=== PATIENT | female | born 1955 | race Caucasian/White ===

== ENCOUNTER 2019-05-02 17:39 | Inpatient (IN) | payer MEDICARE, MEDICAID, SELFPAY ==
[2019-05-02] VITALS (7 sets, daily range): BP systolic 124–149; BP diastolic 59–83; PULSE 78–93; RESP 15–19; TEMP 36.5; O2SAT 94–98; BMI 19.9
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
--- NOTE | 2019-05-02 17:52 | ECG_ITS ---
Measurements Intervals [place] Rate: 92 P: 71 IA: 133 QRS: 36 QRSD: 96 T: 62 QT: 366 QTc: 453 SINUS RHYTHM SEPTAL MYOCARDIAL INFARCTION , OF INDETERMINATE AGE [40+ ms Q WAVE IN V1/V2] No previous ECG available for comparison Electronically Signed On 05-02-2019 21:19:51 TECHNICAL FELLOW by Rebeca Mckeon M.D. [id number]
[2019-05-02] MEDS: morphine 4 mg/mL SDV 1 mL IVP (18:02)
[2019-05-02] MEDS: ondansetron 2 mg/ML SDV 2 mL 4 MG IVP (18:02)
[2019-05-02 18:12] LABS: Basophils % 0.5 %; Eosinophils % 0.5 %; Hematocrit 28.1 % (37.0-47.0); Hemoglobin 8.5 g/dL (11.5-15.3); Lymphocytes # 1.5 10^3/uL (0.8-4.8); Lymphocytes % 16.5 %; Mean Corpuscular HGB Conc 30.2 g/dL (30.0-36.0); Mean Corpuscular Hemoglobin 21.7 pg (28.0-34.0); Mean Corpuscular Volume 71.7 fL (81-99); Monocytes # 0.8 10^3/uL (0.2-0.9); Monocytes % 9.2 %; Neutrophils # 6.4 10^3/uL (1.8-7.7); Nucleated Red Blood Cells % 0 %; Platelet Count 231 10^3/cmm (130-400); Red Blood Count 3.92 10^6/uL (4.1-5.3); Red Cell Distribution Width 20.9 % (12.1-15.1); White Blood Count 8.8 10^3/uL (4.0-10.0)
[2019-05-02 18:27] LABS: Troponin(5th) Baseline 30 ng/mL (0-10)
[2019-05-02 18:28] LABS: Alanine Aminotransferase 49 U/L (0-33); Albumin Level 2.3 g/dL (3.5-5.2); Alkaline Phosphatase 142 IU/L (35-105); Anion Gap 11.3 (5-19); Aspartate Amino Transferase 50 U/L (0-32); Blood Urea Nitrogen 13 mg/dL (8-23); Calcium 8.3 mg/dL (8.5-10.5); Carbon Dioxide 25 mmol/L (22-29); Chloride 98 mmol/L (98-107); Globulin 4.8 g/dL (1.3-4.6); Glucose 83 mg/dL (65-115); Lipase 59 U/L (13-60); Potassium 3.3 mmol/L (3.5-5.1); Sodium 131 mmol/L (136-145); Total Bilirubin 0.6 mg/dL (0.15-1.2); Total Protein 7.1 g/dL (6.6-8.7)
--- NOTE | 2019-05-02 19:03 | XRR_ITS ---
PROCEDURE INFORMATION: Exam: XR Chest, 1 View Exam date and time: 05/02/2019 7:41 PM Age: 63 years old Clinical indication: Chest pain; Type not specified TECHNIQUE: Imaging protocol: XR of the chest Views: 1 view. COMPARISON: CR Chest 2 views* [id number] 01/29/2019 3:40 AM FINDINGS: Lungs: Opacification left upper lobe left mid lung and to a lesser degree the left lung base. Subpulmonic effusion. Findings are progressive from 01-29-19. Correlate regarding known history. Pleural space: See Lungs Finding. Heart/Mediastinum: Unremarkable. No cardiomegaly. Bones/joints: Unremarkable. XR/XR chest 1V portable [id number] IMPRESSION: Opacification left upper lobe left mid lung and to a lesser degree the left lung base. Subpulmonic effusion. Findings are progressive from 01-29-19. Correlate regarding known history.
--- NOTE | 2019-05-02 19:15 | PC.NURSE ---
Pt provided with meal.
--- NOTE | 2019-05-02 19:18 | PC.NURSE ---
Introduced self to patient and initiated vital signs. Patient presents A&O x 4. NAD, ABCs intact, MAEW and agreeable to treatment. Respirations are even and unlabored. Pt states that the chief complaint for the ER visit today is due to chest pain which pt rates as 1/10 at present due to recent dose of morphine. IV observed in right AC and flushed for patency. Pt denies any vision disturbances or lightheadedness. Bed left in lowest position in semi-fowlers with side rails up.Reassured patient of needs and will continue to monitor.
--- NOTE | 2019-05-02 19:42 | CTR_ITS ---
PROCEDURE INFORMATION: Exam: CT Angiography Chest With Contrast Exam date and time: 05/02/2019 7:59 PM Age: 63 years old Clinical indication: Cough; Additional info: Cp TECHNIQUE: Imaging protocol: Computed tomographic angiography of the chest with intravenous contrast. 3D rendering: MIP and/or 3D reconstructed images were created by the technologist. Total DLP: 509.59 mGy-cm Radiation optimization: All CT scans at this facility use at least one of these dose optimization techniques: automated exposure control; mA and/or kV adjustment per patient size (includes targeted exams where dose is matched to clinical indication); or iterative reconstruction. Contrast material: OMNI 350; Contrast volume: 95 ml; Contrast route: IV; COMPARISON: CR XR chest 1V portable [id number] 05/02/2019 7:29 PM FINDINGS: Pulmonary arteries: Normal. No pulmonary emboli. Aorta: Unremarkable. No aortic aneurysm. No aortic dissection. Lungs: Calcified granuloma in the left lower lobe. 5 mm nodule in the right upper lobe, image 9. 4 mm nodule in the right lower lobe, image 30. Mild scattered tree-in-bud type opacities within the right upper and left lower lobes. Dense consolidation throughout the majority of the left upper lobe with loss of multiple air bronchograms. Mild atelectasis in the posterior left lower lobe. Pleural space: Small left pleural effusion. Heart: Unremarkable. No cardiomegaly. No pericardial effusion. Spleen: Enlarged spleen measuring 14.4 cm. Intraperitoneal space: Mild ascites. Lymph nodes: Calcified left hilar lymph nodes. Subcentimeter mediastinal lymph nodes. Bones/joints: Unremarkable. No acute fracture. Soft tissues: Unremarkable. CT/CT angio chest PE protcl [id number] IMPRESSION: 1. No evidence for pulmonary embolus. 2. Dense consolidation with loss of air bronchograms involving a large portion of the left upper lobe. This most likely represents lobar pneumonia. An underlying neoplastic process cannot be excluded. CT follow-up to document normal expected resolution after appropriate therapy recommended. 3. Scattered tree-in-bud opacities in the right upper and left lower lobes is consistent with atypical infection. 4. Small left pleural effusion. 5. Mild ascites. 6. Enlarged spleen. 7. Pulmonary nodules measuring up to 5 mm. For patients at low risk (minimal or absent history of smoking and of other known risk factors), no routine follow-up is indicated. For patients at high risk (history of smoking or of other known risk factors), consider optional CT at 12 months. (Brandyn et al., Fleischner Society, 2017). Radiation Dose CTDIVOL = (mGy): DLP = 509.59 (mGy-cm)
--- NOTE | 2019-05-02 19:52 | ECG_ITS ---
Measurements Intervals [place] Rate: 88 P: 57 WI: 139 QRS: 38 QRSD: 98 T: 64 QT: 375 QTc: 455 SINUS RHYTHM SEPTAL MYOCARDIAL INFARCTION , OF INDETERMINATE AGE [40+ ms Q WAVE IN V1/V2] No previous ECG available for comparison Electronically Signed On 05-02-2019 21:23:05 EXHAUSTER ENGINEER by Rebeca Mckeon M.D. [email or web address]
[2019-05-02 20:23] LABS: Troponin 5 2HR 30.27 ng/mL (0-10); Troponin 5 2HR Delta 0.27 ABS# (0-10)
[2019-05-02] MEDS: iohexol 350 mg/mL 100 mL Btl 95 ML IV (21:54)
[2019-05-02] MEDS: cefTRIAXone 1,000 MG in sodium chloride 0.9% (plus) 50 ML 100 MG IV (22:43)
[2019-05-02] MEDS: azithromycin 500 MG in sodium chloride 0.9% 250 ML 250 MG IV (23:03)
--- NOTE | 2019-05-02 23:52 | ECG_ITS ---
Measurements Intervals [place] Rate: 88 P: 69 WA: 141 QRS: 36 QRSD: 115 T: 39 QT: 387 QTc: 469 SINUS RHYTHM SEPTAL MYOCARDIAL INFARCTION , OF INDETERMINATE AGE [40+ ms Q WAVE IN V1/V2] Compared to ECG 05/02/2019 20:52:42 No significant changes Electronically Signed On 05-03-2019 11:15:46 PEST CONTROL SERVICE SALES AGENT by Rebeca Mckeon M.D. [id number]
[2019-05-03] VITALS (20 sets, daily range): BP systolic 108–157; BP diastolic 53–78; PULSE 80–109; RESP 16–20; TEMP 36.6–37.4; O2SAT 90–97
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
[2019-05-03 00:26] LABS: Troponin 5 6HR 32.14 ng/mL (0-10); Troponin 5 6HR Delta 2.14 ng/L (0-12)
[2019-05-03] MEDS: ipratropium-albuterol 3 mL Neb INHALATION ×3 (02:38→20:13)
[2019-05-03] MEDS: sodium chlor 0.9% + KCl 20 mEq 20 MEQ/1,000 ML BAG 100 MEQ IV (03:12)
--- NOTE | 2019-05-03 03:16 | PC.NURSE ---
At bedside and patient is holding a cup of tea. Explained to the patient that the physician wants her to have nothing to eat or drink except sips with medications. Patient states, I don't care this will help me lungs. I am entitled to some privileges and drinking this tea is one of them. Encouraged patient to let me have the tea as she may need to have some tests today that would require her to have nothing by mouth. Patient states, I tell you what my ribs hurt from coughing if you give me a pain pill I will give you the tea. Explained to the patient I would look at her orders and see if she has something for pain but that she really needed to stop drinking the tea so we can treat her appropriately. Patient states, I will wait for my pain pill.
[2019-05-03] MEDS: HYDROcodone-acetaminophen 5-325 mg Tablet 1 TAB PO (03:30)
--- NOTE | 2019-05-03 03:30 | PC.NURSE ---
Patient drank all of the tea before receiving her pain pill. All water and liquids moved away from patient's bedside table at this time. Reminded patient that she in nothing by mouth until the order is changed.
--- NOTE | 2019-05-03 04:58 | PC.NURSE ---
Patient voided on arrival to the floor and had not voided since. Updated patient that she needs to void in the hat and that we need a urine sample. Patient verbalized understanding.
[2019-05-03 05:40] LABS: Magnesium 1.7 mg/dL (1.7-2.3); Phosphorus 3.3 mg/dL (2.5-4.5)
[2019-05-03 05:47] LABS: Iron 12 ug/dL (37-145); Percent Saturation 4.7 % (20-50); Thyroid Stimulating Hormone 3.04 uIU/mL (0.27-4.20); Total Iron Binding Capacity 251 mcg/dl; Unsaturated Iron Binding 239 ug/dL (112-347)
[2019-05-03 05:53] LABS: INR 1.23 (0.8-1.2)
[2019-05-03 05:54] LABS: Partial Thromboplastin Time 29.2 SECONDS (23.9-36.7)
[2019-05-03 06:06] LABS: NT Pro B Type Natriuretic Pept 356 pg/mL (0-125)
--- NOTE | 2019-05-03 09:07 | CT_ITS ---
WS: [id number] CT ABDOMEN PELVIS TECHNIQUE: Contrast-enhanced CT of the abdomen and pelvis with coronal and sagittal reformatted image s. CLINICAL INFORMATION: liver cirhosis, galbladder mass? COMPARISON: CT 2 18,016 DLP: 539.[address] scans at [facility] use at least one of these dose optimization techniques: automat ed exposure control; mA and/or kV adjustment per patient size (includes targeted exams where dose is matched to clinical indication); or iterative reconstruction. FINDINGS: Cirrhotic contour to the liver. Small amount of perihepatic ascites. Fluid in the gallbladder fossa l ikely due to hepatic disease. Cholelithiasis. Splenomegaly. Findings suggestive of liver cirrhosis wi th portal hypertension. Small left pleural effusion with left upper lobe consolidation similar in appearance to the recent CT A. Trace right pleural fluid. Normal GE junction. Normal pancreas. Portal vein and splenic vein appea r patent. Diffuse body wall anasarca. Mesenteric edema. Adrenal glands are normal. Renal parenchymal enhancement. Aortic calcification. Small amount of ascites in the pelvis. Scattered stool in the sigmoid colon. Lumbar curve. CT/CT abdomen pelvis w con* [id number] IMPRESSION: 1. Liver cirrhosis with splenomegaly. Findings suggestive of portal hypertensi on. 2. Small amount of perihepatic fluid. Small amount of pelvic ascites. 3. Diffuse body wall anasarca. 4. Small left pleural effusion with left upper lobe consolidation and pneumoni a similar to the prior PE study. 5. Normal renal parenchymal enhancement. No hydronephrosis. 6. Cholelithiasis.
[2019-05-03 10:09] LABS: C Reactive Protein 56.8 mg/L (0.0-4.9)
[2019-05-03 10:17] LABS: Gamma Glutamyl Transferase 34 U/L (5-36); Thyroid Stimulating Hormone 3.03 uIU/mL (0.27-4.20)
[2019-05-03 10:18] LABS: Procalcitonin 0.22 ng/mL (0-0.5)
[2019-05-03 10:20] LABS: HIV 1 & 2 Antibody Non-Reactive (Non-Reactiv); HIV 1 & 2 Antigen Non-Reactive (Non-Reactiv)
[2019-05-03 10:23] LABS: Hepatitis A Antibody IgM. Non-Reactive (Nonreactive); Hepatitis B Core IgM Non-Reactive (Nonreactive); Hepatitis B Surface Antigen. Non-Reactive (Nonreactive); Hepatitis C Virus Antibody Reactive (Nonreactive)
[2019-05-03 10:26] LABS: Rapid Plasma Reagin Syphilis Nonreactive (Nonreactive)
[2019-05-03 10:29] LABS: Ferritin 39 ng/mL (15-150)
[2019-05-03] MEDS: morphine 4 mg/mL SDV 1 mL 1 MG IVP ×2 (10:31→22:53)
[2019-05-03] MEDS: LORazepam 2 mg/mL INJ 1 mL 1 MG IVP (10:32)
[2019-05-03 10:43] LABS: Erythrocyte Sedimentation Rate 33 mm/hr (0-15)
--- NOTE | 2019-05-03 15:09 | P.PN_ITS ---
Subjective Subjective: Interval history: This morning patient continues to have intermittent episodes of hemoptysis, has a lot of pain in the left side of her chest wall, is quite anxious this morning, is quite anxious about having a bronchoscopy and a needle biopsy, is quite anxious and teary about the prospect of having cancer Vitals/I&O/Wt Last Vital Signs Temp 99.1 F 05/03/19 13:43 Pulse 93 05/03/19 13:43 Resp 18 05/03/19 13:43 BP 135/77 05/03/19 12:00 Pulse Ox 96 05/03/19 13:43 05/03/19 05/03/19 05/03/19 06:59 14:59 22:59 Intake Total 730 / 730 Output Total 500 / 500 700 / 700 Balance 230 / 230 -700 / -700 Weight last 48 hrs Weight 63.276 kg Weight 61.235 kg Physical Exam Const: COMMON NORMALS: no apparent distress and oriented x3 HENMT: COMMON NORMALS: normocephalic HEAD & SCALP: normocephalic Neck/C-Spine: COMMON NORMALS: no JVD Resp: COMMON NORMALS: normal respiratory effort, no retractions, no use of accessory muscles and clear to auscultation bilaterally AUSCULTATION: clear to auscultation bilaterally Cardio: COMMON NORMALS: no JVD, regular rate, regular rhythm, S1 normal heart sound and S2 normal heart sound RATE: regular rate RHYTHM: regular rhythm HEART SOUNDS: S1 normal and S2 normal GI: COMMON NORMALS: normal to inspection, nondistended, normoactive bowel sounds, soft to palpation, non-tender, no hepatosplenomegaly, no masses and no bruits PALPATION: Yes soft and Yes no hepatosplenomegaly Extremity: COMMON NORMALS: normal capillary refill, no clubbing, cyanosis or edema, no calf tenderness and no pedal edema Neuro: COMMON NORMALS: oriented x3 Psych: COMMON NORMALS: mental status grossly normal Data : 05/02/19 18:00 05/02/19 18:00 Micro: Microbiology 05/02/19 18:00 Blood Culture - Preliminary Blood SPECIMEN COLLECTED 05/02/19 22:36 Blood Culture - Preliminary Blood SPECIMEN COLLECTED A&P Assessment and plan (1) Left upper lobe pneumonia: -Pro-Tigre 0.22, CRP 56.8 -Unlikely pneumonia, but will continue azithromycin and Rocephin -Follow blood cultures, respiratory cultures, AFB Status: Acute Code(s): J18.9 - Pneumonia, unspecified organism (2) Mass of left lung: This was identified as early as last January but she has been fearful of work-up and refused to thus far. She is currently willing to consider. I do not know that she will agree to care which might be recommended if this does turntable engineer to be cancer. -Patient had in the past not elected to have treatment, wanted to try herbal treatments and alternative medicine -Patient is agreeable for bronchoscopy, as transthoracic needle biopsy if required, advised the risk and benefits, voiced understanding, all questions answered, agreed to proceed -Is quite teary and anxious about the prospect of the test, the prospect of possibly having cancer, but she states that she is in the hospital because she wants evaluation -She is a full code, her next of kin is Grace who is her neighbor numbers [phone], her son is Pascual, [phone], most of her family is in [place] -Patient states that she lives in [facility] -I have reviewed the images with Dr. Xavier, images look a lot like pulmonary malignancy, agreed for further evaluation hopefully on Monday Plan: -Hopefully will have a bronchoscopy and possible biopsy on Monday -Ordered AFP, TB QuantiFERON to rule out TB Status: Chronic Code(s): R91.8 - Other nonspecific abnormal finding of lung field (3) Microcytic anemia: -has evidence of iron deficiency anemia, ferritin 39, iron 12, start oral replacement -Some component can be chronic disease related to malignancy Status: Acute Code(s): D50.9 - Iron deficiency anemia, unspecified (4) Bipolar 1 disorder: According to old psychiatric records here. Not on any medication by her choosing. She almost seems more schizophrenic or schizotypical in talking with her. Requires attention and effort and reassurance but generally cooperative despite her fears and preferences at the moment -Has had multiple inpatient admissions for bipolar disorder, has not been on any treatment for some time. Status: Chronic Code(s): F31.9 - Bipolar disorder, unspecified (5) Chronic hepatitis C virus genotype 1b infection: With at least some evidence of cirrhosis from this as evidenced by minimal transaminitis, some ascites fluid, splenomegaly. -CT scan shows evidence of splenomegaly and liver cirrhosis -We will require treatment for hepatitis C at some point, and further evaluation with assistant unit forester or local physician Status: Chronic Code(s): B18.2 - Chronic viral hepatitis C (6) Protein calorie malnutrition: Status: Acute Qualifiers: Protein-calorie malnutrition severity: moderate Qualified Code(s): E44.0 - Moderate protein-calorie malnutrition Code(s): E46 - Unspecified protein-calorie malnutrition (7) Hypertrophic pulmonary osteoarthropathy: Presumptive diagnosis based on examination of hands and other clinical findings Status: Chronic Code(s): M89.40 - Other hypertrophic osteoarthropathy, unspecified site (8) Nicotine dependence, cigarettes, with other nicotine-induced disorders: Possibly in early remission Status: Chronic Code(s): F17.218 - Nicotine dependence, cigarettes, with other nicotine-induced disorders Additional A&P Information GI prophylaxis with Protonix Lactobacillus Check TSH Check urinalysis Periodically monitor LFTs for change When taking p.o. supplements Nicotine patch as needed SCDs for DVT prophylaxis, no pharmacological prophylaxis secondary to current hemoptysis and anemia PT evaluation patient financial services manager consult to assist with delineating support system and possible follow-up. 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 Current disposition plan is home and I doubt that patient would consider anything else but we will need to see if she might benefit from any services at least in the short-term Full code currently. I attempted to discuss this with patient but it upset her. I get a sense she does not want to think about such a topic because it scares her but knows that she probably should think about it. Attestations Medical Necessity Statement*: Patient requires hospitalization for pneumonia, lung mass, Coding Level of Care Code Acute Fertilizer Applicator for g Fwd Diagnoses Left upper lobe pneumonia J18.9 Mass of left lung R91.8 Microcytic anemia D50.9 Bipolar 1 disorder F31.9 Chronic hepatitis C virus genotype 1b infection B18.2 Protein calorie malnutrition E44.0 Protein-calorie malnutrition severity: moderate Hypertrophic pulmonary osteoarthropathy M89.40 Nicotine dependence, cigarettes, with other nicotine-induced disorders F17.218
--- NOTE | 2019-05-03 16:18 | PC.PT ---
PT evaluation attempted this afternoon, patient complaining of pain all over; nursing staff report patient up several times today to and from toilet with standby assistance, will discuss with physician
[2019-05-03] MEDS: ferrous sulfate EC 325 mg Tablet PO (17:25)
[2019-05-03] MEDS: lactobacillus 1 Tablet 1 TAB PO (17:25)
[2019-05-03] MEDS: cefTRIAXone 1,000 MG in sodium chloride 0.9% (plus) 50 ML 100 MG IV (22:44)
[2019-05-04] VITALS (17 sets, daily range): BP systolic 110–130; BP diastolic 55–64; PULSE 64–108; RESP 16–24; TEMP 36.6–38.3; O2SAT 88–98
--- NOTE | 2019-05-04 05:16 | PC.NURSE ---
Changed patient's bed at this time. Patient continues to incontinent. When I ask patient what is happening she does not answer me. Explained to patient that she used the bathroom last night and I need to know if she feels like something changed. Explained to patient that the doctor has ordered a urine sample and it has been a over 24 hours since it was ordered. Patient states, I am just a old lady. I can't help it. Asked patient to use the call light and call out as soon a she feel like she needs to go.
[2019-05-04 05:40] LABS: Basophils % 0.3 %; Eosinophils % 0.4 %; Hematocrit 26.6 % (37.0-47.0); Hemoglobin 8.1 g/dL (11.5-15.3); Lymphocytes # 1.2 10^3/uL (0.8-4.8); Lymphocytes % 12.3 %; Mean Corpuscular HGB Conc 30.5 g/dL (30.0-36.0); Mean Corpuscular Hemoglobin 21.9 pg (28.0-34.0); Mean Corpuscular Volume 71.9 fL (81-99); Mean Platelet Volume 10.7 fL (7.4-10.4); Monocytes % 9.8 %; Neutrophils # 7.7 10^3/uL (1.8-7.7); Neutrophils % 76.8 %; Nucleated Red Blood Cells % 0 %; Platelet Count 199 10^3/cmm (130-400); Positive M 1
[2019-05-04 06:09] LABS: Alanine Aminotransferase 33 U/L (0-33); Albumin Level 1.9 g/dL (3.5-5.2); Alkaline Phosphatase 122 IU/L (35-105); Anion Gap 11.7 (5-19); Aspartate Amino Transferase 39 U/L (0-32); Blood Urea Nitrogen 9 mg/dL (8-23); Calcium 8.1 mg/dL (8.5-10.5); Carbon Dioxide 24 mmol/L (22-29); Chloride 100 mmol/L (98-107); Globulin 4.3 g/dL (1.3-4.6); Glucose 111 mg/dL (65-115); Magnesium 1.7 mg/dL (1.7-2.3); Phosphorus 3.1 mg/dL (2.5-4.5); Potassium 3.7 mmol/L (3.5-5.1); Sodium 132 mmol/L (136-145); Total Bilirubin 0.4 mg/dL (0.15-1.2); Total Protein 6.2 g/dL (6.6-8.7)
--- NOTE | 2019-05-04 06:30 | PC.NURSE ---
Patient ambulated to the bathroom at this time with one assist. Patient provided urine sample and had a large bowel movement. Patient is requesting something to drink. Reminded patient that she is to have nothing by mouth until the doctor changes the order. Patient verbally states okay.
--- NOTE | 2019-05-04 06:35 | PC.NURSE ---
US at bedside at bedside at this time.
[2019-05-04 06:38] LABS: Slide Review Slide Review Perform
[2019-05-04 07:58] LABS: Blood Urine 3+ (Negative); Glucose Urine UA Norm (Normal); Ketones Urine Negative (Negative); Protein Urine Trace (Negative); Urine Appearance Clear (CLEAR); Urine Color Yellow (Yellow); pH Urine 5 (5-7)
[2019-05-04 07:59] LABS: Bilirubin Urine Neg (NEGATIVE); Nitrate Urine Negative (Negative); Urobilinogen Urine 4 mg/dL (Negative)
[2019-05-04 08:00] LABS: Add Urine Microscopic? YES; Leukocyte Esterase Urine Negative (Negative)
[2019-05-04] MEDS: acetaminophen 325 mg Tablet 500 MG PO (08:24)
[2019-05-04] MEDS: ferrous sulfate EC 325 mg Tablet PO ×2 (08:24→17:41)
[2019-05-04] MEDS: ipratropium-albuterol 3 mL Neb INHALATION ×3 (08:25→20:19)
[2019-05-04] MEDS: azithromycin 250 mg Tablet 500 MG PO (08:26)
[2019-05-04] MEDS: lactobacillus 1 Tablet 1 TAB PO ×2 (08:28→17:40)
[2019-05-04] MEDS: pantoprazole DR 40 mg Tablet PO (08:28)
[2019-05-04 08:30] LABS: WBC Urine 0-4 /hpf (0-5)
[2019-05-04 08:31] LABS: Add Urine Culture? No; Bacteria Urine TRACE; Calcium Oxalate Crystals Urine 0-4 /hpf; Mucus Urine TRACE; Squamous Epithelial Cell Urine 0-4 (0-5)
--- NOTE | 2019-05-04 09:03 | USR_ITS ---
PROCEDURE INFORMATION: Exam: US Abdomen Complete Exam date and time: 05/04/2019 6:27 AM Age: 63 years old Clinical indication: Abnormal findings; Abnormal lab test; Elevated liver enzymes; Additional info: Transaminitis TECHNIQUE: Imaging protocol: Real-time ultrasound of the abdomen with image documentation. COMPARISON: US GALLBLADDER 04/15/2015 7:[address] ABDOMEN/PELVIS 05/03/2019 10:05:23 AM FINDINGS: Liver: The liver parenchyma is heterogeneous which can be associated with cirrhosis. No focal liver mass or intrahepatic biliary ductal dilatation. Gallbladder: There is cholelithiasis. The gallbladder is contracted. Nonspecific gallbladder wall thickening. Common bile duct: The common bile duct measures 5 mm in diameter. Pancreas: The visualized portion of the pancreas is within normal limits. Right kidney: The right kidney measures 11.8 cm in length. No hydronephrosis. Left kidney: The left kidney measures 9.6 cm in length. No hydronephrosis. Spleen: The spleen measures 10.7 cm in length and is homogeneous. Aorta: The visualized portion of the abdominal aorta is within normal limits. Inferior vena cava: The visualized portion of the inferior vena cava is within normal limits. Intraperitoneal space: There is ascites. US/US abdomen complete* [id number] IMPRESSION: 1. Heterogeneous liver parenchyma which can be seen with cirrhosis. 2. Cholelithiasis. No biliary ductal dilatation.
--- NOTE | 2019-05-04 09:11 | PC.NURSE ---
student financial services counselor approached me with concern over a patient statement of If I could get my clothes from t he chair I would take that aspirin you gave me. Its in my pocket. I would take care of the pain myself. I asked patient if I could look through her medication and tea to make sure there were no potential interactions with what the phyician is prescribing for her here. Staff and security notified. Belongings were searched by two nurses in front of patient. Numerous loose medications. vitamins, herbal teas and substances identified. Physician notified. Medications placed in pyxis. Pipe, tobacco and lighters sent with security.
--- NOTE | 2019-05-04 10:19 | PC.NURSE ---
student development advisor approached this nurse with a concern stating, I overheard the patient on the phone say, 'I'm hurting so bad everywhere. If I could get over to my clothes I would take the aspirin that you gave me.' The nurse spoke with the patient and educated her on risks of taking medications while in the hospital that the physician has not prescribed because of potential interactions. The patient verbalized understanding. This nurse asked the patient if it was alright to go through personal belongings and lock loose medications in the pyxis. The patient verbalized that this was ok. Two nurses searched through belongings. Numerous items were found including: medications in unlabeled containers, vitamins, herbal teas, controlled substances, and multiple lighters and matches. The patient was educated on the importance of not smoking while on oxygen and patient verbalized understanding of information. Medications were secured in pyxis and controlled substances and lighters were given to security. Pain was addressed. Nurse to continue to monitor.
--- NOTE | 2019-05-04 13:00 | PC.PT ---
pt has bipolar, pt may not be appropriate for therapy due to pt agitation and anxiety, nsg consulted regarding same, pt refused therapy x3 despite pt ed.
[2019-05-04] MEDS: morphine 4 mg/mL SDV 1 mL 1 MG IVP ×2 (13:46→20:38)
[2019-05-04] MEDS: LORazepam 2 mg/mL INJ 1 mL 1 MG IVP (17:55)
--- NOTE | 2019-05-04 19:41 | PM.PN ---
Subjective Subjective: Interval history: Patient is doing better this morning, still quite anxious and teary about having a bronchoscopy on Monday, but otherwise is doing well Some drug paraphernalia was removed from her bedside, they were taken by security staff Vitals/I&O/Wt Last Vital Signs Temp 98.5 F 05/04/19 19:33 Pulse 97 05/04/19 19:33 Resp 24 H 05/04/19 19:33 BP 120/59 05/04/19 19:33 Pulse Ox 93 05/04/19 19:33 05/04/19 05/04/19 05/04/19 06:59 14:59 22:59 Intake Total 50 / 140 1320 / 1320 480 / 1800 Output Total 300 / 1000 600 / 600 Balance -250 / -860 1320 / 1320 -120 / 1200 Weight last 48 hrs Weight 63.276 kg Physical Exam Const: COMMON NORMALS: no apparent distress and oriented x3 HENMT: COMMON NORMALS: normocephalic HEAD & SCALP: normocephalic Neck/C-Spine: COMMON NORMALS: no JVD Resp: COMMON NORMALS: normal respiratory effort, no retractions, no use of accessory muscles and clear to auscultation bilaterally AUSCULTATION: clear to auscultation bilaterally Cardio: COMMON NORMALS: no JVD, regular rate, regular rhythm, S1 normal heart sound and S2 normal heart sound RATE: regular rate RHYTHM: regular rhythm HEART SOUNDS: S1 normal and S2 normal GI: COMMON NORMALS: normal to inspection, nondistended, normoactive bowel sounds, soft to palpation, non-tender, no hepatosplenomegaly, no masses and no bruits PALPATION: Yes soft and Yes no hepatosplenomegaly Extremity: COMMON NORMALS: normal capillary refill, no clubbing, cyanosis or edema, no calf tenderness and no pedal edema Neuro: COMMON NORMALS: oriented x3 Psych: COMMON NORMALS: mental status grossly normal Data : 05/04/19 05:32 05/04/19 05:32 Micro: Microbiology 05/02/19 18:00 Blood Culture - Preliminary Blood NEGATIVE TO DATE 05/02/19 22:36 Blood Culture - Preliminary Blood NEGATIVE TO DATE A&P Assessment and plan (1) Left upper lobe pneumonia: -Pro-Tigre 0.22, CRP 56.8 -Unlikely pneumonia, but will continue azithromycin and Rocephin -Follow blood cultures, respiratory cultures, AFB Status: Acute Code(s): J18.9 - Pneumonia, unspecified organism (2) Mass of left lung: This was identified as early as last January but she has been fearful of work-up and refused to thus far. She is currently willing to consider. I do not know that she will agree to care which might be recommended if this does returned telephone equipment appraiser to be cancer. -Patient had in the past not elected to have treatment, wanted to try herbal treatments and alternative medicine -Patient is agreeable for bronchoscopy, as transthoracic needle biopsy if required, advised the risk and benefits, voiced understanding, all questions answered, agreed to proceed -Is quite teary and anxious about the prospect of the test, the prospect of possibly having cancer, but she states that she is in the hospital because she wants evaluation -She is a full code, her next of kin is Grace who is her neighbor numbers [phone], her son is Pascual, [phone], most of her family is in [place] -Patient states that she lives in [facility] -I have reviewed the images with Dr. Xavier, images look a lot like pulmonary malignancy, agreed for further evaluation hopefully on Monday Plan: -Hopefully will have a bronchoscopy and possible biopsy on Monday -Ordered AFP, TB QuantiFERON to rule out TB Status: Chronic Code(s): R91.8 - Other nonspecific abnormal finding of lung field (3) Microcytic anemia: -has evidence of iron deficiency anemia, ferritin 39, iron 12, start oral replacement -Some component can be chronic disease related to malignancy Status: Acute Code(s): D50.9 - Iron deficiency anemia, unspecified (4) Bipolar 1 disorder: According to old psychiatric records here. Not on any medication by her choosing. She almost seems more schizophrenic or schizotypical in talking with her. Requires attention and effort and reassurance but generally cooperative despite her fears and preferences at the moment -Has had multiple inpatient admissions for bipolar disorder, has not been on any treatment for some time. Status: Chronic Code(s): F31.9 - Bipolar disorder, unspecified (5) Chronic hepatitis C virus genotype 1b infection: With at least some evidence of cirrhosis from this as evidenced by minimal transaminitis, some ascites fluid, splenomegaly. -CT scan shows evidence of splenomegaly and liver cirrhosis -We will require treatment for hepatitis C at some point, and further evaluation with windows mobile developer or local physician Status: Chronic Code(s): B18.2 - Chronic viral hepatitis C (6) Protein calorie malnutrition: Status: Acute Qualifiers: Protein-calorie malnutrition severity: moderate Qualified Code(s): E44.0 - Moderate protein-calorie malnutrition Code(s): E46 - Unspecified protein-calorie malnutrition (7) Hypertrophic pulmonary osteoarthropathy: Presumptive diagnosis based on examination of hands and other clinical findings Status: Chronic Code(s): M89.40 - Other hypertrophic osteoarthropathy, unspecified site (8) Nicotine dependence, cigarettes, with other nicotine-induced disorders: Possibly in early remission Status: Chronic Code(s): F17.218 - Nicotine dependence, cigarettes, with other nicotine-induced disorders (9) Liver cirrhosis: -Patient has radiologic and blood evidence of liver cirrhosis, and portal hypertension likely secondary to chronic hepatitis C -Patient denies hemoptysis, denies episodes of confusion, denies blacking out -Patient will need a follow-up with windows mobile developer for full evaluation of liver cirrhosis, and treatment for hepatitis C Status: Acute Code(s): K74.60 - Unspecified cirrhosis of liver Additional A&P Information GI prophylaxis with Protonix Lactobacillus Check TSH Check urinalysis Periodically monitor LFTs for change When taking p.o. supplements Nicotine patch as needed SCDs for DVT prophylaxis, no pharmacological prophylaxis secondary to current hemoptysis and anemia PT evaluation interlibrary loan services librarian consult to assist with delineating support system and possible follow-up. At one point in time she had a pillowcase cutter at [facility] here but I have no idea if that is still true. Current disposition plan is home and I doubt that patient would consider anything else but we will need to see if she might benefit from any services at least in the short-term Full code currently. I attempted to discuss this with patient but it upset her. I get a sense she does not want to think about such a topic because it scares her but knows that she probably should think about it. Attestations Medical Necessity Statement*: Requires hospitalization due to left upper lobe pneumonia, mass of lung, liver cirrhosis Coding Level of Care Code Acute Mill Representative for Chg Fwd Diagnoses Left upper lobe pneumonia J18.9 Mass of left lung R91.8 Microcytic anemia D50.9 Bipolar 1 disorder F31.9 Chronic hepatitis C virus genotype 1b infection B18.2 Protein calorie malnutrition E44.0 Protein-calorie malnutrition severity: moderate Hypertrophic pulmonary osteoarthropathy M89.40 Nicotine dependence, cigarettes, with other nicotine-induced disorders F17.218 Liver cirrhosis K74.60
[2019-05-04] MEDS: cefTRIAXone 1,000 MG in sodium chloride 0.9% (plus) 50 ML 100 MG IV (21:31)
[2019-05-05] VITALS (17 sets, daily range): BP systolic 112–131; BP diastolic 52–61; PULSE 92–105; RESP 18–32; TEMP 36.4–37.2; O2SAT 90–97
[2019-05-05] MEDS: morphine 4 mg/mL SDV 1 mL 1 MG IVP ×4 (01:21→20:42)
[2019-05-05] MEDS: ipratropium-albuterol 3 mL Neb INHALATION ×4 (02:53→20:04)
[2019-05-05 05:47] LABS: Basophils % 0.3 %; Eosinophils # 0.1 10^3/uL (0.0-0.8); Eosinophils % 0.9 %; Hematocrit 26.1 % (37.0-47.0); Hemoglobin 7.8 g/dL (11.5-15.3); Lymphocytes # 1.3 10^3/uL (0.8-4.8); Lymphocytes % 14.3 %; Mean Corpuscular HGB Conc 29.9 g/dL (30.0-36.0); Mean Corpuscular Hemoglobin 21.6 pg (28.0-34.0); Mean Corpuscular Volume 72.3 fL (81-99); Monocytes # 0.9 10^3/uL (0.2-0.9); Monocytes % 9.3 %; Neutrophils # 6.9 10^3/uL (1.8-7.7); Neutrophils % 74.9 %; Nucleated Red Blood Cells % 0 %; Platelet Count 196 10^3/cmm (130-400); Red Blood Count 3.61 10^6/uL (4.1-5.3); Red Cell Distribution Width 20.9 % (12.1-15.1); White Blood Count 9.2 10^3/uL (4.0-10.0)
[2019-05-05 06:14] LABS: Slide Review Slide Review Perform
[2019-05-05 06:20] LABS: Alanine Aminotransferase 27 U/L (0-33); Albumin Level 1.7 g/dL (3.5-5.2); Alkaline Phosphatase 112 IU/L (35-105); Anion Gap 12.5 (5-19); Aspartate Amino Transferase 38 U/L (0-32); Blood Urea Nitrogen 10 mg/dL (8-23); Calcium 7.7 mg/dL (8.5-10.5); Carbon Dioxide 25 mmol/L (22-29); Chloride 98 mmol/L (98-107); Globulin 4.3 g/dL (1.3-4.6); Glomerular Filtration Rate 100.3 mL/min (90-130); Glucose 95 mg/dL (65-115); Magnesium 1.7 mg/dL (1.7-2.3); Phosphorus 2.9 mg/dL (2.5-4.5); Potassium 3.5 mmol/L (3.5-5.1); Sodium 132 mmol/L (136-145); Total Bilirubin 0.4 mg/dL (0.15-1.2)
[2019-05-05] MEDS: acetaminophen 325 mg Tablet 500 MG PO (07:54)
[2019-05-05] MEDS: ferrous sulfate EC 325 mg Tablet PO (07:54)
[2019-05-05] MEDS: azithromycin 250 mg Tablet 500 MG PO (08:00)
[2019-05-05] MEDS: lactobacillus 1 Tablet 1 TAB PO ×2 (08:00→18:12)
[2019-05-05] MEDS: pantoprazole DR 40 mg Tablet PO (08:00)
--- NOTE | 2019-05-05 10:37 | P.PN_ITS ---
Subjective Subjective: Interval history: Patient has no complaints this morning, is a bit anxious about having the bronchoscopy tomorrow, overall doing better Vitals/I&O/Wt Last Vital Signs Temp 99.0 F 05/05/19 07:21 Pulse 102 H 05/05/19 07:21 Resp 20 H 05/05/19 07:21 BP 123/56 05/05/19 07:21 Pulse Ox 94 05/05/19 07:21 05/04/19 05/05/19 05/05/19 22:59 06:59 14:59 Intake Total 530 / 1850 660 / 2510 120 / 120 Output Total 600 / 600 1100 / 1700 Balance -70 / 1250 -440 / 810 120 / 120 Physical Exam Const: COMMON NORMALS: no apparent distress and oriented x3 HENMT: COMMON NORMALS: normocephalic HEAD & SCALP: normocephalic Neck/C-Spine: COMMON NORMALS: no JVD Resp: COMMON NORMALS: normal respiratory effort, no retractions, no use of accessory muscles and clear to auscultation bilaterally AUSCULTATION: clear to auscultation bilaterally Cardio: COMMON NORMALS: no JVD, regular rate, regular rhythm, S1 normal heart sound and S2 normal heart sound RATE: regular rate RHYTHM: regular rhythm HEART SOUNDS: S1 normal and S2 normal GI: COMMON NORMALS: normal to inspection, nondistended, normoactive bowel sounds, soft to palpation, non-tender, no hepatosplenomegaly, no masses and no bruits PALPATION: Yes soft and Yes no hepatosplenomegaly Extremity: COMMON NORMALS: normal capillary refill, no clubbing, cyanosis or edema, no calf tenderness and no pedal edema Neuro: COMMON NORMALS: oriented x3 Psych: COMMON NORMALS: mental status grossly normal Data : 05/05/19 05:02 05/05/19 05:02 Micro: Microbiology 05/04/19 18:40 Gram Stain - Final Sputum - Expectorated Sputum A&P Assessment and plan (1) Left upper lobe pneumonia: -Pro-Tigre 0.22, CRP 56.8 -Unlikely pneumonia, but will continue azithromycin and Rocephin -Follow blood cultures, respiratory cultures, AFB Status: Acute Code(s): J18.9 - Pneumonia, unspecified organism (2) Mass of left lung: This was identified as early as last January but she has been fearful of work-up and refused to thus far. She is currently willing to consider. I do not know that she will agree to care which might be recommended if this does tube turner to be cancer. -Patient had in the past not elected to have treatment, wanted to try herbal treatments and alternative medicine -Patient is agreeable for bronchoscopy, as transthoracic needle biopsy if required, advised the risk and benefits, voiced understanding, all questions answered, agreed to proceed -Is quite teary and anxious about the prospect of the test, the prospect of possibly having cancer, but she states that she is in the hospital because she wants evaluation -She is a full code, her next of kin is Grace who is her neighbor numbers [phone], her son is Pascual, [phone], most of her family is in [place] -Patient states that she lives in [facility] -I have reviewed the images with Dr. Xavier, images look a lot like pulmonary malignancy, agreed for further evaluation hopefully on Monday Plan: -Hopefully will have a bronchoscopy and possible biopsy on Monday, n.p.o. midnight -Ordered AFP, TB QuantiFERON to rule out TB Status: Chronic Code(s): R91.8 - Other nonspecific abnormal finding of lung field (3) Microcytic anemia: -has evidence of iron deficiency anemia, ferritin 39, iron 12, will provide IV replacement -Some component can be chronic disease related to malignancy Status: Acute Code(s): D50.9 - Iron deficiency anemia, unspecified (4) Bipolar 1 disorder: According to old psychiatric records here. Not on any medication by her choosing. She almost seems more schizophrenic or schizotypical in talking with her. Requires attention and effort and reassurance but generally cooperative despite her fears and preferences at the moment -Has had multiple inpatient admissions for bipolar disorder, has not been on any treatment for some time. Status: Chronic Code(s): F31.9 - Bipolar disorder, unspecified (5) Chronic hepatitis C virus genotype 1b infection: With at least some evidence of cirrhosis from this as evidenced by minimal transaminitis, some ascites fluid, splenomegaly. -CT scan shows evidence of splenomegaly and liver cirrhosis -We will require treatment for hepatitis C at some point, and further evaluation with marble installer or local physician Status: Chronic Code(s): B18.2 - Chronic viral hepatitis C (6) Protein calorie malnutrition: Status: Acute Qualifiers: Protein-calorie malnutrition severity: moderate Qualified Code(s): E4 4.0 - Moderate protein-calorie malnutrition Code(s): E46 - Unspecified protein-calorie malnutrition (7) Hypertrophic pulmonary osteoarthropathy: Presumptive diagnosis based on examination of hands and other clinical findings Status: Chronic Code(s): M89.40 - Other hypertrophic osteoarthropathy, unspecified site (8) Nicotine dependence, cigarettes, with other nicotine-induced disorders: Possibly in early remission Status: Chronic Code(s): F17.218 - Nicotine dependence, cigarettes, with other nicotine-induced disorders (9) Liver cirrhosis: -Patient has radiologic and blood evidence of liver cirrhosis, and portal hypertension likely secondary to chronic hepatitis C -Patient denies hemoptysis, denies episodes of confusion, denies blacking out -Patient will need a follow-up with marble installer for full evaluation of liver cirrhosis, and treatment for hepatitis C Status: Acute Code(s): K74.60 - Unspecified cirrhosis of liver Additional A&P Information GI prophylaxis with Protonix Lactobacillus Periodically monitor LFTs for change When taking p.o. supplements Nicotine patch as needed SCDs for DVT prophylaxis, no pharmacological prophylaxis secondary to current hemoptysis and anemia PT evaluation Full code currentl Attestations Medical Necessity Statement*: Patient requires hospitalization for mass of the lung, left upper lobe pneumonia Coding Level of Care Code Acute Marbleizing Machine Tender for Chg Fwd Diagnoses Left upper lobe pneumonia J18.9 Mass of left lung R91.8 Microcytic anemia D50.9 Bipolar 1 disorder F31.9 Chronic hepatitis C virus genotype 1b infection B18.2 Protein calorie malnutrition E44.0 Protein-calorie malnutrition severity: moderate Hypertrophic pulmonary osteoarthropathy M89.40 Nicotine dependence, cigarettes, with other nicotine-induced disorders F17.218 Liver cirrhosis K74.60
--- NOTE | 2019-05-05 11:18 | PC.SOCIAL ---
Pg 2 IMM Explained to pt Pg 2 IMM. Pt verbally understands & signed. Provided pt with a copy & left on pt's bedside table. Signed, dated, & timed, then placed in pt's chart.
--- NOTE | 2019-05-05 18:29 | PC.NURSE ---
i walked into the patients room. There was a dietary lid on the floor. I asked the patient if it was urine in it. She stated to yell at me. i threw the lid in the trash and told her that i would get someone else to come care for her. I went and found Evon who is her nurse for the day.
--- NOTE | 2019-05-05 18:31 | PC.NURSE ---
urinated in the dietary lid and on the floor
[2019-05-05] MEDS: acetaminophen 500 mg Tablet PO (19:39)
[2019-05-05] MEDS: cefTRIAXone 1,000 MG in sodium chloride 0.9% (plus) 50 ML 100 MG IV (21:33)
[2019-05-06] VITALS (36 sets, daily range): BP systolic 103–190; BP diastolic 44–101; PULSE 87–125; RESP 14–34; TEMP 36.5–37.6; O2SAT 84–100
--- NOTE | 2019-05-06 | SCC_ITS ---
Procedure: Name of the procedure: Bronchoscopy with inspection of the airway, endobronchial and transbronchial biopsies, bronchoalveolar lavage and control of bleeding. 49.0 seconds of fluoroscopic guidance, for a cumulative dose of 7.84 mGy, was provided to Dr. Xavier by the radiology department. C-arm images of the chest were saved for the patient's permanent record. MTDD
--- NOTE | 2019-05-06 | XR_ITS ---
WS: [id number] C-ARM RADIOGRAPHS CHEST; 2 IMAGES HISTORY: OR PICS COMPARISON: 05/02/2019 Intraoperative imaging during bronchoscopy. Scope projects over the LEFT thorax. XR/XR chest 1V [id number] IMPRESSION: Intraoperative imaging during bronchoscopy.
[2019-05-06] MEDS: acetaminophen 500 mg Tablet PO ×2 (01:52→23:16)
[2019-05-06] MEDS: ipratropium-albuterol 3 mL Neb INHALATION ×4 (02:59→23:58)
[2019-05-06] MEDS: morphine 4 mg/mL SDV 1 mL 1 MG IVP ×3 (05:16→10:23)
[2019-05-06] MEDS: LORazepam 2 mg/mL INJ 1 mL 1 MG IVP ×3 (05:21→23:55)
[2019-05-06 06:00] LABS: Basophils % 0.3 %; Eosinophils # 0.1 10^3/uL (0.0-0.8); Eosinophils % 1.2 %; Hemoglobin 7.9 g/dL (11.5-15.3); Lymphocytes % 15.8 %; Mean Corpuscular HGB Conc 30.4 g/dL (30.0-36.0); Mean Corpuscular Hemoglobin 22.6 pg (28.0-34.0); Mean Corpuscular Volume 74.3 fL (81-99); Monocytes # 0.6 10^3/uL (0.2-0.9); Monocytes % 8.7 %; Neutrophils # 4.7 10^3/uL (1.8-7.7); Neutrophils % 73.5 %; Nucleated Red Blood Cells % 0 %; Platelet Count 185 10^3/cmm (130-400); Red Cell Distribution Width 21.3 % (12.1-15.1); White Blood Count 6.5 10^3/uL (4.0-10.0)
[2019-05-06 06:32] LABS: Alanine Aminotransferase 24 U/L (0-33); Albumin Level 1.7 g/dL (3.5-5.2); Alkaline Phosphatase 113 IU/L (35-105); Anion Gap 11.2 (5-19); Aspartate Amino Transferase 36 U/L (0-32); Blood Urea Nitrogen 7 mg/dL (8-23); Carbon Dioxide 27 mmol/L (22-29); Chloride 100 mmol/L (98-107); Globulin 4.6 g/dL (1.3-4.6); Glomerular Filtration Rate 123.8 mL/min (90-130); Glucose 100 mg/dL (65-115); Magnesium 1.8 mg/dL (1.7-2.3); Phosphorus 3.5 mg/dL (2.5-4.5); Potassium 3.2 mmol/L (3.5-5.1); Sodium 135 mmol/L (136-145); Total Bilirubin 0.3 mg/dL (0.15-1.2); Total Protein 6.3 g/dL (6.6-8.7)
[2019-05-06 06:41] LABS: Slide Review Slide Review Perform
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
[2019-05-06] MEDS: sodium chloride 0.9% 1,000 ML 30 ML IV (12:11)
[2019-05-06] MEDS: EPINEPHrine 1 mg/mL INJ XX (13:30)
--- NOTE | 2019-05-06 14:27 | PM.OP ---
Operative Report Date of procedure: May 06, 2019 Pre-op Diagnosis: Lung cancer Post-op diagnosis: same Brief History: 63-year-old lady with concern for left upper lobe lung cancer. Procedure: Name of the procedure: Bronchoscopy with inspection of the airway, endobronchial and transbronchial biopsies, bronchoalveolar lavage and control of bleeding. Indication: Left upper lobe lung mass. Anesthesia: General anesthesia. Local anesthesia: 1% lidocaine instilled on the vocal cords, 3 mL, 1% lidocaine in the airway and brittany a total of 5 mL. Description of the procedure: The procedure was discussed in detail with the patient and the consent was obtained. The patient was brought to the OR. She was intubated for general anesthesia. A timeout was performed. The bronchoscope was advanced through the endotracheal tube. The lower trachea appeared normal. The brittany, right and left mainstem bronchus where anesthetized with 1% lidocaine. In a systematic way the bronchoscope was then advanced to bilateral lungs. The right mainstem bronchus was normal. The right upper lobe, right middle lobe and right lower lobe bronchi all appeared patent without any erythema or endobronchial lesion. The airway was examined up to third subsegmental level. The bronchoscope was then advanced into the left mainstem bronchus. The left mainstem bronchus was patent there is no significant erythema or endobronchial lesion. The left upper lobe bronchus appeared erythematous, there was significant mucosal and submucosal swelling of the airways leading to segmental bronchi involving the anterior and apical posterior segment. The bronchoscope could not be passed more than 1 subsegmental level there was also swelling at the entrance of the left lower lobe bronchus however this could be traversed by the bronchoscope and the segmental bronchi are patent. Endobronchial biopsies are obtained from the posterior segment of the left upper lobe. Bronchoalveolar lavage, Cytobrush are also performed from the same segment. Transbronchial biopsies were also performed from the same segment under fluoroscopy. Bronchoalveolar lavage was obtained from the posterior segment of the left upper lobe. A total of 60 mL of normal saline was instilled, the return was 22 mL. The return was bloody and there was no mucous plug. There was moderate bleeding following the performance of endobronchial biopsies which was controlled with cold saline and epinephrine given locally. Sample: 1. The endobronchial biopsies are sent for histopathology. 2. the transbronchial biopsies were sent for histopathology. 3. The Cytobrush was sent for cytology. 4. The bronchoalveolar lavage was sent for Gram stain culture, fungal stain and culture, AFB stain and culture, cytology. Complications: There was moderate bleeding which was controlled.
[2019-05-06] MEDS: lidocaine 1% INJ 50 mL INJECTION (14:45)
--- NOTE | 2019-05-06 15:08 | SUR.PHASEI ---
1330 PT TO ISOLATION ROOM COUGHING, GOOD RESP EFFORT PT SITTING UP IN BED KEEPS PULLING MASK OFF, SX USED FOR THICK BLOOD TINGED SPUTUM. DR PARIS AT BEDSIDE, ORDERS FOR ALBUTEROL NEB.
--- NOTE | 2019-05-06 15:13 | SUR.PHASEI ---
1345PT ALERT BUT ANGRY PULLING MASK OFF , PT REFUSED TO WEAR NC. SATS DOWN TO 88 WITH COUGHING FITS BUT BACK UP TO 88-96% WHEN NOT COUGHING PT WEARS MASK AT TIMES , OTHER TIMES IF COUGHNG REFUSES, PT COUGHING UP LARGE AMTSOF THICK CLEAR BLOOD TINGED SPUTUM, VSS 1410 DR PARIS AT BEDSIDE PT NOT COUGHING MUCH, RELAXED AND WEARING 6 LITER MASK SATS UP TO 97% NO OBLIZZIEU SITRESS
--- NOTE | 2019-05-06 15:16 | SUR.PHASEI ---
1430 REPORT CALLED TO FLOOR PT AWAKES EASILY WITH SOME COUGHING SATS 88% WHEN COUGHBNG AND MASK OFF, PT SATS 97% WITH MASK ON PT REFUSING TO WEAR N95 MASK FOR TRANSPORT TO FLOOR 1440 PT TO FLOOR WITH MASK IN PLACE PT MOVED TO BED WITH ASSIST OF 4 NURSES, VSS. PT ALERT AND YELLLING AT STAFF.
[2019-05-06] MEDS: morphine 4 mg/mL SDV 1 mL 2 MG IVP (15:34)
[2019-05-06 15:45] LABS: Basophils % 0.4 %; Eosinophils % 0.2 %; Hematocrit 29.5 % (37.0-47.0); Hemoglobin 8.7 g/dL (11.5-15.3); Lymphocytes # 0.3 10^3/uL (0.8-4.8); Lymphocytes % 3.2 %; Mean Corpuscular HGB Conc 29.5 g/dL (30.0-36.0); Mean Corpuscular Hemoglobin 21.8 pg (28.0-34.0); Mean Corpuscular Volume 73.8 fL (81-99); Monocytes # 0.4 10^3/uL (0.2-0.9); Monocytes % 4.2 %; Neutrophils # 7.7 10^3/uL (1.8-7.7); Neutrophils % 91.2 %; Nucleated Red Blood Cells % 0 %; Platelet Count 192 10^3/cmm (130-400); Red Cell Distribution Width 21.6 % (12.1-15.1); White Blood Count 8.5 10^3/uL (4.0-10.0)
[2019-05-06 15:59] LABS: Mean Platelet Volume 10.5 fL (7.4-10.4)
--- NOTE | 2019-05-06 17:01 | P.PN_ITS ---
Subjective Subjective: Interval history: Patient is a bit anxious this morning about having her bronchoscopy and transthoracic needle biopsy, understand risks and benefits, voiced understanding, agrees to proceed, no fevers no chills overnight, patient does state that it hurts all over and that she has increased sensitivity to pain Vitals/I&O/Wt Last Vital Signs Temp 99.0 F 05/06/19 15:32 Pulse 116 H 05/06/19 15:32 Resp 20 H 05/06/19 15:34 BP 136/74 05/06/19 15:32 Pulse Ox 96 05/06/19 15:32 05/06/19 05/06/19 05/06/19 06:59 14:59 22:59 Intake Total 0 / 1448 0 / 0 Output Total 475 / 925 5 / Balance -475 / 523 -5 / -5 Weight last 48 hrs Weight 67.676 kg Physical Exam Const: COMMON NORMALS: no apparent distress and oriented x3 HENMT: COMMON NORMALS: normocephalic HEAD & SCALP: normocephalic Neck/C-Spine: COMMON NORMALS: no JVD Resp: COMMON NORMALS: normal respiratory effort, no retractions, no use of accessory muscles and clear to auscultation bilaterally AUSCULTATION: clear t o auscultation bilaterally Cardio: COMMON NORMALS: no JVD, regular rate, regular rhythm, S1 normal heart sound and S2 normal heart sound RATE: regular rate RHYTHM: regular rhythm HEART SOUNDS: S1 normal and S2 normal GI: COMMON NORMALS: normal to inspection, nondistended, normoactive bowel sounds, soft to palpation, non-tender, no hepatosplenomegaly, no masses and no bruits PALPATION: Yes soft and Yes no hepatosplenomegaly Extremity: COMMON NORMALS: normal capillary refill, no clubbing, cyanosis or edema, no calf tenderness and no pedal edema Neuro: COMMON NORMALS: oriented x3 Psych: COMMON NORMALS: mental status grossly normal Data : 05/06/19 15:09 05/06/19 05:15 Micro: Microbiology 05/06/19 12:52 Gram Stain - Final Lung Left Upper Lobe 05/04/19 18:40 Gram Stain - Final Sputum - Expectorated Sputum Sputum Culture - Preliminary A&P Assessment and plan (1) Left upper lobe pneumonia: -Pro-Tigre 0.22, CRP 56.8 -Unlikely pneumonia, but will continue azithromycin and Rocephin -Follow blood cultures, respiratory cultures, AFB Status: Acute Code(s): J18.9 - Pneumonia, unspecified organism (2) Mass of left lung: This was identified as early as last January but she has been fearful of work-up and refused to thus far. She is currently willing to consider. 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 -Patient had in the past not elected to have treatment, wanted to try herbal treatments and alternative medicine -Patient is agreeable for bronchoscopy, as transthoracic needle biopsy if required, advised the risk and benefits, voiced understanding, all questions answered, agreed to proceed -Is quite teary and anxious about the prospect of the test, the prospect of possibly having cancer, but she states that she is in the hospital because she wants evaluation -She is a full code, her next of kin is Grace who is her neighbor numbers [phone], her son is Pascual, [phone], most of her family is in [place] -Patient states that she lives in [facility] -I have reviewed the images with Dr. Xavier, images look a lot like pulmonary malignancy, agreed for further evaluation hopefully on Monday Plan: -Hopefully will have a bronchoscopy and possible biopsy today -Ordered AFP, TB QuantiFERON to rule out TB Status: Chronic Code(s): R91.8 - Other nonspecific abnormal finding of lung field (3) Microcytic anemia: -has evidence of iron deficiency anemia, ferritin 39, iron 12, will provide IV replacement -Some component can be chronic disease related to malignancy -Monitor hemoglobin closely today Status: Acute Code(s): D50.9 - Iron deficiency anemia, unspecified (4) Bipolar 1 disorder: According to old psychiatric records here. Not on any medication by her choosing. She almost seems more schizophrenic or schizotypical in talking with her. Requires attention and effort and reassurance but generally cooperative despite her fears and preferences at the moment -Has had multiple inpatient admissions for bipolar disorder, has not been on any treatment for some time. Status: Chronic Code(s): F31.9 - Bipolar disorder, unspecified (5) Chronic hepatitis C virus genotype 1b infection: With at least some evidence of cirrhosis from this as evidenced by minimal transaminitis, some ascites fluid, splenomegaly. -CT scan shows evidence of splenomegaly and liver cirrhosis -We will require treatment for hepatitis C at some point, and further evaluation with manager pediatric or local physician Status: Chronic Code(s): B18.2 - Chronic viral hepatitis C (6) Protein calorie malnutrition: Status: Acute Qualifiers: Protein-calorie malnutrition severity: moderate Qualified Code(s): E44.0 - Moderate protein-calorie malnutrition Code(s): E46 - Unspecified protein-calorie malnutrition (7) Hypertrophic pulmonary osteoarthropathy: Presumptive diagnosis based on examination of hands and other clinical findings Status: Chronic Code(s): M89.40 - Other hypertrophic osteoarthropathy, unspecified site (8) Nicotine dependence, cigarettes, with other nicotine-induced disorders: Possibly in early remission Status: Chronic Code(s): F17.218 - Nicotine dependence, cigarettes, with other nicotine-induced disorders (9) Liver cirrhosis: -Patient has radiologic and blood evidence of liver cirrhosis, and portal hypertension likely secondary to chronic hepatitis C -Patient denies hemoptysis, denies episodes of confusion, denies blacking out -Patient will need a follow-up with manager pediatric for full evaluation of liver cirrhosis, and treatment for hepatitis C Status: Acute Code(s): K74.60 - Unspecified cirrhosis of liver Additional A&P Information GI prophylaxis with Protonix Lactobacillus Periodically monitor LFTs for change When taking p.o. supplements Nicotine patch as needed SCDs for DVT prophylaxis, no pharmacological prophylaxis secondary to current hemoptysis and anemia PT evaluation Full code currentl Attestations Medical Necessity Statement*: Patient requires hospitalization, for left upper lobe pneumonia, mass of left lung Coding Level of Care Code Acute Automation Qa Lead for Chg Fwd Diagnoses Left upper lobe pneumonia J18.9 Mass of left lung R91.8 Microcytic anemia D50.9 Bipolar 1 disorder F31.9 Chronic hepatitis C virus genotype 1b infection B18.2 Protein calorie malnutrition E44.0 Protein-calorie malnutrition severity: moderate Hypertrophic pulmonary osteoarthropathy M89.40 Nicotine dependence, cigarettes, with other nicotine-induced disorders F17.218 Liver cirrhosis K74.60
--- NOTE | 2019-05-06 17:03 | PC.NURSE ---
NURSE WAS MADE AWARE BY MOLD TOOLER THAT PATIENT WAS FOUND WITHOUT OXYMASK ON AND HYPOXIC. PATIENT WAS ALSO VERY DIAPHORETIC. VITALS OBTAINED AND ALL WERE WNL. BLOOD GLUCOSE LEVELS WERE NORMAL. WILL CONTINUE TO MONITOR.
[2019-05-06 17:04] LABS: Glucose Point of Care 108 mg/dL (70-110)
[2019-05-06] MEDS: lactobacillus 1 Tablet 1 TAB PO (17:54)
[2019-05-06] MEDS: cefTRIAXone 1,000 MG in sodium chloride 0.9% (plus) 50 ML 100 MG IV (21:35)
[2019-05-07] VITALS (16 sets, daily range): BP systolic 107–122; BP diastolic 49–69; PULSE 82–101; RESP 17–22; TEMP 36.4–36.9; O2SAT 85–99
[2019-05-07] MEDS: ipratropium-albuterol 3 mL Neb INHALATION ×5 (03:44→20:23)
--- NOTE | 2019-05-07 05:28 | PC.NURSE ---
Patient confused This nurse has found patient several times during the shift with her oxygen mask off along with telemetry. This nurse has educated patient on the importance of keeping oxygen and telemetry on. Patient was educated on the risks of not keeping oxygen on. Patient has also been getting out of bed. This nurse educated the patient on fall risk and the safety of calling for help to get out of bed.
[2019-05-07 05:49] LABS: Basophils % 0.1 %; Hematocrit 28.4 % (37.0-47.0); Hemoglobin 8.6 g/dL (11.5-15.3); Lymphocytes # 0.8 10^3/uL (0.8-4.8); Lymphocytes % 8.8 %; Mean Corpuscular HGB Conc 30.3 g/dL (30.0-36.0); Mean Corpuscular Hemoglobin 22.7 pg (28.0-34.0); Mean Corpuscular Volume 74.9 fL (81-99); Monocytes # 0.5 10^3/uL (0.2-0.9); Neutrophils # 7.6 10^3/uL (1.8-7.7); Neutrophils % 84.7 %; Nucleated Red Blood Cells % 0 %; Platelet Count 183 10^3/cmm (130-400); Red Blood Count 3.79 10^6/uL (4.1-5.3); Red Cell Distribution Width 21.5 % (12.1-15.1)
[2019-05-07 06:05] LABS: Alanine Aminotransferase 25 U/L (0-33); Albumin Level 1.8 g/dL (3.5-5.2); Alkaline Phosphatase 130 IU/L (35-105); Anion Gap 12.8 (5-19); Aspartate Amino Transferase 38 U/L (0-32); Blood Urea Nitrogen 13 mg/dL (8-23); Calcium 8.3 mg/dL (8.5-10.5); Carbon Dioxide 25 mmol/L (22-29); Chloride 101 mmol/L (98-107); Globulin 4.6 g/dL (1.3-4.6); Glomerular Filtration Rate 100.3 mL/min (90-130); Glucose 138 mg/dL (65-115); Potassium 3.8 mmol/L (3.5-5.1); Sodium 135 mmol/L (136-145); Total Bilirubin 0.3 mg/dL (0.15-1.2); Total Protein 6.4 g/dL (6.6-8.7)
[2019-05-07 07:06] LABS: Slide Review Slide Review Perform
--- NOTE | 2019-05-07 08:53 | XR_ITS ---
WS: [id number] XR chest 1V portable [id number] REASON FOR EXAM: left lung mass post bronchoscopy FINDINGS: Atelectasis effusion on the left side consistent with a neoplasm. The right lung is hyper a erated. The trachea is deviated slightly to the left side. XR/XR chest 1V portable [id number] IMPRESSION: Atelectasis effusion almost obliterating the left thoracic cavity.
[2019-05-07] MEDS: pantoprazole DR 40 mg Tablet PO (08:55)
[2019-05-07] MEDS: azithromycin 250 mg Tablet 500 MG PO (08:55)
[2019-05-07] MEDS: lactobacillus 1 Tablet 1 TAB PO ×2 (08:55→18:19)
[2019-05-07] MEDS: LORazepam 2 mg/mL INJ 1 mL 1 MG IVP ×2 (08:56→23:02)
[2019-05-07] MEDS: citalopram 20 mg Tablet PO (09:14)
--- NOTE | 2019-05-07 09:37 | P.PN_ITS ---
Subjective Subjective: Interval history: The patient seems to be doing much better today. She complains of chronic pain. The patient is resting comfortably in bed without any significant shortness of breath. Her saturation is 100% on 3 L oxygen given via facemask. She underwent a bronchoscopy yesterday. There is significant submucosal and mucosal swelling involving the left upper lobe also the entrance of the left lower lobe bronchus. Endobronchial, transbronchial biopsies were performed as well as Cytobrush and bronchoalveolar lavage. Medications: Reviewed: Yes Vitals/I&O/Wt Last Vital Signs Temp 97.5 F L 05/07/19 07:29 Pulse 84 05/07/19 07:36 Resp 18 05/07/19 07:36 BP 107/55 05/07/19 07:29 Pulse Ox 97 05/07/19 07:36 05/06/19 05/07/19 05/07/19 22:59 06:59 14:59 Intake Total 200 / 310 812 / 1122 Output Total 200 / 205 Balance 0 / 105 812 / 917 Weight last 48 hrs Weight 149 lb 3.2 oz Physical Exam Narrative: EXAM NARRATIVE: General: Patient is awake alert and oriented, in no acute distress. The patient is cachectic HEENT: Pupil bilateral symmetric, light and accommodation reflex present, extraocular muscle movement intact, no deformity of the nose, mildly congested nasal mucosa Neck: No JVD, no cervical or supraclavicular lymphadenopathy. Respiratory: Inspection: Barrel-shaped chest Palpation: Trachea is mildly deviated to the left, reduced expansion in the left hemithorax Percussion: Dullness to percussion over the left anterior thorax Auscultation: Bronchial breath sounds over the left anterior hemithorax, decreased vocal resonance, no wheezing or rhonchi Cardiovascular: Regular rate and rhythm, S1-S2 present, no murmur, no right ventricular heave, no peripheral edema. Abdomen: Soft, mild tenderness over the epigastric area, nondistended, positive bowel sound. No palpable organomegaly. Musculoskeletal: Clubbing involving all extremities Skin: Chronic skin changes in bilateral lower extremity Neuro: Mental status is normal, no gross cranial nerve deficit, normal motor and coordination. Data : 05/07/19 05:28 05/07/19 05:28 Micro: Microbiology 05/04/19 18:40 Gram Stain - Final Sputum - Expectorated Sputum Sputum Culture - Final 05/06/19 12:52 Gram Stain - Final Lung Left Upper Lobe Other data: Chest x-ray obtained this morning did not show any pneumothorax. There is a large masslike lesion in the left upper and midlung zone. There is no air bronchogram within this lesion. There is also volume loss on the left side and infiltrate in the left lower lung zone. A&P Assessment and plan (1) Mass of left lung: The patient underwent bronchoscopic evaluation yesterday. There was significant mucosal and submucosal involvement by an infiltrating mass in the left upper lobe. There is also involvement at the entrance of the left lower bronchus. Endobronchial and transbronchial biopsies were performed as well as Cytobrush and bronchoalveolar lavage. The initial microbiologic studies from the bronchoalveolar lavage were all negative. There is no significant purulent secretion that would be consistent with pneumonia. I do not believe this is TB and this is predominantly a lung malignancy. The patient had received adequate antibiotic coverage and she can be discharged home with oxygen as needed. Once I have the diagnosis, the patient is current need immediate consultation by the oncology team and possibly radiation to prevent complete collapse of the left lung. I will follow-up with histopathology. Unfortunately, the patient has a poor poor social economic situation. It is unclear to me whether the patient is able to follow through our suggestions because of her mental status as well as the psychiatric history. Status: Chronic Code(s): R91.8 - Other nonspecific abnormal finding of lung field Attestations Medical Necessity Statement*: Will defer to the primary team Coding Level of Care Code Acute Professional Sports Scout for [facility] Diagnoses Mass of left lung R91.8
--- NOTE | 2019-05-07 10:04 | PC.NURSE ---
the patient is refusing to put her o2 on. she is stating 82%. I reported this to the nurse and charge nurse.
[2019-05-07] MEDS: HYDROcodone-acetaminophen 5-325 mg Tablet 1 TAB PO ×2 (10:35→23:02)
--- NOTE | 2019-05-07 11:35 | PC.SOCIAL ---
IMM Updated Page 2 of IMM updated and given to patient. Initialed, dated, and timed and placed back in chart.
--- NOTE | 2019-05-07 13:24 | PC.OT ---
OT note: Attempted OT evaluation. Pt sleeping soundly. Will attempt again later as able.
--- NOTE | 2019-05-07 15:20 | PM.PN ---
Subjective Subjective: Interval history: This morning patient had episodes of agitation, with nursing staff, when I had entered the room, patient was calm, collective, answering questions appropriately, patient states that she has a history of bipolar disorder, but is taking herbal medications for it, is agreeable to try Celexa and alprazolam, patient oxygen saturations due decreased to the low 80s, but secondary to her taking off her oxygen mask, patient was advised of compliance, patient spoken to case workers about going to [facility] facility Vitals/I&O/Wt Last Vital Signs Temp 98.3 F 05/07/19 11:07 Pulse 88 05/07/19 15:15 Resp 18 05/07/19 15:15 BP 120/68 05/07/19 11:07 Pulse Ox 94 05/07/19 15:15 05/07/19 05/07/19 05/07/19 06:59 14:59 22:59 Intake Total 812 / 1122 360 / 360 Balance 812 / 917 360 / 360 Weight last 48 hrs Weight 67.676 kg Physical Exam Const: COMMON NORMALS: no apparent distress and oriented x3 HENMT: COMMON NORMALS: normocephalic HEAD & SCALP: normocephalic Neck/C-Spine: COMMON NORMALS: no JVD Resp: COMMON NORMALS: normal respiratory effort, no retractions, no use of accessory muscles and clear to auscultation bilaterally AUSCULTATION: clear to auscultation bilaterally Cardio: COMMON NORMALS: no JVD, regular rate, regular rhythm, S1 normal heart sound and S2 normal heart sound RATE: regular rate RHYTHM: regular rhythm HEART SOUNDS: S1 normal and S2 normal GI: COMMON NORMALS: normal to inspection, nondistended, normoactive bowel sounds, soft to palpation, non-tender, no hepatosplenomegaly, no masses and no bruits PALPATION: Yes soft and Yes no hepatosplenomegaly Extremity: COMMON NORMALS: normal capillary refill, no clubbing, cyanosis or edema, no calf tenderness and no pedal edema Neuro: COMMON NORMALS: oriented x3 Psych: COMMON NORMALS: mental status grossly normal, cooperative, denies hallucinations, denies homicidal ideation and denies suicidal ideation APPEARANCE: Yes unkempt ACTIVITY/MOTOR BEHAVIOR: Yes hyperactive and Yes disorganized SPEECH: Yes excessive MOOD & AFFECT: Yes elevated mood THOUGHT PROCESS: disorganized, flight of ideas, illogical, loose associations and racing thoughts Data : 05/07/19 05:28 05/07/19 05:28 Micro: Microbiology 05/06/19 12:52 Gram Stain - Final Lung Left Upper Lobe Bronchoalveolar Lavage Culture - Preliminary 05/04/19 18:40 Gram Stain - Final Sputum - Expectorated Sputum Sputum Culture - Final A&P Assessment and plan (1) Left upper lobe pneumonia: -Pro-Tigre 0.22, CRP 56.8 -Unlikely pneumonia, but will continue azithromycin and Rocephin -Follow blood cultures, respiratory cultures, AFB Status: Acute Code(s): J18.9 - Pneumonia, unspecified organism (2) Mass of left lung: This was identified as early as last January but she has been fearful of work-up and refused to thus far. She is currently willing to consider. I do not know that she will agree to care which might be recommended if this does turntable operator to be cancer. -Patient had in the past not elected to have treatment, wanted to try herbal treatments and alternative medicine -Patient is agreeable for bronchoscopy, as transthoracic needle biopsy if required, advised the risk and benefits, voiced understanding, all questions answered, agreed to proceed -Is quite teary and anxious about the prospect of the test, the prospect of possibly having cancer, but she states that she is in the hospital because she wants evaluation -She is a full code, her next of kin is Grace who is her neighbor numbers [phone], her son is Pascual, [phone], most of her family is in [place] -Patient states that she lives in [facility] -I have reviewed the images with Dr. Xavier, images look a lot like pulmonary malignancy -Status post bronchoscopic evaluation yesterday, endobronchial and transbronchial biopsies were performed with Cytobrush and bronchioloalveolar lavage by Dr. Xavier yesterday Plan: -Discontinue antibiotics as pneumonia is unlikely -AFB and QuantiFERON gold ordered, however TB is highly unlikely -This looks like pulmonary malignancy, is to follow-up with Dr. Xavier as outpatient for histopathology in 1 to 2 weeks - patient will be discharged on oxygen therapy -Patient is agreeable to go to senior living Status: Chronic Code(s): R91.8 - Other nonspecific abnormal finding of lung field (3) Microcytic anemia: -has evidence of iron deficiency anemia, ferritin 39, iron 12, will provide IV replacement -Some component can be chronic disease related to malignancy and cirrhosis Status: Acute Code(s): D50.9 - Iron deficiency anemia, unspecified (4) Bipolar 1 disorder: -Has had multiple inpatient admissions for bipolar disorder, has not been on any treatment for some time. ---- Agreeable to try Celexa and alprazolam -We will have Dr. Kasper come by and evaluate patient - Status: Chronic Code(s): F31.9 - Bipolar disorder, unspecified (5) Chronic hepatitis C virus genotype 1b infection: With at least some evidence of cirrhosis from this as evidenced by minimal transaminitis, some ascites fluid, splenomegaly. -CT scan shows evidence of splenomegaly and liver cirrhosis -We will require treatment for hepatitis C at some point, and she can follow-up with me in clinic for hepatitis C treatment Status: Chronic Code(s): B18.2 - Chronic viral hepatitis C (6) Protein calorie malnutrition: Status: Acute Qualifiers: Protein-calorie malnutrition severity: moderate Qualified Code(s): E44.0 - Moderate protein-calorie malnutrition Code(s): E46 - Unspecified protein-calorie malnutrition (7) Hypertrophic pulmonary osteoarthropathy: Presumptive diagnosis based on examination of hands and other clinical findings Status: Chronic Code(s): M89.40 - Other hypertrophic osteoarthropathy, unspecified site (8) Nicotine dependence, cigarettes, with other nicotine-induced disorders: Possibly in early remission Status: Chronic Code(s): F17.218 - Nicotine dependence, cigarettes, with other nicotine-induced disorders (9) Liver cirrhosis: -Patient has radiologic and blood evidence of liver cirrhosis, and portal hypertension likely secondary to chronic hepatitis C -Patient denies hemoptysis, denies episodes of confusion, denies blacking out -Patient will need a follow-up with electrician technician for full evaluation of liver cirrhosis, and treatment for hepatitis C Status: Acute Code(s): K74.60 - Unspecified cirrhosis of liver Additional A&P Information GI prophylaxis with Protonix Lactobacillus Periodically monitor LFTs for change When taking p.o. supplements Nicotine patch as needed SCDs for DVT prophylaxis, no pharmacological prophylaxis secondary to current hemoptysis and anemia PT evaluation Full code Attestations Medical Necessity Statement*: Patient requires hospitalization for lung mass, awaiting senior living placement Coding Level of Care Code Acute Trust Mail Clerk for Chg Fwd Diagnoses Left upper lobe pneumonia J18.9 Mass of left lung R91.8 Microcytic anemia D50.9 Bipolar 1 disorder F31.9 Chronic hepatitis C virus genotype 1b infection B18.2 Protein calorie malnutrition E44.0 Protein-calorie malnutrition severity: moderate Hypertrophic pulmonary osteoarthropathy M89.40 Nicotine dependence, cigarettes, with other nicotine-induced disorders F17.218 Liver cirrhosis K74.60
[2019-05-07] MEDS: acetaminophen 500 mg Tablet PO (18:30)
[2019-05-08] VITALS (14 sets, daily range): BP systolic 117–137; BP diastolic 62–74; PULSE 83–102; RESP 16–22; TEMP 36.4–37.4; O2SAT 86–96
[2019-05-08] MEDS: ipratropium-albuterol 3 mL Neb INHALATION ×4 (02:18→20:26)
[2019-05-08 03:56] LABS: Basophils % 0.3 %; Eosinophils # 0.1 10^3/uL (0.0-0.8); Eosinophils % 0.8 %; Hematocrit 30.1 % (37.0-47.0); Lymphocytes # 1.4 10^3/uL (0.8-4.8); Lymphocytes % 16.7 %; Mean Corpuscular HGB Conc 29.9 g/dL (30.0-36.0); Mean Corpuscular Hemoglobin 22.8 pg (28.0-34.0); Mean Corpuscular Volume 76.2 fL (81-99); Mean Platelet Volume 11.3 fL (7.4-10.4); Monocytes # 0.6 10^3/uL (0.2-0.9); Monocytes % 6.5 %; Neutrophils # 6.4 10^3/uL (1.8-7.7); Nucleated Red Blood Cells % 0.2 %; Platelet Count 225 10^3/cmm (130-400); Red Blood Count 3.95 10^6/uL (4.1-5.3); Red Cell Distribution Width 22.2 % (12.1-15.1); White Blood Count 8.6 10^3/uL (4.0-10.0)
[2019-05-08 04:08] LABS: Alanine Aminotransferase 24 U/L (0-33); Albumin Level 1.8 g/dL (3.5-5.2); Alkaline Phosphatase 124 IU/L (35-105); Aspartate Amino Transferase 42 U/L (0-32); Blood Urea Nitrogen 11 mg/dL (8-23); Calcium 8.2 mg/dL (8.5-10.5); Carbon Dioxide 27 mmol/L (22-29); Chloride 102 mmol/L (98-107); Globulin 4.7 g/dL (1.3-4.6); Glucose 105 mg/dL (65-115); Magnesium 1.9 mg/dL (1.7-2.3); Phosphorus 2.9 mg/dL (2.5-4.5); Sodium 136 mmol/L (136-145); Total Bilirubin 0.3 mg/dL (0.15-1.2); Total Protein 6.5 g/dL (6.6-8.7)
[2019-05-08 04:27] LABS: Slide Review Slide Review Perform
--- NOTE | 2019-05-08 07:52 | PC.NURSE ---
pt refuses to wear her nasal cannula
--- NOTE | 2019-05-08 07:59 | PC.NURSE ---
WHEN ENTERING THE PT ROOM THIS NURSE NOTICED THE PT CONTINUOUS PULSE OX WAS BEEPING DUE TO LOW OXYGEN SATURATION. PT OXYGEN SATURATION WAS AT [address] OXY[address] ON DUE TO IT BOTHERING HER. PT WAS INFORMED IMPORTANCE OF WEARING OXYGEN MASK AND KEEPING IT ON, PT STATED IT IRRITATED HER AND SHE NEEDS A SMALLER MASK, RT INFORMED.
[2019-05-08] MEDS: citalopram 20 mg Tablet PO (09:09)
[2019-05-08] MEDS: lactobacillus 1 Tablet 1 TAB PO ×2 (09:09→19:40)
[2019-05-08] MEDS: acetaminophen 500 mg Tablet PO ×2 (09:09→19:39)
[2019-05-08] MEDS: pantoprazole DR 40 mg Tablet PO (09:10)
--- NOTE | 2019-05-08 10:16 | PC.SOCIAL ---
Patient was given the [facility] Beneficiary Notification Letter. Signed and placed in chart.
--- NOTE | 2019-05-08 12:36 | PC.RESP ---
Patient given information on Smoking Cessation and a list of classes.
--- NOTE | 2019-05-08 13:02 | PM.PN ---
Subjective Subjective: Interval history: This morning patient was examined, her pathology came back positive for invasive adenocarcinoma of left lung mass, will set up a PET scan as outpatient, I spoke to Dr. Bradley about the case, he will see the patient as outpatient, patient is anxious about the options, but is open to chemotherapy versus immunotherapy, will be going to a senior care, is requiring up to 2 L of oxygen, has generalized aches and pains, no fevers no chills Vitals/I&O/Wt Last Vital Signs Temp 99.4 F 05/08/19 07:50 Pulse 101 H 05/08/19 11:49 Resp 20 H 05/08/19 11:49 BP 117/65 05/08/19 11:49 Pulse Ox 90 05/08/19 11:49 05/07/19 05/08/19 05/08/19 22:59 06:59 14:59 Intake Total 120 / 120 Output Total 250 / 250 Balance -250 / 220 120 / 120 Weight last 48 hrs Weight 65.969 kg Physical Exam Const: COMMON NORMALS: no apparent distress and oriented x3 HENMT: COMMON NORMALS: normocephalic HEAD & SCALP: normocephalic Neck/C-Spine: COMMON NORMALS: no JVD Resp: COMMON NORMALS: normal respiratory effort, no retractions, no use of accessory muscles and clear to auscultation bilaterally AUSCULTATION: clear to auscultation bilaterally Cardio: COMMON NORMALS: no JVD, regular rate, regular rhythm, S1 normal heart sound and S2 normal heart sound RATE: regular rate RHYTHM: regular rhythm HEART SOUNDS: S1 normal and S2 normal GI: COMMON NORMALS: normal to inspection, nondistended, normoactive bowel sounds, soft to palpation, non-tender, no hepatosplenomegaly, no masses and no bruits PALPATION: Yes soft and Yes no hepatosplenomegaly Extremity: COMMON NORMALS: normal capillary refill, no clubbing, cyanosis or edema, no calf tenderness and no pedal edema Neuro: COMMON NORMALS: oriented x3 Psych: COMMON NORMALS: mental status grossly normal Data : 05/08/19 03:35 05/08/19 03:35 Micro: Microbiology 05/06/19 12:52 Gram Stain - Final Lung Left Upper Lobe Bronchoalveolar Lavage Culture - Preliminary 05/02/19 18:00 Blood Culture - Final Blood NO GROWTH AFTER 5 DAYS 05/02/19 22:36 Blood Culture - Final Blood NO GROWTH AFTER 5 DAYS 05/06/19 12:52 Fungal Smear - Final Tissue 05/06/19 12:52 Mycobacterial Culture - Final Body Fluids - Bronchial 05/04/19 18:40 Gram Stain - Final Sputum - Expectorated Sputum Sputum Culture - Final A&P Assessment and plan (1) Left upper lobe pneumonia: -Pro-Tigre 0.22, CRP 56.8 -Unlikely pneumonia, but will continue azithromycin and Rocephin -Follow blood cultures, respiratory cultures, AFB Status: Acute Code(s): J18.9 - Pneumonia, unspecified organism (2) Mass of left lung: -Status post bronchoscopic evaluation yesterday, endobronchial and transbronchial biopsies were performed with Cytobrush and bronchioloalveolar lavage by Dr. Xavier yesterday -Left upper lung lobe endobronchial biopsy positive for Moderately differentiated invasive adenocarcinoma -Patient is agreeable to consider options of chemotherapy versus immunotherapy Plan: -Patient is to follow-up with Dr. Xavier in 1 week -Follow-up with Dr. Bradley in 1 to 2 weeks -We will order a PET scan to be done as outpatient - patient will be discharged on oxygen therapy -Patient is agreeable to go to senior care Status: Chronic Code(s): R91.8 - Other nonspecific abnormal finding of lung field (3) Microcytic anemia: -has evidence of iron deficiency anemia, ferritin 39, iron 12, will provide IV replacement -Some component can be chronic disease related to malignancy and cirrhosis Status: Acute Code(s): D50.9 - Iron deficiency anemia, unspecified (4) Bipolar 1 disorder: -Has had multiple inpatient admissions for bipolar disorder, has not been on any treatment for some time. -Agreeable to try Celexa and alprazolam -We will have Dr. Kasper come by and evaluate patient - Status: Chronic Code(s): F31.9 - Bipolar disorder, unspecified (5) Chronic hepatitis C virus genotype 1b infection: With at least some evidence of cirrhosis from this as evidenced by minimal transaminitis, some ascites fluid, splenomegaly. -CT scan shows evidence of splenomegaly and liver cirrhosis -We will require treatment for hepatitis C at some point, and she can follow-up with me in clinic for hepatitis C treatment Status: Chronic Code(s): B18.2 - Chronic viral hepatitis C (6) Protein calorie malnutrition: Status: Acute Qualifiers: Protein-calorie malnutrition severity: moderate Qualified Code(s): E44.0 - Moderate protein-calorie malnutrition Code(s): E46 - Unspecified protein-calorie malnutrition (7) Hypertrophic pulmonary osteoarthropathy: Presumptive diagnosis based on examination of hands and other clinical findings Status: Chronic Code(s): M89.40 - Other hypertrophic osteoarthropathy, unspecified site (8) Nicotine dependence, cigarettes, with other nicotine-induced disorders: Possibly in early remission Status: Chronic Code(s): F17.218 - Nicotine dependence, cigarettes, with other nicotine-induced disorders (9) Liver cirrhosis: -Patient has radiologic and blood evidence of liver cirrhosis, and portal hypertension likely secondary to chronic hepatitis C -Patient denies hemoptysis, denies episodes of confusion, denies blacking out -Patient will need a follow-up with crocheter hand or me for full evaluation of liver cirrhosis, and treatment for hepatitis C Status: Acute Code(s): K74.60 - Unspecified cirrhosis of liver Additional A&P Information GI prophylaxis with Protonix Lactobacillus Periodically monitor LFTs for change When taking p.o. 

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
[2019-05-08] MEDS: HYDROcodone-acetaminophen 5-325 mg Tablet 1 TAB PO (16:26)
--- NOTE | 2019-05-08 17:03 | P.PN_ITS ---
Subjective Subjective: Interval history: The patient was seen and examined today. She appears to be comfortable in no acute distress while resting. The endobronchial biopsy from the left upper lobe came back positive for moderately differentiated invasive adenocarcinoma. I have discussed this with the patient. Medications: Reviewed: Yes Vitals/I&O/Wt Last Vital Signs Temp 98.9 F 05/08/19 15:54 Pulse 92 05/08/19 15:54 Resp 19 H 05/08/19 15:54 BP 125/62 05/08/19 15:54 Pulse Ox 96 05/08/19 15:54 05/08/19 05/08/19 05/08/19 06:59 14:59 22:59 Intake Total 120 / 120 Balance 120 / 120 Weight last 48 hrs Weight 145 lb 7 oz Physical Exam Narrative: EXAM NARRATIVE: General: Patient is awake alert and oriented, in no acute distress. The patient is cachectic HEENT: Pupil bilateral symmetric, light and accommodation reflex present, extra ocular muscle movement intact, no deformity of the nose, mildly congested nasal mucosa Neck: No JVD, no cervical or supraclavicular lymphadenopathy. Respiratory: Inspection: Barrel-shaped chest Palpation: Trachea is mildly deviated to the left, reduced expansion in the left hemithorax Percussion: Dullness to percussion over the left anterior thorax Auscultation: Bronchial breath sounds over the left anterior hemithorax, decreased vocal resonance, no wheezing or rhonchi Cardiovascular: Regular rate and rhythm, S1-S2 present, no murmur, no right ventricular heave, no peripheral edema. Abdomen: Soft, mild tenderness over the epigastric area, nondistended, positive bowel sound. No palpable organomegaly. Musculoskeletal: Clubbing involving all extremities Skin: Chronic skin changes in bilateral lower extremity Neuro: Mental status is normal, no gross cranial nerve deficit, normal motor and coordination. Data : 05/08/19 03:35 05/08/19 03:35 Micro: Microbiology 05/06/19 12:52 Gram Stain - Final Lung Left Upper Lobe Bronchoalveolar Lavage Culture - Preliminary 05/02/19 18:00 Blood Culture - Final Blood NO GROWTH AFTER 5 DAYS 05/02/19 22:36 Blood Culture - Final Blood NO GROWTH AFTER 5 DAYS 05/06/19 12:52 Fungal Smear - Final Tissue 05/06/19 12:52 Mycobacterial Culture - Final Body Fluids - Bronchial Other data: I have reviewed the patient's laboratory, microbiologic and radiologic data. The chest x-ray from yesterday shows opacification of the most of of the left debra-thorax. A&P Assessment and plan (1) Mass of left lung: The patient has invasive moderately differentiated adenocarcinoma from left upper lobe lung biopsy. However during bronchoscopy the patient was noted to have significant mucosal and submucosal swelling involving the entrance of the left lower lobe. I believe the patient will benefit significantly from radiation as this airway is likely to get completely occluded which will make her respiratory status worse. The patient might easily develop postobstructive pneumonia. I have discussed the findings with the patient and the primary team. We will involve the oncology team for further management. I would be happy to follow-up with the patient as outpatient. Status: Chronic Code(s): R91.8 - Other nonspecific abnormal finding of lung field Attestations Medical Necessity Statement*: Defer to the primary team. Coding Level of Care Code Acute Professor/Nurse Anesthetist for [facility] [place] Diagnoses Mass of left lung R91.8
[2019-05-09] VITALS (13 sets, daily range): BP systolic 114–146; BP diastolic 61–75; PULSE 74–95; RESP 16–22; TEMP 36.4–36.9; O2SAT 90–96
--- NOTE | 2019-05-09 00:49 | PC.NURSE ---
pt requesting pain medication. this nurse educated pt that she did not have anything due at this. pt educated that this nurse would bring in medication when it was due, provided pt was still awake and in pain. pt was sleeping when this nurse returned.
[2019-05-09] MEDS: HYDROcodone-acetaminophen 5-325 mg Tablet 1 TAB PO ×2 (01:37→09:24)
[2019-05-09] MEDS: ipratropium-albuterol 3 mL Neb INHALATION ×3 (02:43→21:51)
[2019-05-09] MEDS: guaiFENesin 100 mg/5 mL UDC 10 mL 400 MG PO (02:43)
[2019-05-09] MEDS: acetaminophen 500 mg Tablet PO ×3 (05:46→22:23)
[2019-05-09 05:47] LABS: Basophils % 0.4 %; Eosinophils # 0.1 10^3/uL (0.0-0.8); Eosinophils % 0.7 %; Hematocrit 30.2 % (37.0-47.0); Hemoglobin 8.9 g/dL (11.5-15.3); Lymphocytes % 12.5 %; Mean Corpuscular HGB Conc 29.5 g/dL (30.0-36.0); Mean Corpuscular Hemoglobin 22.1 pg (28.0-34.0); Mean Corpuscular Volume 74.9 fL (81-99); Monocytes # 0.6 10^3/uL (0.2-0.9); Monocytes % 7.7 %; Neutrophils # 6.3 10^3/uL (1.8-7.7); Neutrophils % 78.2 %; Nucleated Red Blood Cells % 0.2 %; Platelet Count 230 10^3/cmm (130-400); Positive M 1; Red Blood Count 4.03 10^6/uL (4.1-5.3); Red Cell Distribution Width 23.4 % (12.1-15.1)
[2019-05-09 06:15] LABS: Alanine Aminotransferase 27 U/L (0-33); Albumin Level 1.9 g/dL (3.5-5.2); Alkaline Phosphatase 150 IU/L (35-105); Aspartate Amino Transferase 44 U/L (0-32); Blood Urea Nitrogen 11 mg/dL (8-23); Calcium 8.1 mg/dL (8.5-10.5); Carbon Dioxide 27 mmol/L (22-29); Chloride 100 mmol/L (98-107); Globulin 4.3 g/dL (1.3-4.6); Glomerular Filtration Rate 100.3 mL/min (90-130); Glucose 116 mg/dL (65-115); Magnesium 2.3 mg/dL (1.7-2.3); Phosphorus 3.3 mg/dL (2.5-4.5); Sodium 136 mmol/L (136-145); Total Bilirubin 0.3 mg/dL (0.15-1.2); Total Protein 6.2 g/dL (6.6-8.7)
[2019-05-09 06:58] LABS: Slide Review Slide Review Perform
[2019-05-09] MEDS: citalopram 20 mg Tablet PO (09:23)
[2019-05-09] MEDS: ALPRAZolam 0.25 mg Tablet 0.125 MG PO (09:23)
[2019-05-09] MEDS: lactobacillus 1 Tablet 1 TAB PO ×2 (09:23→18:15)
[2019-05-09] MEDS: pantoprazole DR 40 mg Tablet PO (09:23)
[2019-05-09] MEDS: polyethylene glycol 3350 Pkt 17 gm PO (09:25)
--- NOTE | 2019-05-09 12:08 | PC.CHAP ---
Pastoral Care Encounter/Spiritual Assessment Type of Contact [] Declined coverstitch elastic attacher visit [] Patient/Family/Request visit [] Outpatient visit [] Follow-up visit [] Physician referral [] Code/Alert [x] Routine visit [] Staff referral [] Actively dying [] Patient sleeping [] Family support [] [] Out of room [] Palliative care [] [] Receiving care in room [] Pre-surgical visit [] Trauma [] Long length of stay [] ICU visit [] Other: Relational/Emotional Strength [x] Patient feels connected with others/family/visitors/staff [] Distress [] Loneliness/isolation [] Abandonment Spirituality of Patient [x] Person of Camille [] Attends Mandaeism of their Camille [x] Believes in Prayer [] Reads Bible or Voodoo materials [] There are Spiritual issues to be addressed Pressure Testing Technician Interventions [x] Prayer [x] Active listening [x] Non-anxious presence [x] Spiritual/emotional support [] Crisis/trauma care [x] Spiritual counseling [] Bereavement support [] Provided bereavement packet [] Provided Bible/devotional materials [] Provided toy/stuffed animal, coloring book to patient or family member [] Provided Communion [] Anointing/Haslet [] Salvation [] Completed spiritual assessment [] Other: Impact on Illness or Injury [] Angry [] Fearful [x] Anxious [] Often cries [] Exhaustion [] Unable to work [] Unable to attend shinto [] Unable to walk/stand [] Unable to read [] Unable to drive [] Unable to eat/drink [] Unable to sleep [] Unable to be with family [] Patient intubated [] Other: Summary Patient expressed that she has lung cancer and requested prayer for healing. Time spent with patient 5 minutes
--- NOTE | 2019-05-09 12:36 | PC.SOCIAL ---
IMM Updated Updated pt on Pg 2 IMM. Provided pt a copy & left on pt's bedside table. No questions voiced. Signed, dated, & timed original in chart.
[2019-05-09] MEDS: ondansetron 2 mg/ML SDV 2 mL 4 MG IVP (14:33)
--- NOTE | 2019-05-09 17:05 | P.PN_ITS ---
Subjective Subjective: Interval history: Patient states that she feels weak this morning, tired, poor appetite, no fevers, no chills, pain is well controlled Vitals/I&O/Wt Last Vital Signs Temp 97.8 F 05/09/19 15:22 Pulse 74 05/09/19 15:22 Resp 16 05/09/19 15:22 BP 124/61 05/09/19 15:22 Pulse Ox 92 05/09/19 15:22 05/09/19 05/09/19 05/09/19 06:59 14:59 22:59 Intake Total 360 / 790 530 / 530 120 / 650 Balance 360 / 790 530 / 530 120 / 650 Weight last 48 hrs Weight 65.969 kg Physical Exam Const: COMMON NORMALS: no apparent distress and oriented x3 HENMT: COMMON NORMALS: normocephalic HEAD & SCALP: normocephalic Neck/C-Spine: COMMON NORMALS: no JVD Resp: COMMON NORMALS: normal respiratory effort, no retractions, no use of accessory muscles and clear to auscultation bilaterally AUSCULTATION: clear to auscultation bilaterally Cardio: COMMON NORMALS: no JVD, regular rate, regular rhythm, S1 normal heart sound and S2 normal heart sound RATE: regular rate RHYTHM: regular rhythm HEART SOUNDS: S1 normal and S2 normal GI: COMMON NORMALS: normal to inspection, nondistended, normoactive bowel sounds, soft to palpation, non-tender, no hepatosplenomegaly, no masses and no bruits PALPATION: Yes soft and Yes no hepatosplenomegaly Extremity: COMMON NORMALS: normal capillary refill, no clubbing, cyanosis or edema, no calf tenderness and no pedal edema Neuro: COMMON NORMALS: oriented x3 Psych: COMMON NORMALS: mental status grossly normal, cooperative, denies boone ucinations, denies homicidal ideation and denies suicidal ideation APPEARANCE: Yes unkempt ACTIVITY/MOTOR BEHAVIOR: Yes hyperactive and Yes disorganized SPEECH: Yes excessive MOOD & AFFECT: Yes elevated mood THOUGHT PROCESS: disorganized, flight of ideas, illogical, loose associations and racing thoughts Data : 05/09/19 05:22 05/09/19 05:22 Micro: Microbiology 05/06/19 12:52 Gram Stain - Final Lung Left Upper Lobe Bronchoalveolar Lavage Culture - Final A&P Assessment and plan (1) Left upper lobe pneumonia: -Pro-Tigre 0.22, CRP 56.8 -Unlikely pneumonia, but will continue azithromycin and Rocephin -Follow blood cultures, respiratory cultures, AFB Status: Acute Code(s): J18.9 - Pneumonia, unspecified organism (2) Mass of left lung: -Status post bronchoscopic evaluation yesterday, endobronchial and transbronchial biopsies were performed with Cytobrush and bronchioloalveolar lavage by Dr. Xaiver yesterday -Left upper lung lobe endobronchial biopsy positive for Moderately differentiated invasive adenocarcinoma -Patient is agreeable to consider options of chemotherapy versus immunotherapy Plan: -Patient is to follow-up with Dr. Xavier in 1 week -Follow-up with Dr. Bradley in 1 to 2 weeks and patient will need appointment with radiation therapy in 1 week -It is possible that patient might spend more than 1 week in the hospital due to prison placement, will see if specialist are willing to see her while she is in the hospital -We will order a PET scan to be done as outpatient - patient will be discharged on oxygen therapy -Patient is agreeable to go to prison Status: Chronic Code(s): R91.8 - Other nonspecific abnormal finding of lung field (3) Microcytic anemia: -has evidence of iron deficiency anemia, ferritin 39, iron 12, will provide IV replacement -Some component can be chronic disease related to malignancy and cirrhosis Status: Acute Code(s): D50.9 - Iron deficiency anemia, unspecified (4) Bipolar 1 disorder: -Has had multiple inpatient admissions for bipolar disorder, has not been on any treatment for some time. -Agreeable to try Celexa and alprazolam -We will have Dr. Kasper come by and evaluate patient - Status: Chronic Code(s): F31.9 - Bipolar disorder, unspecified (5) Chronic hepatitis C virus genotype 1b infection: With at least some evidence of cirrhosis from this as evidenced by minimal transaminitis, some ascites fluid, splenomegaly. -CT scan shows evidence of splenomegaly and liver cirrhosis -We will require treatment for hepatitis C at some point, and she can follow-up with me in clinic for hepatitis C treatment Status: Chronic Code(s): B18.2 - Chronic viral hepatitis C (6) Protein calorie malnutrition: Status: Acute Qualifiers: Protein-calorie malnutrition severity: moderate Qualified Code(s): E44.0 - Moderate protein-calorie malnutrition Code(s): E46 - Unspecified protein-calorie malnutrition (7) Hypertrophic pulmonary osteoarthropathy: Presumptive diagnosis based on examination of hands and other clinical findings Status: Chronic Code(s): M89.40 - Other hypertrophic osteoarthropathy, unspecified site (8) Nicotine dependence, cigarettes, with other nicotine-induced disorders: Possibly in early remission Status: Chronic Code(s): F17.218 - Nicotine dependence, cigarettes, with other nicotine-induced disorders (9) Liver cirrhosis: -Patient has radiologic and blood evidence of liver cirrhosis, and portal hypertension likely secondary to chronic hepatitis C -Patient denies hemoptysis, denies episodes of confusion, denies blacking out -Patient will need a follow-up with territory sales manager medical or me for full evaluation of liver cirrhosis, and treatment for hepatitis C Status: Acute Code(s): K74.60 - Unspecified cirrhosis of liver Additional A&P Information GI prophylaxis with Protonix Lactobacillus Periodically monitor LFTs for change When taking p.o. supplements Nicotine patch as needed SCDs for DVT prophylaxis, no pharmacological prophylaxis secondary to current hemoptysis and anemia PT evaluation Full code Attestations Medical Necessity Statement*: Patient requires hospitalization due to mass of left lung Coding Level of Care Code Acute Cash Poster for Chg Fwd Diagnoses Left upper lobe pneumonia J18.9 Mass of left lung R91.8 Microcytic anemia D50.9 Bipolar 1 disorder F31.9 Chronic hepatitis C virus genotype 1b infection B18.2 Protein calorie malnutrition E44.0 Protein-calorie malnutrition severity: moderate Hypertrophic pulmonary osteoarthropathy M89.40 Nicotine dependence, cigarettes, with other nicotine-induced disorders F17.218 Liver cirrhosis K74.60
[2019-05-10] VITALS (10 sets, daily range): BP systolic 113–144; BP diastolic 51–74; PULSE 74–89; RESP 16–22; TEMP 36.6–37.4; O2SAT 90–97
[2019-05-10] MEDS: HYDROcodone-acetaminophen 5-325 mg Tablet 1 TAB PO ×3 (01:57→15:56)
[2019-05-10] MEDS: ipratropium-albuterol 3 mL Neb INHALATION ×3 (02:24→21:16)
[2019-05-10 06:13] LABS: Basophils % 0.5 %; Eosinophils # 0.1 10^3/uL (0.0-0.8); Eosinophils % 0.6 %; Hematocrit 31.8 % (37.0-47.0); Hemoglobin 9.4 g/dL (11.5-15.3); Lymphocytes # 0.9 10^3/uL (0.8-4.8); Lymphocytes % 10.3 %; Mean Corpuscular HGB Conc 29.6 g/dL (30.0-36.0); Mean Corpuscular Hemoglobin 22.5 pg (28.0-34.0); Mean Corpuscular Volume 76.3 fL (81-99); Monocytes # 0.6 10^3/uL (0.2-0.9); Neutrophils # 6.7 10^3/uL (1.8-7.7); Neutrophils % 81.2 %; Nucleated Red Blood Cells % 0.2 %; Platelet Count 237 10^3/cmm (130-400); Red Blood Count 4.17 10^6/uL (4.1-5.3); Red Cell Distribution Width 24.6 % (12.1-15.1); White Blood Count 8.2 10^3/uL (4.0-10.0)
[2019-05-10 06:39] LABS: Slide Review Slide Review Perform
[2019-05-10 06:40] LABS: Alanine Aminotransferase 21 U/L (0-33); Albumin Level 1.7 g/dL (3.5-5.2); Alkaline Phosphatase 148 IU/L (35-105); Anion Gap 13.8 (5-19); Aspartate Amino Transferase 38 U/L (0-32); Blood Urea Nitrogen 8 mg/dL (8-23); Carbon Dioxide 26 mmol/L (22-29); Chloride 100 mmol/L (98-107); Creatinine Clr Calc Pharmacy 73.1159; Globulin 4.7 g/dL (1.3-4.6); Glucose 130 mg/dL (65-115); Potassium 3.8 mmol/L (3.5-5.1); Sodium 136 mmol/L (136-145); Total Bilirubin 0.3 mg/dL (0.15-1.2); Total Protein 6.4 g/dL (6.6-8.7)
[2019-05-10] MEDS: lactobacillus 1 Tablet 1 TAB PO ×2 (08:59→18:28)
[2019-05-10] MEDS: ALPRAZolam 0.25 mg Tablet 0.125 MG PO ×2 (09:00→21:30)
[2019-05-10] MEDS: pantoprazole DR 40 mg Tablet PO (09:01)
[2019-05-10] MEDS: citalopram 20 mg Tablet PO (09:01)
[2019-05-10] MEDS: guaiFENesin 100 mg/5 mL UDC 10 mL 400 MG PO (09:01)
--- NOTE | 2019-05-10 10:02 | MRR_ITS ---
PROCEDURE INFORMATION: Exam: MR Head Without Contrast Exam date and time: 05/10/2019 4:38 PM Age: 63 years old Clinical indication: Other: Lung cancer; Additional info: R/O intrancranial metastasis TECHNIQUE: Imaging protocol: MR of the head without contrast. COMPARISON: No relevant prior studies available. FINDINGS: Limitations: Study is significantly limited by patient motion. Brain: There is 1 cm sized area of focal edema in the medial aspect of the inferior left frontal lobe. There is no associated restricted diffusion and this finding could potentially represent small metastatic lesion. Further evaluation with contrast-enhanced MRI is necessary to evaluate for the presence of metastasis. There is also a tiny focus of cortical edema in the right temporal lobe which could potentially represent another metastatic focus. There is focal susceptibility artifact with hemosiderin deposition in the medial aspect of the right temporal lobe which is likely related to remote insult. There is no extra-axial fluid collection. Ventricles: Ventricles within normal limits of size. Bones/joints: Unremarkable. Soft tissues: Unremarkable. Sinuses: Normal as visualized. No acute sinusitis. Mastoid air cells: Normal as visualized. No mastoid effusion. Orbits: Unremarkable. MR/MR head wo con* [id number] IMPRESSION: 1. Limited exam due to patient motion. 2. Possible metastatic lesions are identified. Further evaluation with contrast-enhanced MRI is recommended.
--- NOTE | 2019-05-10 10:58 | PM.EVENT ---
Event Note Event Note: Testing 1234 Mrs. Evelyn Vila has lung cancer and she is really upset about it but she is going to open that time I finally got it to me to be seen, so much times to chemo and she will be okay and then regulation pretty good off the right and like this was the case to see likewise if I try to do my finger to go in there the cursor does not see
--- NOTE | 2019-05-10 18:31 | PM.PN ---
Subjective Subjective: Interval history: Patient has productive cough this morning, red-tinged sputum, no fevers, no chills, no nausea, no vomiting I advised patient that the goal today is to get up out of bed, ambulate, incentive spirometer use see what her oxygen requirements are , She is awaiting correction placement Vitals/I&O/Wt Last Vital Signs Temp 99.3 F 05/10/19 16:00 Pulse 87 05/10/19 16:00 Resp 16 05/10/19 16:00 BP 144/74 05/10/19 16:00 Pulse Ox 96 05/10/19 16:00 05/10/19 05/10/19 05/10/19 06:59 14:59 22:59 Intake Total 360 / 360 Balance 360 / 360 Weight last 48 hrs Weight 65.856 kg Physical Exam Const: COMMON NORMALS: no apparent distress and oriented x3 HENMT: COMMON NORMALS: normocephalic HEAD & SCALP: normocephalic Neck/C-Spine: COMMON NORMALS: no JVD Resp: COMMON NORMALS: normal respiratory effort, no retractions, no use of accessory muscles and clear to auscultation bilaterally AUSCULTATION: clear to auscultation bilaterally Cardio: COMMON NORMALS: no JVD, regular rate, regular rhythm, S1 normal heart sound and S2 normal heart sound RATE: regular rate RHYTHM: regular rhythm HEART SOUNDS: S1 normal and S2 normal GI: COMMON NORMALS: normal to inspection, nondistended, normoactive bowel sounds, soft to palpation, non-tender, no hepatosplenomegaly, no masses and no bruits PALPATION: Yes soft and Yes no hepatosplenomegaly Extremity: COMMON NORMALS: normal capillary refill, no clubbing, cyanosis or edema, no calf tenderness and no pedal edema Neuro: COMMON NORMALS: oriented x3 Data : 05/10/19 05:36 05/10/19 05:36 Micro: Microbiology 05/10/19 15:25 Occult Blood (FIT) - Final Stool - Stool Aspirate 05/06/19 12:52 Fungal Smear - Preliminary Tissue A&P Assessment and plan (1) Left upper lobe pneumonia: -Pro-Tigre 0.22, CRP 56.8 -Unlikely pneumonia, antibiotics has been stopped -Cultures so far have been unremarkable -Patient continues to have productive cough yellow red-tinged sputum -Given patient's left upper lobe mass, she has a high risk of postobstructive pneumonia, will continue to monitor Status: Acute Code(s): J18.9 - Pneumonia, unspecified organism (2) Mass of left lung: -Status post bronchoscopic evaluation yesterday, endobronchial and transbronchial biopsies were performed with Cytobrush and bronchioloalveolar lavage by Dr. Xavier yesterday -Left upper lung lobe endobronchial biopsy positive for Moderately differentiated invasive adenocarcinoma -Patient is agreeable to consider options of chemotherapy versus immunotherapy Plan: -Patient is to follow-up with Dr. Xavier in 1 week -Will obtain MRI today -Follow-up with Dr. Bradley in 1 to 2 weeks and patient will need appointment with radiation therapy in 1 week as she has a high risk of collapse of left upper lung and postobstructive pneumonia -It is possible that patient might spend more than 1 week in the hospital due to correction placement, will see if specialist are willing to see her while she is in the hospital -We will order a PET scan to be done as outpatient - patient will be discharged on oxygen therapy -Patient is agreeable to go to correction, awaiting correction placement Status: Chronic Code(s): R91.8 - Other nonspecific abnormal finding of lung field (3) Microcytic anemia: -has evidence of iron deficiency anemia, ferritin 39, iron 12, will provide IV replacement -Some component can be chronic disease related to malignancy and cirrhosis Status: Acute Code(s): D50.9 - Iron deficiency anemia, unspecified (4) Bipolar 1 disorder: -Has had multiple inpatient admissions for bipolar disorder, has not been on any treatment for some time. -Agreeable to try Celexa and alprazolam -We will have Dr. Kasper come by and evaluate patient - Status: Chronic Code(s): F31.9 - Bipolar disorder, unspecified (5) Chronic hepatitis C virus genotype 1b infection: With at least some evidence of cirrhosis from this as evidenced by minimal transaminitis, some ascites fluid, splenomegaly. -CT scan shows evidence of splenomegaly and liver cirrhosis -We will require treatment for hepatitis C at some point, and she can follow-up with me in clinic for hepatitis C treatment Status: Chronic Code(s): B18.2 - Chronic viral hepatitis C (6) Protein calorie malnutrition: Status: Acute Qualifiers: Protein-calorie malnutrition severity: moderate Qualified Code(s): E44.0 - Moderate protein-calorie malnutrition Code(s): E46 - Unspecified protein-calorie malnutrition (7) Hypertrophic pulmonary osteoarthropathy: Presumptive diagnosis based on examination of hands and other clinical findings Status: Chronic Code(s): M89.40 - Other hypertrophic osteoarthropathy, unspecified site (8) Nicotine dependence, cigarettes, with other nicotine-induced disorders: Possibly in early remission Status: Chronic Code(s): F17.218 - Nicotine dependence, cigarettes, with other nicotine-induced disorders (9) Liver cirrhosis: -Patient has radiologic and blood evidence of liver cirrhosis, and portal hypertension likely secondary to chronic hepatitis C -Patient denies hemoptysis, denies episodes of confusion, denies blacking out -Patient will need a follow-up with art teacher or me for full evaluation of liver cirrhosis, and treatment for hepatitis C Status: Acute Code(s): K74.60 - Unspecified cirrhosis of liver Additional A&P Information GI prophylaxis with Protonix Lactobacillus Periodically monitor LFTs for change When taking p.o. supplements Nicotine patch as needed SCDs for DVT prophylaxis, no pharmacological prophylaxis secondary to current hemoptysis and anemia PT evaluation Full code Attestations Medical Necessity Statement*: Patient is awaiting correction placement, with a left upper lung cancer Coding Level of Care Code Acute Mergers And Acquisitions Banker for g Fwd Diagnoses Left upper lobe pneumonia J18.9 Mass of left lung R91.8 Microcytic anemia D50.9 Bipolar 1 disorder F31.9 Chronic hepatitis C virus genotype 1b infection B18.2 Protein calorie malnutrition E44.0 Protein-calorie malnutrition severity: moderate Hypertrophic pulmonary osteoarthropathy M89.40 Nicotine dependence, cigarettes, with other nicotine-induced disorders F17.218 Liver cirrhosis K74.60
[2019-05-10] MEDS: acetaminophen 500 mg Tablet PO (21:29)
[2019-05-11] VITALS (13 sets, daily range): BP systolic 118–134; BP diastolic 60–68; PULSE 74–95; RESP 17–24; TEMP 36.6–37.2; O2SAT 93–97
[2019-05-11] MEDS: HYDROcodone-acetaminophen 5-325 mg Tablet 1 TAB PO ×4 (01:47→19:21)
[2019-05-11] MEDS: ipratropium-albuterol 3 mL Neb INHALATION ×4 (04:27→20:23)
[2019-05-11] MEDS: acetaminophen 500 mg Tablet PO (05:51)
--- NOTE | 2019-05-11 07:00 | XR_ITS ---
WS: [id number] XR chest 1V portable [id number] REASON FOR EXAM: sob FINDINGS: Fullness in the left hilum atelectasis and shift of the mediastinum to the left and some in crease in pleural effusion since earlier exam. The right lung is normal. The heart is normal in size shows arteriosclerotic changes. XR/XR chest 1V portable [id number] IMPRESSION: Suspect neoplasm left lung with atelectasis effusion and fullness in the hilum.
[2019-05-11] MEDS: polyethylene glycol 3350 Pkt 17 gm PO (09:58)
[2019-05-11] MEDS: lactobacillus 1 Tablet 1 TAB PO ×2 (09:58→17:30)
[2019-05-11] MEDS: pantoprazole DR 40 mg Tablet PO (09:58)
[2019-05-11] MEDS: citalopram 20 mg Tablet PO (09:59)
[2019-05-11] MEDS: LORazepam 2 mg/mL INJ 1 mL 1 MG IVP (15:09)
[2019-05-11] MEDS: ondansetron 2 mg/ML SDV 2 mL 4 MG IVP (15:10)
[2019-05-11] MEDS: levoFLOXacin 750 mg Tablet PO (15:11)
--- NOTE | 2019-05-11 16:33 | P.PN_ITS ---
Subjective Subjective: Interval history: Patient states that she feels weak this morning, has a poor appetite, continues to have a productive cough, yellow blood-tinged sputum, feels fatigued, feels weak MRI performed yesterday showed a intracranial lesion concerning metastatic lesion, patient was advised of this, patient states that she still wants to pursue treatment for her lung cancer and brain metastasis. I spoke to patient's son and patient about difficulty in terms of skilled nursing placement, unfortunately it might be an eventuality that she will have to be discharged home with home health care, however patient will not have significant help at home, patient wants to pursue treatment, patient does not want to pursue hospice at this time. We are working on skilled nursing placement for the patient. Vitals/I&O/Wt Last Vital Signs Temp 98.6 F 05/11/19 11:58 Pulse 88 05/11/19 14:49 Resp 18 05/11/19 14:49 BP 124/61 05/11/19 11:58 Pulse Ox 93 05/11/19 14:49 05/11/19 05/11/19 05/11/19 06:59 14:59 22:59 Intake Total 120 / 820 480 / 480 Balance 120 / 820 480 / 480 Weight last 48 hrs Weight 65.856 kg Physical Exam Const: COMMON NORMALS: no apparent distress and oriented x3 HENMT: COMMON NORMALS: normocephalic HEAD & SCALP: normocephalic Neck/C-Spine: COMMON NORMALS: no JVD Resp: COMMON NORMALS: normal respiratory effort, no retractions, no use of accessory muscles and clear to auscultation bilaterally AUSCULTATION: clear to auscultation bilaterally Cardio: COMMON NORMALS: no JVD, regular rate, regular rhythm, S1 normal heart sound and S2 normal heart sound RATE: regular rate RHYTHM: regular rhythm HEART SOUNDS: S1 normal and S2 normal GI: COMMON NORMALS: normal to inspection, nondistended, normoactive bowel sounds, soft to palpation, non-tender, no hepatosplenomegaly, no masses and no bruits PALPATION: Yes soft and Yes no hepatosplenomegaly Extremity: COMMON NORMALS: normal capillary refill, no clubbing, cyanosis or edema, no calf tenderness and no pedal edema Neuro: COMMON NORMALS: oriented x3 Psych: COMMON NORMALS: mental status grossly normal Data : 05/10/19 05:36 05/10/19 05:36 Micro: Microbiology 05/10/19 15:25 Occult Blood (FIT) - Final Stool - Stool Aspirate 05/06/19 12:52 Fungal Smear - Preliminary Tissue A&P Assessment and plan (1) Left upper lobe pneumonia: -Patient continues to have productive cough yellow red-tinged sputum -Given patient's left upper lobe mass, she has a high risk of postobstructive pneumoni:, will start the patient on Levaquin 750 mg once daily, due to concerns of worsening cough, productive yellow sputum, still requiring 4 L of oxygen, likely patient is developing a postobstructive pneumonia Status: Acute Code(s): J18.9 - Pneumonia, unspecified organism (2) Mass of left lung: -Status post bronchoscopic evaluation yesterday, endobronchial and transbronchial biopsies were performed with Cytobrush and bronchioloalveolar lavage by Dr. Xavier yesterday -Left upper lung lobe endobronchial biopsy positive for Moderately differentiated invasive adenocarcinoma -Patient is agreeable to consider options of chemotherapy versus immunotherapy -MRI of the brain showed a 1 cm size area of focal edema in the medial aspect of the inferior left frontal lobe, concerning for metastatic lesion, but there was a lot of motion artifact -Patient is adamant about pursuing treatment -We are having difficulty in terms of skilled nursing placement, unfortunately it might be the eventuality that she will have to be discharged home with home health care as this might be the only option Plan: -Patient is to follow-up with Dr. Xavier in 1 week -Follow-up with Dr. Bradley in 1 to 2 weeks and patient will need appointment with radiation therapy in 1 week as she has a high risk of collapse of left upper lung and postobstructive pneumonia -We will order a PET scan to be done as outpatient - patient will be discharged on oxygen therapy -Patient is agreeable to go to skilled nursing, awaiting skilled nursing placement -Is on Roundup 07/06/2024 every 4 hours for pain -Is on Ativan 1 mg every 8 as needed for anxiety Status: Chronic Code(s): R91.8 - Other nonspecific abnormal finding of lung field (3) Microcytic anemia: -has evidence of iron deficiency anemia, ferritin 39, iron 12, will provide IV replacement -Some component can be chronic disease related to malignancy and cirrhosis Status: Acute Code(s): D50.9 - Iron deficiency anemia, unspecified (4) Bipolar 1 disorder: -Has had multiple inpatient admissions for bipolar disorder, has not been on any treatment for some time. -Agreeable to try Celexa and alprazolam -We will have Dr. Kasper come by and evaluate patient -Is on Celexa Status: Chronic Code(s): F31.9 - Bipolar disorder, unspecified (5) Chronic hepatitis C virus genotype 1b infection: With at least some evidence of cirrhosis from this as evidenced by minimal transaminitis, some ascites fluid, splenomegaly. -CT scan shows evidence of splenomegaly and liver cirrhosis -We will require treatment for hepatitis C at some point, and she can follow-up with me in clinic for hepatitis C treatment Status: Chronic Code(s): B18.2 - Chronic viral hepatitis C (6) Protein calorie malnutrition: Status: Acute Qualifiers: Protein-calorie malnutrition severity: moderate Qualified Code(s): E44.0 - Moderate protein-calorie malnutrition Code(s): E46 - Unspecified protein-calorie malnutrition (7) Hypertrophic pulmonary osteoarthropathy: Presumptive diagnosis based on examination of hands and other clinical findings Status: Chronic Code(s): M89.40 - Other hypertrophic osteoarthropathy, unspecified site (8) Nicotine dependence, cigarettes, with other nicotine-induced disorders: Possibly in early remission Status: Chronic Code(s): F17.218 - Nicotine dependence, cigarettes, with other nicotine-induced disorders (9) Liver cirrhosis: -Patient has radiologic and blood evidence of liver cirrhosis, and portal hypertension likely secondary to chronic hepatitis C -Patient denies hemoptysis, denies episodes of confusion, denies blacking out -Patient will need a follow-up with circuit breaker assembler or me for full evaluation of liver cirrhosis, and treatment for hepatitis C Status: Acute Code(s): K74.60 - Unspecified cirrhosis of liver Additional A&P Information GI prophylaxis with Protonix Lactobacillus Periodically monitor LFTs for change When taking p.o. supplements Nicotine patch as needed SCDs for DVT prophylaxis, no pharmacological prophylaxis secondary to current hemoptysis and anemia PT evaluation Full code Attestations Medical Necessity Statement*: Cards continued hospitalization, awaiting skilled nursing placement, mass of left lung, with possible metastasis to the brain, left upper lobe postobstructive pneumonia Coding Level of Care Code Acute Box Truck Owner Operator for Chg Fwd Diagnoses Left upper lobe pneumonia J18.9 Mass of left lung R91.8 Microcytic anemia D50.9 Bipolar 1 disorder F31.9 Chronic hepatitis C virus genotype 1b infection B18.2 Protein calorie malnutrition E44.0 Protein-calorie malnutrition severity: moderate Hypertrophic pulmonary osteoarthropathy M89.40 Nicotine dependence, cigarettes, with other nicotine-induced disorders F17.218 Liver cirrhosis K74.60
[2019-05-12] VITALS (15 sets, daily range): BP systolic 103–136; BP diastolic 54–78; PULSE 70–94; RESP 16–24; TEMP 36.4–37; O2SAT 90–97
[2019-05-12] MEDS: HYDROcodone-acetaminophen 5-325 mg Tablet 1 TAB PO ×6 (00:06→21:49)
[2019-05-12] MEDS: ipratropium-albuterol 3 mL Neb INHALATION ×4 (03:27→23:35)
[2019-05-12 08:00] LABS: Basophils % 0.5 %; Eosinophils # 0.1 10^3/uL (0.0-0.8); Eosinophils % 0.8 %; Hematocrit 34.9 % (37.0-47.0); Hemoglobin 10.2 g/dL (11.5-15.3); Lymphocytes # 0.9 10^3/uL (0.8-4.8); Lymphocytes % 14.2 %; Mean Corpuscular HGB Conc 29.2 g/dL (30.0-36.0); Mean Corpuscular Hemoglobin 23.9 pg (28.0-34.0); Mean Corpuscular Volume 81.7 fL (81-99); Mean Platelet Volume 11.4 fL (7.4-10.4); Monocytes # 0.5 10^3/uL (0.2-0.9); Monocytes % 7.4 %; Neutrophils # 4.9 10^3/uL (1.8-7.7); Neutrophils % 76.5 %; Nucleated Red Blood Cells % 0 %; Platelet Count 204 10^3/cmm (130-400); Red Blood Count 4.27 10^6/uL (4.1-5.3); Red Cell Distribution Width 26.5 % (12.1-15.1); White Blood Count 6.3 10^3/uL (4.0-10.0)
[2019-05-12 08:10] LABS: Phosphorus 2.2 mg/dL (2.5-4.5)
[2019-05-12 08:11] LABS: Alanine Aminotransferase 20 U/L (0-33); Albumin Level 1.7 g/dL (3.5-5.2); Alkaline Phosphatase 154 IU/L (35-105); Aspartate Amino Transferase 36 U/L (0-32); Blood Urea Nitrogen 9 mg/dL (8-23); Calcium 8.1 mg/dL (8.5-10.5); Carbon Dioxide 28 mmol/L (22-29); Chloride 100 mmol/L (98-107); Creatinine Clr Calc Pharmacy 73.1159; Globulin 4.9 g/dL (1.3-4.6); Glucose 174 mg/dL (65-115); Sodium 135 mmol/L (136-145); Total Bilirubin 0.3 mg/dL (0.15-1.2); Total Protein 6.6 g/dL (6.6-8.7)
[2019-05-12] MEDS: guaiFENesin 100 mg/5 mL UDC 10 mL 400 MG PO (08:15)
[2019-05-12] MEDS: polyethylene glycol 3350 Pkt 17 gm PO (08:16)
[2019-05-12] MEDS: ondansetron 2 mg/ML SDV 2 mL 4 MG IVP (08:17)
[2019-05-12] MEDS: LORazepam 2 mg/mL INJ 1 mL 1 MG IVP (08:18)
[2019-05-12] MEDS: pantoprazole DR 40 mg Tablet PO (08:19)
[2019-05-12] MEDS: lactobacillus 1 Tablet 1 TAB PO ×2 (08:19→17:33)
[2019-05-12] MEDS: citalopram 20 mg Tablet PO (08:19)
[2019-05-12] MEDS: levoFLOXacin 750 mg Tablet PO (08:20)
--- NOTE | 2019-05-12 10:52 | PM.NPN ---
Subjective NPU Subjective: Interval history: The patient presents today very resistant to interview. When I arrived, she was in a coughing fit, and I assisted her to get a straw and get some of her Sprite to help settle herself down, but she was really not in the frame of mind to have a conversation. We talked a little bit about her son. We talked about her current situation. She reported she did not remember this keno writer / runner from our contact a few days earlier, but it is unclear whether she actually did not remember me or was so frustrated with my presence, that she did not want to acknowledge knowing me. We discussed her current situation and her recent refusal of an MRI. She reports that she is upset about the MRI overall because she says that people did not explain to her what was going to happen. She was for whatever reason under the impression it was going to be an open MRI and she reports that she got there and she was tied down, and she is claustrophobic and that she did not like it the first time and that she refuses to do it again like that. She reports that if it was an open MRI, she would do it, but she is not doing a closed MRI again and being tied down and having her claustrophobia triggered. We discussed the fact that they are using the MRI to get a real sense of what is going on with the possible brain metastases which she was clear that that was the case, but she reports that she does not care that she is not doing an MRI like that again. I discussed with her that I was there to kind of get a sense of her ability to make medical decisions and that our desire is always to have a person maintain their autonomy, but we are trying to figure out if she has the capacity to make those decisions versus having to defer to her son since she is no longer and she was not receptive to that information. She continued to be very irritable and was upset suggesting that I was trying to coerce her into getting the MRI, which I never in our session suggested she should or should not do anything. I was merely questioning her motive for not doing it. In the attempt to get a sense of her capacity, her irritability, and resistance in a conversation complicated our ability to really determine if she fully understood her condition, if she was functioning from a rationale decision making position versus just responding to her innate resistance to being told what to do or not liking being out of control. Mental Status Exam MSE Comments: This is a slender, white female, looking slightly older than her stated age with limited dress, grooming, and eye contact. No abnormal movements except for psychomotor agitation. Limited cooperation with exam in mild distress. Speech was decreased rate and volume. Mood described as irritated; affect congruent. Thought process, organized. Thought content: patient denied any suicidal or homicidal ideation, there were no delusions reported or noted, patient denied any auditory or visual hallucinations. Attention, concentration, appeared intact but were not formally tested. Memory mostly reliable. Alert and oriented times three. Insight and judgment limited. Impulse control limited. Vitals/I&O/Wt Last Vital Signs Temperature 98.2, pulse 90, respirations 17, pulse ox 92%, blood pressure 136/78. 05/12/19 05/13/19 05/13/19 22:59 06:59 14:59 Intake Total 610 / 610 300 / 910 240 / 240 Output Total 1000 / 1000 Balance 610 / 610 -700 / -90 240 / 240 Weight last 48 hrs Weight 67.086 kg Data NPU : 05/12/19 07:35 05/12/19 07:35 Micro: Microbiology 05/10/19 11:00 Mycobacterial Culture - Preliminary Sputum - Expectorated Sputum Microbiology 05/10/19 11:00 Sputum - Expectorated Sputum Mycobacterial Culture - Preliminary A&P Additional A&P Information The patient continues not to demonstrate symptoms consistent with active bipolar disorder illness. She seems to continue to display Cluster A pathology and this likely complicates her ability to interact with people and make clinical decisions. Tried to work with her to get a full clarity on whether she has clear understanding of her condition, has the ability to communicate her choice of treatment, her appreciation of the different aspects of her illness and its options, and ability to weigh the risks and benefits to come to a rationale conclusion. It seems that at some level her resistance to social conformity, and her resistance to societal norms may challenge her to even have a conversation that allows a discussion of the risks, benefits and alternatives. She is very driven by doing things the way she wants to do them without consideration of things, which puts her ability to make informed consent in a somewhat orellana area, as it does seem that she understands her condition, at least in the ability to say that she has lung cancer and that she may have metastasis; however at one point when I asked her if they needed to get another MRI to determine that what they were doing was fruitful and that her blocking would make it so that they could not make a clear determination of what they should be doing, her response was simply she did not like the way the MRI was done and so she is not doing it again. She never said that if they needed to do this, I could consider this. Her resistance was so strong that she could not formulate or even entertain the idea that there would be a situation where she would have to accept a situation that was less than desirable to get an outcome that was more desirable. Though she did identify that she would take an open MRI, but that is not an option. In her ability to really weigh anything was compromised. We are reaching out to son, now that I have his number, in an attempt to see if there is any additional history which might allow us to have a better sense of her psychiatric functioning and her overall mental health. Please feel free to consult additionally if needed. Attestations NPU Medical Necessity Statement*: N/A. Please refer to the attending physician for hospitalization necessity. Coding Level of Care Code Acute It Architecture Consultant for Tee Ryan
[2019-05-12] MEDS: acetaminophen 500 mg Tablet PO ×2 (15:47→21:11)
--- NOTE | 2019-05-12 16:31 | P.PN_ITS ---
Subjective Subjective: Interval history: Evelyn reports she is doing okay. She denied any nausea or headache to me today. History and physical reviewed. Medications: Reviewed: Yes Vitals/I&O/Wt Last Vital Signs Temp 97.6 F 05/12/19 15:46 Pulse 84 05/12/19 15:46 Resp 24 H 05/12/19 15:46 BP 125/69 05/12/19 15:46 Pulse Ox 96 05/12/19 15:46 Physical Exam Narrative: EXAM NARRATIVE: General exam no apparent distress Cardiovascular regular rate and rhythm Lungs diminished breath sounds bilaterally left greater than right Abdomen is soft, positive bowel sounds Extremities no cyanosis clubbing or edema Data : 05/12/19 07:35 05/12/19 07:35 Micro: Microbiology 05/10/19 11:00 Mycobacterial Culture - Preliminary Sputum - Expectorated Sputum A&P Assessment and plan (1) Left upper lobe pneumonia: Change antibiotics to vancomycin, Zosyn. Her oxygen requirement is i ncreasing. Very likely postobstructive pneumonia. Sputum culture Check MRSA PCR Radiation oncology consultation, oncology consultation tomorrow. I am not for sure if she is a candidate for treatment considering concerns with her mental health. Status: Acute Code(s): J18.9 - Pneumonia, unspecified organism (2) Mass of left lung: Status post bronchoscopy. Positive for moderately differentiated invasive adenocarcinoma Further work-up, including MRI of the brain demonstrated possible 1 cm focal edema, possible metastatic disease. MRI with contrast is needed however the patient currently is refusing another MRI at this time. As this is unknown currently, and she is not having neurologic symptoms that are new that I can determine, and no seizures have occurred I have held off on placing her on Keppra or Decadron. There are significant concerns that this patient will not be able to care for herself at home during this illness. Discharge planning is working on alternatives. Will need a PET scan as an outpatient if she is wanting to undergo treatment Status: Chronic Code(s): R91.8 - Other nonspecific abnormal finding of lung field (3) Microcytic anemia: Iron deficiency has been identified. She received IV iron replacement Status: Acute Code(s): D50.9 - Iron deficiency anemia, unspecified (4) Bipolar 1 disorder: Psychiatry is following. Celexa and alprazolam has been initiated. Status: Chronic Code(s): F31.9 - Bipolar disorder, unspecified (5) Chronic hepatitis C virus genotype 1b infection: Imaging consistent with some degree of cirrhosis. Hepatitis C has not yet been treated. Status: Chronic Code(s): B18.2 - Chronic viral hepatitis C (6) Protein calorie malnutrition: Status: Acute Qualifiers: Protein-calorie malnutrition severity: moderate Qualified Code(s): E44.0 - Moderate protein-calorie malnutrition Code(s): E46 - Unspecified protein-calorie malnutrition (7) Hypertrophic pulmonary osteoarthropathy: Presumptive diagnosis based on examination of hands and other clinical findings Status: Chronic Code(s): M89.40 - Other hypertrophic osteoarthropathy, unspecified site (8) Nicotine dependence, cigarettes, with other nicotine-induced disorders: Counseled Status: Chronic Code(s): F17.218 - Nicotine dependence, cigarettes, with other nicotine-induced disorders (9) Liver cirrhosis: Consider follow-up for treatment of hepatitis C Status: Acute Code(s): K74.60 - Unspecified cirrhosis of liver Additional A&P Information SCDs for DVT prophylaxis, no pharmacological prophylaxis secondary to current hemoptysis and anemia Full code Attestations Medical Necessity Statement*: Needs continued hospitalization, for evaluation of lung cancer with possible need for radiation. Coding Level of Care Code Acute Testing Projects Administrator for Chg Fwd Diagnoses Left upper lobe pneumonia J18.9 Mass of left lung R91.8 Microcytic anemia D50.9 Bipolar 1 disorder F31.9 Chronic hepatitis C virus genotype 1b infection B18.2 Protein calorie malnutrition E44.0 Protein-calorie malnutrition severity: moderate Hypertrophic pulmonary osteoarthropathy M89.40 Nicotine dependence, cigarettes, with other nicotine-induced disorders F17.218 Liver cirrhosis K74.60
[2019-05-12] MEDS: vancomycin 1,000 MG in sodium chloride 0.9% 250 ML 250 MG IV (17:36)
[2019-05-12] MEDS: budesonide 0.5 mg/2 mL Neb INHALATION (19:57)
[2019-05-12] MEDS: piperacillin-tazobactam 3.375 GM in sodium chloride 0.9% (plus) 50 ML IV (21:11)
[2019-05-13] VITALS (17 sets, daily range): BP systolic 116–139; BP diastolic 61–74; PULSE 70–82; RESP 16–32; TEMP 36.5–37.1; O2SAT 90–99
--- NOTE | 2019-05-13 | CT_ITS ---
Radiation Therapy Planning CT images; total exam DLP: 565.31 mGy-cm MTDD
[2019-05-13] MEDS: HYDROcodone-acetaminophen 5-325 mg Tablet 1 TAB PO ×5 (02:01→20:58)
[2019-05-13] MEDS: ipratropium-albuterol 3 mL Neb INHALATION ×5 (03:31→23:42)
[2019-05-13] MEDS: piperacillin-tazobactam 3.375 GM in sodium chloride 0.9% (plus) 50 ML IV ×3 (04:45→19:40)
[2019-05-13] MEDS: vancomycin 1,000 MG in sodium chloride 0.9% 250 ML 250 MG IV ×2 (06:00→18:27)
[2019-05-13] MEDS: budesonide 0.5 mg/2 mL Neb INHALATION ×2 (08:36→20:02)
--- NOTE | 2019-05-13 09:45 | PC.SOCIAL ---
IMM Updated IMM updated and given to patient. Initialed, dated, and timed and placed in chart.
[2019-05-13] MEDS: dexamethasone 4 mg Tablet PO ×2 (10:02→18:27)
[2019-05-13] MEDS: lactobacillus 1 Tablet 1 TAB PO ×2 (10:03→18:27)
[2019-05-13] MEDS: citalopram 20 mg Tablet PO (10:03)
[2019-05-13] MEDS: pantoprazole DR 40 mg Tablet PO (10:03)
--- NOTE | 2019-05-13 11:00 | PC.CHAP ---
Pastoral Care Encounter/Spiritual Assessment Type of Contact [] Declined manager cardiology visit [] Patient/Family/Request visit [] Outpatient visit [x] Follow-up visit [] Physician referral [] Code/Alert [x] Routine visit [] Staff referral [] Actively dying [] Patient sleeping [] Family support [] [] Out of room [] Palliative care [] [] Receiving care in room [] Pre-surgical visit [] Trauma [x] Long length of stay [] ICU visit [x] Other: May not have long to live Relational/Emotional Strength [x] Patient feels connected with others/family/visitors/staff [] Distress [] Loneliness/isolation [] Abandonment Spirituality of Patient [] Person of Camille [] Attends Denominational of their Camille [x] Believes in Prayer [] Reads Bible or Rastafari materials [] There are Spiritual issues to be addressed Railroad Signal And Switch Operator Interventions [x] Prayer [x] Active listening [x] Non-anxious presence [] Spiritual/emotional support [] Crisis/trauma care [x] Spiritual counseling [] Bereavement support [] Provided bereavement packet [] Provided Bible/devotional materials [] Provided toy/stuffed animal, coloring book to patient or family member [] Provided Communion [] Anointing/[place] [] Salvation [x] Completed spiritual assessment [] Other: Impact on Illness or Injury [] Angry [] Fearful [] Anxious [] Often cries [] Exhaustion [] Unable to work [] Unable to attend uatsdin [] Unable to walk/stand [] Unable to read [] Unable to drive [] Unable to eat/drink [] Unable to sleep [] Unable to be with family [] Patient intubated [x] Other: Pt feels she does not have too much longer to live and is giving up. Summary Pt complains of pain over entire body. Pt has gone thru one dMRI and Dr wants her to have another but pt states she is claustrophobic and is very reluctant to go thru another one. Pt stated Dr is talking about rediation treatments but she is not sure she wants to do it and just sooner. Railroad Signal And Switch Operator discussed salvation and eternity with pt. Pt states she is ok with outcome. Railroad Signal And Switch Operator Willa Hwang Time spent with patient 20 minutes
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
--- NOTE | 2019-05-13 15:08 | P.PN_ITS ---
Subjective Subjective: Interval history: Evelyn reports she is doing okay currently on oxygen. She refuses to have another MRI of her brain done. She denies any dizziness or headache currently. Medications: Reviewed: Yes Vitals/I&O/Wt Last Vital Signs Temp 98.7 F 05/13/19 11:07 Pulse 77 05/13/19 11:22 Resp 18 05/13/19 11:18 BP 130/62 05/13/19 11:07 Pulse Ox 94 05/13/19 11:18 05/13/19 05/13/19 05/13/19 06:59 14:59 22:59 Intake Total 300 / 910 730 / 730 Output Total 1000 / 1000 Balance -700 / -90 730 / 730 Weight last 48 hrs Weight 67.086 kg Physical Exam Narrative: EXAM NARRATIVE: General exam no apparent distress Cardiovascular regular rate and rhythm Lungs diminished breath sounds bilaterally left greater than right Abdomen is soft, positive bowel sounds Extremities no cyanosis clubbing or edema Data : 05/12/19 07:35 05/12/19 07:35 Micro: Microbiology 05/12/19 17:45 MRSA Culture - Final Nose A&P Assessment and plan (1) Left upper lobe pneumonia: Currently on vancomycin, Zosyn Very likely postobstructive pneumonia. Sputum culture MRSA PCR negative. Consider discontinuing vancomycin if hypoxia improving. Will consider doing this tomorrow. Radiation oncology consultation today. Status: Acute Code(s): J18.9 - Pneumonia, unspecified organism (2) Mass of left lung: Status post bronchoscopy. Positive for moderately differentiated invasive adenocarcinoma Further work-up, including MRI of the brain demonstrated possible 1 cm focal edema, possible metastatic disease. MRI with contrast is needed however the patient currently is refusing another MRI at this time. As this is unknown currently, and she is not having neurologic symptoms that are new that I can determine, and no seizures have occurred. I will place her on dexamethasone 4 mg twice daily secondary to concern for edema on her MRI. There are significant concerns that this patient will not be able to care for herself at home during this illness. Discharge planning is working on alternatives. Will need a PET scan as an outpatient if she is wanting to undergo treatment Status: Chronic Code(s): R91.8 - Other nonspecific abnormal finding of lung field (3) Microcytic anemia: Iron deficiency has been identified. She received IV iron replacement Stool Hemoccult negative Status: Acute Code(s): D50.9 - Iron deficiency anemia, unspecified (4) Bipolar 1 disorder: Psychiatry is following. Celexa and alprazolam has been initiated. Status: Chronic Code(s): F31.9 - Bipolar disorder, unspecified (5) Chronic hepatitis C virus genotype 1b infection: Imaging consistent with some degree of cirrhosis. Hepatitis C has not yet been treated. Status: Chronic Code(s): B18.2 - Chronic viral hepatitis C (6) Protein calorie malnutrition: Status: Acute Qualifiers: Protein-calorie malnutrition severity: moderate Qualified Code(s): E44.0 - Moderate protein-calorie malnutrition Code(s): E46 - Unspecified protein-calorie malnutrition (7) Hypertrophic pulmonary osteoarthropathy: Presumptive diagnosis based on examination of hands and other clinical findings Status: Chronic Code(s): M89.40 - Other hypertrophic osteoarthropathy, unspecified site (8) Nicotine dependence, cigarettes, with other nicotine-induced disorders: Counseled Status: Chronic Code(s): F17.218 - Nicotine dependence, cigarettes, with other nicotine-induced disorders (9) Liver cirrhosis: Consider follow-up for treatment of hepatitis C Status: Acute Code(s): K74.60 - Unspecified cirrhosis of liver Additional A&P Information SCDs for DVT prophylaxis, no pharmacological prophylaxis secondary to current hemoptysis and anemia Full code Attestations Medical Necessity Statement*: Needs continued hospitalization for IV antibiotics secondary to postobstructive pneumonia, evaluation by radiation o ncology Coding Level of Care Code Acute Environmental Service Aide for [facility] Fwd Diagnoses Left upper lobe pneumonia J18.9 Mass of left lung R91.8 Microcytic anemia D50.9 Bipolar 1 disorder F31.9 Chronic hepatitis C virus genotype 1b infection B18.2 Protein calorie malnutrition E44.0 Protein-calorie malnutrition severity: moderate Hypertrophic pulmonary osteoarthropathy M89.40 Nicotine dependence, cigarettes, with other nicotine-induced disorders F17.218 Liver cirrhosis K74.60
[2019-05-13 18:18] LABS: Vancomycin Trough 9.7 ug/mL (10-15)
[2019-05-14] VITALS (15 sets, daily range): BP systolic 108–141; BP diastolic 57–82; PULSE 69–96; RESP 18–24; TEMP 36.5–36.8; O2SAT 90–100
[2019-05-14] MEDS: HYDROcodone-acetaminophen 5-325 mg Tablet 1 TAB PO ×5 (01:57→22:28)
[2019-05-14] MEDS: ipratropium-albuterol 3 mL Neb INHALATION ×5 (03:50→23:29)
[2019-05-14] MEDS: acetaminophen 500 mg Tablet PO ×2 (04:07→21:00)
[2019-05-14] MEDS: vancomycin 1,000 MG in sodium chloride 0.9% 250 ML 250 MG IV (04:47)
[2019-05-14] MEDS: piperacillin-tazobactam 3.375 GM in sodium chloride 0.9% (plus) 50 ML IV (05:21)
[2019-05-14 06:09] LABS: Hematocrit 36.2 % (37.0-47.0); Hemoglobin 10.6 g/dL (11.5-15.3); Lymphocytes # 0.4 10^3/uL (0.8-4.8); Lymphocytes % 6.4 %; Mean Corpuscular HGB Conc 29.3 g/dL (30.0-36.0); Mean Corpuscular Hemoglobin 23.2 pg (28.0-34.0); Mean Corpuscular Volume 79.4 fL (81-99); Monocytes # 0.3 10^3/uL (0.2-0.9); Monocytes % 4.4 %; Neutrophils # 5.6 10^3/uL (1.8-7.7); Neutrophils % 88.6 %; Nucleated Red Blood Cells % 0 %; Platelet Count 200 10^3/cmm (130-400); Red Blood Count 4.56 10^6/uL (4.1-5.3); Red Cell Distribution Width 27.1 % (12.1-15.1); White Blood Count 6.4 10^3/uL (4.0-10.0)
[2019-05-14 06:19] LABS: Anion Gap 13.8 (5-19); Blood Urea Nitrogen 11 mg/dL (8-23); Calcium 8.3 mg/dL (8.5-10.5); Carbon Dioxide 25 mmol/L (22-29); Chloride 99 mmol/L (98-107); Glomerular Filtration Rate 100.3 mL/min (90-130); Glucose 239 mg/dL (65-115); Osmolality Calculated 282 mOsm/kg (285-295); Potassium 3.8 mmol/L (3.5-5.1); Sodium 134 mmol/L (136-145)
[2019-05-14 06:30] LABS: Add RBC Morph No
[2019-05-14 06:31] LABS: Slide Review Slide Review Perform
[2019-05-14] MEDS: budesonide 0.5 mg/2 mL Neb INHALATION ×2 (08:06→19:41)
[2019-05-14] MEDS: lactobacillus 1 Tablet 1 TAB PO ×2 (08:53→17:53)
[2019-05-14] MEDS: pantoprazole DR 40 mg Tablet PO (08:53)
[2019-05-14] MEDS: citalopram 20 mg Tablet PO (08:53)
[2019-05-14] MEDS: dexamethasone 4 mg Tablet PO ×2 (08:55→17:53)
[2019-05-14 09:57] LABS: PD-L1 (Clone 22C3) by IHC BBPL See Report
--- NOTE | 2019-05-14 11:40 | US_ITS ---
WS: [id number] INDICATION: Pleural effusion TECHNIQUE: Ultrasound left chest FINDINGS: Moderate left pleural effusion US/US chest [id number] IMPRESSION: Moderate left pleural effusion
--- NOTE | 2019-05-14 13:05 | P.PN_ITS ---
Subjective Subjective: Interval history: Evelyn reports she is doing okay. She is to have her first radiation treatment today. Medications: Reviewed: Yes Vitals/I&O/Wt Last Vital Signs Temp 98.0 F 05/14/19 11:04 Pulse 85 05/14/19 12:25 Resp 20 H 05/14/19 12:17 BP 115/57 05/14/19 11:04 Pulse Ox 96 05/14/19 12:17 05/13/19 05/14/19 05/14/19 22:59 06:59 14:59 Intake Total 960 / 1940 290 / 2230 180 / 180 Output Total 0 / 0 Balance 960 / 1940 290 / 2230 180 / 180 Weight last 48 hrs Weight 67.086 kg Physical Exam Narrative: EXAM NARRATIVE: General exam no apparent distress Cardiovascular regular rate and rhythm Lungs diminished breath sounds bilaterally left greater than right Abdomen is soft, positive bowel sounds Extremities no cyanosis clubbing or edema Data : 05/14/19 05:35 05/14/19 05:35 Micro: Microbiology 05/13/19 11:33 Gram Stain - Final Sputum - Expectorated Sputum Sputum Culture - Preliminary 05/12/19 17:45 MRSA Culture - Final Nose A&P Assessment and plan (1) Left upper lobe pneumonia: Currently on vancomycin, Zosyn Very likely postobstructive pneumonia. Sputum culture MRSA PCR negative. Discontinue vancomycin today. Continue Zosyn. Appreciate radiology oncology consultation Check chest ultrasound to make sure no significant pleural effusion. Previous CT scan demonstrated small Status: Acute Code(s): J18.9 - Pneumonia, unspecified organism (2) Mass of left lung: Status post bronchoscopy. Positive for moderately differentiated invasive adenocarcinoma Further work-up, including MRI of the brain demonstrated possible 1 cm focal edema, possible metastatic disease. MRI with contrast is needed however the patient currently is refusing another MRI at this time. As this is unknown currently, and she is not having neurologic symptoms that are new that I can determine, and no seizures have occurred. I have placed her on dexamethasone 4 mg twice daily secondary to concern for edema on her MRI. There are significant concerns that this patient will not be able to care for herself at home during this illness. Discharge planning is working on alternatives. Will need a PET scan as an outpatient if she is wanting to undergo treatment Status: Chronic Code(s): R91.8 - Other nonspecific abnormal finding of lung field (3) Microcytic anemia: Iron deficiency has been identified. She received IV iron replacement Stool Hemoccult negative Status: Acute Code(s): D50.9 - Iron deficiency anemia, unspecified (4) Bipolar 1 disorder: Psychiatry is following. Celexa and alprazolam has been initiated. Status: Chronic Code(s): F31.9 - Bipolar disorder, unspecified (5) Chronic hepatitis C virus genotype 1b infection: Imaging consistent with some degree of cirrhosis. Hepatitis C has not yet been treated. Status: Chronic Code(s): B18.2 - Chronic viral hepatitis C (6) Protein calorie malnutrition: Status: Acute Qualifiers: Protein-calorie malnutrition severity: moderate Qualified Code(s): E44.0 - Moderate protein-calorie malnutrition Code(s): E46 - Unspecified protein-calorie malnutrition (7) Hypertrophic pulmonary osteoarthropathy: Presumptive diagnosis based on examination of hands and other clinical findings Status: Chronic Code(s): M89.40 - Other hypertrophic osteoarthropathy, unspecified site (8) Nicotine dependence, cigarettes, with other nicotine-induced disorders: Counseled Status: Chronic Code(s): F17.218 - Nicotine dependence, cigarettes, with other nicotine-induced disorders (9) Liver cirrhosis: Consider follow-up for treatment of hepatitis C Status: Acute Code(s): K74.60 - Unspecified cirrhosis of liver Additional A&P Information Hyperglycemia. This may have worsened secondary to dexamethasone. Mild sliding scale insulin currently. SCDs for DVT prophylaxis, no pharmacological prophylaxis secondary to current hemoptysis and anemia Full code Attestations Medical Necessity Statement*: Needs continued hospitalization for IV antibiotics secondary to pneumonia. Coding Level of Care Code Acute Regional Program Manager for [facility] Fwd Diagnoses Left upper lobe pneumonia J18.9 Mass of left lung R91.8 Microcytic anemia D50.9 Bipolar 1 disorder F31.9 Chronic hepatitis C virus genotype 1b infection B18.2 Protein calorie malnutrition E44.0 Protein-calorie malnutrition severity: moderate Hypertrophic pulmonary osteoarthropathy M89.40 Nicotine dependence, cigarettes, with other nicotine-induced disorders F17.218 Liver cirrhosis K74.60
[2019-05-14 17:14] LABS: Glucose Point of Care 237 mg/dL (70-110)
[2019-05-15] VITALS (18 sets, daily range): BP systolic 133–176; BP diastolic 63–81; PULSE 69–89; RESP 18–24; TEMP 36.6–36.8; O2SAT 85–97
[2019-05-15 00:07] LABS: Glucose Point of Care 164 mg/dL (70-110)
[2019-05-15] MEDS: HYDROcodone-acetaminophen 5-325 mg Tablet 1 TAB PO ×5 (02:20→22:30)
[2019-05-15] MEDS: ipratropium-albuterol 3 mL Neb INHALATION ×6 (03:16→23:59)
[2019-05-15] MEDS: acetaminophen 500 mg Tablet PO (04:51)
[2019-05-15 07:32] LABS: Glucose Point of Care 120 mg/dL (70-110)
[2019-05-15] MEDS: budesonide 0.5 mg/2 mL Neb INHALATION ×2 (07:32→21:01)
[2019-05-15] MEDS: pantoprazole DR 40 mg Tablet PO (08:51)
[2019-05-15] MEDS: lactobacillus 1 Tablet 1 TAB PO ×2 (08:51→17:44)
[2019-05-15] MEDS: citalopram 20 mg Tablet PO (08:51)
[2019-05-15] MEDS: dexamethasone 4 mg Tablet PO ×2 (08:54→17:44)
--- NOTE | 2019-05-15 11:50 | PC.SOCIAL ---
IMM Updated IMM Updated and given to patient. Initialed, dated, and timed and placed back in chart.
--- NOTE | 2019-05-15 12:31 | P.PN_ITS ---
Subjective Subjective: Interval history: Evelyn reports she is doing okay. She reports no issues with radiation treatments. Her left pleural effusion. Medications: Reviewed: Yes Vitals/I&O/Wt Last Vital Signs Temp 98 F 05/15/19 11:46 Pulse 86 05/15/19 11:46 Resp 18 05/15/19 11:46 BP 149/73 05/15/19 11:46 Pulse Ox 97 05/15/19 11:46 05/14/19 05/15/19 05/15/19 22:59 06:59 14:59 Intake Total 290 / 470 170 / 640 Output Total 0 / 0 0 / 0 Balance 290 / 470 170 / 640 Weight last 48 hrs Weight 66.361 kg Physical Exam Narrative: EXAM NARRATIVE: General exam no apparent distress Cardiovascular regular rate and rhythm Lungs diminished breath sounds bilaterally left greater than right Abdomen is soft, positive bowel sounds Extremities no cyanosis clubbing or edema Data : 05/14/19 05:35 05/14/19 05:35 Micro: Microbiology 05/13/19 11:33 Gram Stain - Final Sputum - Expectorated Sputum Sputum Culture - Final 05/06/19 12:52 Fungal Smear - Preliminary Tissue A&P Assessment and plan (1) Left upper lobe pneumonia: Currently on vancomycin, Zosyn Very likely postobstructive pneumonia. Sputum culture MRSA PCR negative. Continue Zosyn Appreciate radiology oncology consultation Ultrasound demonstrated significant pleural effusion. I discussed with the patient [place] drain, thoracentesis. She reported she did not want any therapy such as this as it might cause a medical complication. She was able to relate the potential complications of the procedure after I explained the to her. I explained this could cause and/or disability not removing the pleural f luid. She was able to relate understanding of that as well. Status: Acute Code(s): J18.9 - Pneumonia, unspecified organism (2) Mass of left lung: Status post bronchoscopy. Positive for moderately differentiated invasive adenocarcinoma Further work-up, including MRI of the brain demonstrated possible 1 cm focal edema, possible metastatic disease. MRI with contrast is needed however the patient currently is refusing another MRI at this time. As this is unknown cur rently, and she is not having neurologic symptoms that are new that I can determine, and no seizures have occurred. I have placed her on dexamethasone 4 mg twice daily secondary to concern for edema on her MRI. There are significant concerns that this patient will not be able to care for herself at home during this illness. Discharge planning is working on alternatives. I discussed with her the potential of chemotherapy. She related to me today that she may not want this. I will review again with her daily. Will need a PET scan as an outpatient if she is wanting to undergo treatment Status: Chronic Code(s): R91.8 - Other nonspecific abnormal finding of lung field (3) Microcytic anemia: Iron deficiency has been identified. She received IV iron replacement Stool Hemoccult negative Status: Acute Code(s): D50.9 - Iron deficiency anemia, unspecified (4) Bipolar 1 disorder: Psychiatry is following. Celexa and alprazolam has been initiated. Status: Chronic Code(s): F31.9 - Bipolar disorder, unspecified (5) Chronic hepatitis C virus genotype 1b infection: Imaging consistent with some degree of cirrhosis. Hepatitis C has not yet been treated. Status: Chronic Code(s): B18.2 - Chronic viral hepatitis C (6) Protein calorie malnutrition: Status: Acute Qualifiers: Protein-calorie malnutrition severity: moderate Qualified Code(s): E44.0 - Moderate protein-calorie malnutrition Code(s): E46 - Unspecified protein-calorie malnutrition (7) Hypertrophic pulmonary osteoarthropathy: Presumptive diagnosis based on examination of hands and other clinical findings Status: Chronic Code(s): M89.40 - Other hypertrophic osteoarthropathy, unspecified site (8) Nicotine dependence, cigarettes, with other nicotine-induced disorders: Counseled Status: Chronic Code(s): F17.218 - Nicotine dependence, cigarettes, with other nicotine-induced disorders (9) Liver cirrhosis: Consider follow-up for treatment of hepatitis C Status: Acute Code(s): K74.60 - Unspecified cirrhosis of liver Additional A&P Information Hyperglycemia. This may have worsened secondary to dexamethasone. Mild sliding scale insulin currently. SCDs for DVT prophylaxis, no pharmacological prophylaxis secondary to current hemoptysis and anemia Full code Attestations Medical Necessity Statement*: Needs continued hospitalization for IV antibiotics secondary to pneumonia. Coding Level of Care Code Acute Automation Test Engineer for Chg Fwd Diagnoses Left upper lobe pneumonia J18.9 Mass of left lung R91.8 Microcytic anemia D50.9 Bipolar 1 disorder F31.9 Chronic hepatitis C virus genotype 1b infection B18.2 Protein calorie malnutrition E44.0 Protein-calorie malnutrition severity: moderate Hypertrophic pulmonary osteoarthropathy M89.40 Nicotine dependence, cigarettes, with other nicotine-induced disorders F17.218 Liver cirrhosis K74.60
[2019-05-15] MEDS: piperacillin-tazobactam 3.375 GM in sodium chloride 0.9% (plus) 100 ML IV ×2 (12:44→20:46)
[2019-05-16] VITALS (14 sets, daily range): BP systolic 145–159; BP diastolic 73–90; PULSE 70–107; RESP 17–32; TEMP 36.5–36.8; O2SAT 89–97
[2019-05-16] MEDS: HYDROcodone-acetaminophen 5-325 mg Tablet 1 TAB PO ×3 (02:18→12:53)
[2019-05-16] MEDS: piperacillin-tazobactam 3.375 GM in sodium chloride 0.9% (plus) 100 ML IV ×2 (05:25→12:53)
[2019-05-16 05:54] LABS: Basophils % 0.2 %; Hematocrit 30.8 % (37.0-47.0); Hemoglobin 9.3 g/dL (11.5-15.3); Lymphocytes # 0.6 10^3/uL (0.8-4.8); Lymphocytes % 9.1 %; Mean Corpuscular HGB Conc 30.2 g/dL (30.0-36.0); Mean Corpuscular Hemoglobin 23.4 pg (28.0-34.0); Mean Corpuscular Volume 77.4 fL (81-99); Monocytes # 0.5 10^3/uL (0.2-0.9); Monocytes % 7.5 %; Neutrophils # 5.1 10^3/uL (1.8-7.7); Neutrophils % 82.9 %; Nucleated Red Blood Cells % 0 %; Platelet Count 187 10^3/cmm (130-400); Red Blood Count 3.98 10^6/uL (4.1-5.3); Red Cell Distribution Width 26.6 % (12.1-15.1); White Blood Count 6.2 10^3/uL (4.0-10.0)
[2019-05-16 06:09] LABS: Anion Gap 12.8 (5-19); Blood Urea Nitrogen 16 mg/dL (8-23); Calcium 8.5 mg/dL (8.5-10.5); Carbon Dioxide 28 mmol/L (22-29); Chloride 99 mmol/L (98-107); Glomerular Filtration Rate 100.3 mL/min (90-130); Glucose 100 mg/dL (65-115); Osmolality Calculated 278 mOsm/kg (285-295); Potassium 3.8 mmol/L (3.5-5.1); Sodium 136 mmol/L (136-145)
[2019-05-16 06:47] LABS: Slide Review Slide Review Perform
[2019-05-16] MEDS: ipratropium-albuterol 3 mL Neb INHALATION ×3 (07:51→15:54)
[2019-05-16] MEDS: budesonide 0.5 mg/2 mL Neb INHALATION (07:51)
[2019-05-16] MEDS: pantoprazole DR 40 mg Tablet PO (08:14)
[2019-05-16] MEDS: citalopram 20 mg Tablet PO (08:14)
[2019-05-16] MEDS: lactobacillus 1 Tablet 1 TAB PO (08:15)
[2019-05-16] MEDS: dexamethasone 4 mg Tablet PO (08:15)
--- NOTE | 2019-05-16 11:57 | PM.DCS ---
Discharge Providers Date of Admission: 05/02/19 22:44 Date of Discharge: May 16, 2019 Attending Provider at Admission: Yvonne Isaac MD Attending Provider at Discharge: Salvador Forde MD Primary Care Provider: Krista Bush NP Diagnoses at Discharge Discharge Diagnosis (1) Left upper lobe pneumonia: Status: Acute Problem details: Will receive 7 more days of Levaquin. She is afebrile. Stable on 4 L of oxygen. Has a left pleural effusion but refuses thoracentesis. (2) Mass of left lung: Status: Chronic Problem details: Identified in January 2019 but has thus far refused work-up. Carcinoma found on bronchoscopy biopsy. Radiation treatments have been started. Refuses [place] drain. Reports at this time radiation is all she is going to do. (3) Microcytic anemia: Status: Acute Problem details: Unclear duration, likely combination of chronic disease and chronic blood loss (4) Bipolar 1 disorder: Status: Chronic Problem details: As obtained in [facility] records. Not on any treatment. Associated with psychoses in the past. (5) Chronic hepatitis C virus genotype 1b infection: Status: Chronic Problem details: Obtained from [facility] records. Treatment status unknown but highly doubt she ever received any. (6) Protein calorie malnutrition: Status: Acute Qualifiers: Protein-calorie malnutrition severity: moderate Qualified Code(s): E44.0 - Moderate protein-calorie malnutrition (7) Hypertrophic pulmonary osteoarthropathy: Status: Chronic (8) Nicotine dependence, cigarettes, with other nicotine-induced disorders: Status: Chronic Problem details: In reported early remission as of 05/03/2019 (9) Liver cirrhosis: Status: Acute Reason for Visit Reason for Visit: Reason For Visit: Intercranial mestatis Hospital Course Hospital Course: Evelyn is a 63-year-old white female who presented to the hospital with increasing shortness of breath. She was found to have a left upper lobe pneumonia, postobstructive. She was found to have a left lung mass. Consultation with pulmonary, was obtained and bronchoscopy performed May 05. Biopsies from this demonstrated adenocarcinoma, invasive. Patient received IV antibiotics, and had some gradual improvement. Psychiatry was consulted and diagnosed the patient with a personality disorder. 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 Dexamethasone was initiated. Consultation with radiation oncology occurred secondary to the lung mass and radiation treatments were started on May 13. During this time I had multiple discussions with the patient's regarding her goal of therapy. I also reviewed her x-rays and noted worsening pleural fluid on the left and possible need for thoracentesis. Patient refused to have this procedure done. She was amenable to radiation but reported she would be resistant at this time to getting any chemotherapy. She did agree to go to skilled care, secondary to her debility from the pneumonia. At discharge the overall plan was to continue and complete her radiation treatments, considered palliative at this point. I have offered her follow-up with oncology, but at this time with her current comorbidities, and overall health views I do not think she is a candidate for chemotherapy. This can of course be reviewed in the future at her discretion. Further follow-up was arranged as noted. Physical Exam Narrative: EXAM NARRATIVE: General exam is no apparent distress Cardiovascular regular rate and rhythm without murmur Lungs clear but with diminished breath sounds left lung Abdomen is soft with positive bowel sounds Extremities no cyanosis clubbing or edema Discharge Data Data Completed and Pending: Completed Studies During Hospitalization Category Date Time Status CT abdomen pelvis w con* [id number] Rout ine Cat Scan 05/03/19 09:[address] angio chest PE protcl [id number] Urge nt Cat Scan 05/02/19 19:[address] guided radther apyplan [id number] Rout ine Cat Scan 05/13/19 Completed XR chest 1V [id number] Routine Exams 05/06/19 Completed XR chest 1V lindsay ble [id number] Routine Exams 05/07/19 08:53 Completed XR chest 1V lindsay ble [id number] Routine Exams 05/11/19 07:00 Completed XR chest 1V lindsay ble [id number] Stat Exams 05/02/19 19:03 Completed Mycobacteria, Cul ture w/Fluor Stat Lab 05/10/19 11:00 Completed MR head wo con* 7 [id number] Routine MRI 05/10/19 10:02 Completed Cytology [PTH] Ro utine Pth 05/06/19 14:02 Completed Cytology [PTH] Ro utine Pth 05/06/19 14:09 Completed Pathology: Surgic al [PTH] Routine Pth 05/06/19 13:43 Completed US abdomen comple te* [id number] Routine Ultrasound 05/04/19 09:03 Com[place] chest 27503 Ro utine Ultrasound 05/14/19 11:40 Completed Pending at discharge Category Date Time Status Fungal Culture no t HR/SK/BL Routine Lab 05/06/19 12:52 Results Mycobacteria, Cul ture w/Fluor Routi ne Lab 05/06/19 12:52 Results Labs from last 24 hours 05/16/19 05/16/19 05/06/19 05:42 05:42 12:52 WBC 6.2 RBC 3.98 L Hgb 9.3 L Hct 30.8 L MCV 77.4 L MCH 23.4 L MCHC 30.2 RDW 26.6 H Plt Count 187 MPV TNP Neut % (Auto) 82.9 Lymph % (Auto) 9.1 Finney % (Auto) 7.5 Eos % (Auto) 0.0 Baso % (Auto) 0.2 Neut # (Auto) 5.1 Lymph # (Auto) 0.6 L Finney # (Auto) 0.5 Eos # (Auto) 0.0 Baso # (Auto) 0.0 Nucleated RBC % (a uto) 0 Nucleated RBCs # 0.0 Sodium 136 Potassium 3.8 Chloride 99 Carbon Dioxide 28 Anion Gap 12.8 BUN 16 Creatinine 0.6 GFR Calculation 100.3 Glucose 100 Calculated Osmolal ity 278 L Calcium 8.5 HCV RNA (PCR) IU l og10 TB Test TB - Nil Misc Test Referenc e See comment 05/03/19 15:00 WBC RBC Hgb Hct MCV MCH MCHC RDW Plt Count MPV Neut % (Auto) Lymph % (Auto) Finney % (Auto) Eos % (Auto) Baso % (Auto) Neut # (Auto) Lymph # (Auto) Finney # (Auto) Eos # (Auto) Baso # (Auto) Nucleated RBC % (a uto) Nucleated RBCs # Sodium Potassium Chloride Carbon Dioxide Anion Gap BUN Creatinine GFR Calculation Glucose Calculated Osmolal ity Calcium HCV RNA (PCR) IU l og10 See comment TB Test TB - Nil See comment Misc Test Referenc e Vitals: Last Vital Signs Temp 98.3 F 05/16/19 08:00 Pulse 107 H 05/16/19 11:42 Resp 18 05/16/19 11:34 BP 159/73 05/16/19 08:00 Pulse Ox 89 L 05/16/19 11:34 Discharge Plan Discharge Patient Disposition: Xfer SNF Condition: Stable Prescriptions: New citalopram 20 mg Tablet 20 mg PO DAILY Qty: 30 RF: 0 budesonide 0.5 mg/2 mL Suspension For Nebulization 0.5 mg inhalation BID.RESPIRATORY Qty: 120 RF: 0 dexamethasone 2 mg tablet 2 mg PO BID Qty: 30 RF: 0 pantoprazole 40 mg Tablet,Delayed Release (Dr/Ec) 40 mg PO DAILY Qty: 30 RF: 0 polyethylene glycol 3350 [Miralax] 17 gram Powder In Packet 17 g PO DAILY Qty: 30 RF: 0 ipratropium-albuterol 0.5 mg-3 mg(2.5 mg base)/3 mL solution for nebulization 3 ml INHALATION QID Qty: 180 RF: 0 levofloxacin [Levaquin] 750 mg tablet 750 mg PO DAILY 7 Days Qty: 7 RF: 0 Continued ascorbic acid (vitamin C) 100 mg tablet 100 mg PO DAILY RF: 0 multivitamin [Daily Multi-Vitamin] Tablet 1 tab PO DAILY RF: 0 magnesium 200 mg tablet 200 mg PO DAILY RF: 0 Discontinued Tylenol Extra Strength 500 mg Tablet RF: 0 acai spencer extract RF: 0 Discharge Orders: Discharge Order (Routine); Ordered 05/16/19 Ordered By: Salvador Forde Referrals: [facility] [Outside] - 4-7 days (Follow-up with primary care provider at snf facility 3 to 5 days) Stacy Bradley MD [Staff Physician] - 1 week [facility] [Staff Physician] - 1-3 days (Continue to keep follow-up with radiation oncology to complete x-ray therapy) Discharge Diet: Diabetic Discharge Activity: Resume usual activity Activity Restrictions/Additional Instructions: Take all medicine as prescribed Oxygen 4 L per facemask or nasal cannula, titrate for sat greater than or equal to 90% Radiation oncology, to review medications and determine if dexamethasone should be continued. Discharge Attestations Time Spent in Discharge Care*: greater than 30 min Quality Metrics Clinical Quality Measures During this hospital stay, did patient experience: None Coding Level of Care Code Acute Java Developer With Security Clearance for Chg Fwd Diagnoses Left upper lobe pneumonia J18.9 Mass of left lung R91.8 Microcytic anemia D50.9 Bipolar 1 disorder F31.9 Chronic hepatitis C virus genotype 1b infection B18.2 Protein calorie malnutrition E44.0 Protein-calorie malnutrition severity: moderate Hypertrophic pulmonary osteoarthropathy M89.40 Nicotine dependence, cigarettes, with other nicotine-induced disorders F17.218 Liver cirrhosis K74.60
--- NOTE | 2019-05-16 12:39 | PC.NURSE ---
Patient let me get all vitals except BP. Patient is packing to go home.
--- NOTE | 2019-05-16 14:49 | PC.NURSE ---
Called [facility] to give report on patient discharge to their care. Report given to HEIDY Elias. Patient A&Ox3, last pain medication (Hydrocodone 5/325mg) give at 1300 for general pain 10/13. Last BM 05/16/19, lungs are deminshed. Fall precautioinsStage 2 pressure area with dressing clean, dry, and intact. Oxygen mask set on 4-6L high flow. Patient eats carb consistent/Diabetic Diet. Patient refuses insulin checks or insulin, education has been provided and she voices understanding. Patient has partial dentures and glasses that will be going with her. Patient son notified. Transportation will be here by 530.
== END 2019-05-16 16:09 | disposition skilled nursing facility (03) | DRG 193 ==
LOC: ER 18:02 → MEDSURG 05-03 00:31
PROVIDERS: Family Medicine; Internal Medicine Critical Care Medicine; Admitting Provider Hospitalist; Emergency Provider Emergency Medicine; PCP Nurse Practitioner Family; Visit Provider Internal Medicine
PROC: 0BJ08ZZ Inspection of Tracheobronchial Tree, Via Natural or Artificial Opening Endoscopic (ICD-10-PCS; CPT 31622; principal; 2019-05-06 12:00)
DX: J18.9 Pneumonia, unspecified organism (principal); G93.6 Cerebral edema; E44.0 Moderate protein-calorie malnutrition; K76.6 Portal hypertension; N39.0 Urinary tract infection, site not specified; C34.92 Malignant neoplasm of unspecified part of left bronchus or lung; J91.8 Pleural effusion in other conditions classified elsewhere; D50.9 Iron deficiency anemia, unspecified; F31.9 Bipolar disorder, unspecified; B18.2 Chronic viral hepatitis C; M89.40 Other hypertrophic osteoarthropathy, unspecified site; F17.218 Nicotine dependence, cigarettes, with other nicotine-induced disorders; K74.60 Unspecified cirrhosis of liver; K74.69 Other cirrhosis of liver; F10.10 Alcohol abuse, uncomplicated; F12.90 Cannabis use, unspecified, uncomplicated; R04.0 Epistaxis; F60.89 Other specific personality disorders; Z91.19 Patient's noncompliance with other medical treatment and regimen; Z68.22 Body mass index [BMI] 22.0-22.9, adult
CPT/HCPCS: 12345; 36415; 36416; 70551; 71045; 71275; 74177; 76000; 76604; 76700; 77290; 77295; 77300; 77334; 77387; 77412; 80048; 80053; 80074; 80202; 81001; 82274; 82728; 82962; 82977; 83540; 83550; 83690; 83735; 83880; 84100; 84145; 84443; 84484; 85025; 85045; 85610; 85651; 85730; 86140; 86480; 86592; 87015; 87040; 87070; 87116; 87205; 87206; 87522; 87641; 87801; 87806; 88112; 88305; 88307; 88342; 93005; 94640; 94762; 96374; 96375; 97110; 97116; 97161; 97167; 97530; 97535; 99283; J0171; J0330; J0456; J0696; J1100; J1756; J2001; J2060; J2250; J2270; J2405; J2543; J2704; J3010; J3370; J3490; J7030; J7050; J7611; J7626; J8540; Q0144; Q9967

== ENCOUNTER 2019-05-23 05:52 | Outpatient (RCR) | payer MEDICARE, MEDICAID, SELFPAY ==
--- NOTE | 2019-05-21 | CT_ITS ---
Radiation Therapy Planning CT images; total exam DLP: 438.60 mGy-cm MTDD
--- NOTE | 2019-05-21 17:58 | ONCRAD TMN_ITS ---
[facility] Oncology Weekly Treatment Management Patient: Evelyn Kuo MR#: [id number] : 1955> Age: 63> Sex: Female Dictated by: Dr. Monty Levin Date of Service: 05/21/2019 Referring Physician(s) : Dr. Ananda Dumas Primary Diagnosis: Radiotherapy to date: Course: Lung 2019, Treatment Site: Lung 17.5Gy, Ref. ID: [id number], Energy: 15X, Dose/Fx (cGy): 250, #Fx: , Dose Correction (cGy): 0, Total Dose (cGy): 1,500, Start Date: 05/14/2019, Elapsed Days: 7 Current Complaints/Interval History: She has improved markedly. She has oxygen available but is taking physical therapy at her intermediate, which includes ambulation, and is not using any oxygen with that activity. She has less cough. She has no pain. She states that she is eating well. She is very encouraged by the fact that she feels better so quickly after initiating radiation. Dr. Schmitt called me and discussed her case. She had what appeared to be complete obstruction of the left lung and a white out of the entire left debra-thorax. Dr. Schmitt started palliative radiation covering most of the hemithorax, though sparing the heart as much as possible. He prescribed 7 treatments and then recommended that she have a CT to see if the volume of treatment could be reduced. The patient has achieved 6 treatments as of today and we decided to go ahead and get a CT so we can make plans about additional treatment. Her CT shows a dramatic response. There is now aeration of the upper lung. The mass is large but appears to be significantly reduced in size. I discussed this improvement with the patient and she was very happy to hear about it. I suggested that we deliver 8 treatments and then give her a 2-week break. If there is additional reduction in the size of the mass, she will be able to undergo a more aggressive course of radiation. Dr. Schmitt suggested we consider a total dose of 4500 to 5000 cGy if possible. The patient is willing to proceed as recommended. She will receive 2 more treatments and then will go on break. She will return for a planning CT week after next. Current Medications: Allergies: Vital Signs: Physical Exam: Appears stable, no skin erythema or desquamation. Performance Status: Lab: None pending in Radiation Oncology. Imaging: No new diagnostic imaging was performed since the last weekly treatment visit. All radiation therapy related imaging (including but not limited to kV, MV, and CBCT generated images) was reviewed. Appropriate changes, if any, were made to assure accurate target localization. Impression/Plan: Tolerating treatment well with expected side effects. Continue treatment as planned. CPT: 58026 Signed by: Dr. Monty Levin>05/21/2019 5:56:52 PM <<Signature on File>>
== END 2019-06-04 23:59 | disposition home or self-care (01) ==
LOC: ONCMED 05:52
PROVIDERS: PCP Nurse Practitioner Family; Visit Provider Specialist
DX: Z51.0 Encounter for antineoplastic radiation therapy (principal); C34.12 Malignant neoplasm of upper lobe, left bronchus or lung
CPT/HCPCS: 77263; 77290; 77295; 77300; 77334; 77336; 77387; 77412; G6002

== ENCOUNTER 2019-06-14 14:41 | Inpatient (IN) | payer MEDICARE, MEDICAID, SELFPAY ==
[2019-06-14 14:52] VITALS: BP 116/76; PULSE 121; RESP 22; TEMP 36.5; O2SAT 97; BMI 18.0
--- NOTE | 2019-06-14 15:25 | CT_ITS ---
WS: [id number] CTA OF THE CHEST WITH PULMONARY EMBOLISM PROTOCOL TECHNIQUE: High-resolution contrast enhanced CTA of the chest with coronal and sagittal reformatted i jamilah with pulmonary embolism protocol. MIP images are also reviewed. CLINICAL INFORMATION: hemoptysis COMPARISON: May 02, 2019 DLP: 484.[address] scans at [facility] use at least one of these dose optimization techniques: automat ed exposure control; mA and/or kV adjustment per patient size (includes targeted exams where dose is matched to clinical indication); or iterative reconstruction. FINDINGS: Proximal main pulmonary arteries are normal. Normal segmental and subsegmental pulmonary arteries. No evidence for pulmonary embolus. Normal caliber thoracic aorta. Small left pleural effusion has progressed from previous. Left basilar atelectasis. Dense lobar conso lidation involving the anterior segment left upper lobe consistent with known neoplasm has improved s lightly from previous. Progress consolidation in the lingula likely due to pneumonia. Enlarged AP window and peribronchial lymph nodes. Again seen are tree in bud opacities with centrilob ular nodules in the right upper lobe some with central cavitation. A few subcentimeter nodules in the right lower lobe. Additional groundglass infiltrates in the right upper and lower lobe are new from previous. Moderate thoracic kyphosis. Hepatomegaly and splenomegaly partially visualized. Notified Watson Cruz MD [facility] at 06/14/2019 4:[address] angio chest PE protcl [id number] IMPRESSION: 1. No evidence for pulmonary embolus. 2. Again seen is dense lobar consolidation involving the left upper lobe sligh tly improved from previous. Progressed consolidation involving the lingula. Fin dings consistent with patient's known left upper lobe neoplasm with presumably progressed lingula pneumonia 3. Small left pleural effusion has progressed slightly with left basilar atele ctasis. 4. Again seen are small centrilobular nodules in the right upper lobe some in a tree-in-bud configuration. Some of these demonstrate central cavitation. Diff erential considerations include atypical bacterial and fungal infection. Septic emboli is also a consideration but less likely. 5. A few hazy groundglass infiltrates within the right upper lobe and right lo wer lobe are new from previous. These are nonspecific but can be seen with COVI D-19 6. Hepatomegaly and splenomegaly. This is partially visualized.
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
--- NOTE | 2019-06-14 16:07 | PC.NURSE ---
Pt swabbed for COVID-19 per protocol.
[2019-06-14 16:14] LABS: Basophils % 0.4 %; Eosinophils % 0.4 %; Hematocrit 32.9 % (37.0-47.0); Hemoglobin 10.1 g/dL (11.5-15.3); Lymphocytes # 1.3 10^3/uL (0.8-4.8); Mean Corpuscular HGB Conc 30.7 g/dL (30.0-36.0); Mean Corpuscular Hemoglobin 24.5 pg (28.0-34.0); Mean Corpuscular Volume 79.9 fL (81-99); Monocytes # 0.5 10^3/uL (0.2-0.9); Monocytes % 9.1 %; Neutrophils # 3.5 10^3/uL (1.8-7.7); Neutrophils % 65.5 %; Nucleated Red Blood Cells % 0 %; Platelet Count 194 10^3/cmm (130-400); Red Blood Count 4.12 10^6/uL (4.1-5.3); White Blood Count 5.3 10^3/uL (4.0-10.0)
[2019-06-14 16:24] VITALS: RESP 17
[2019-06-14] MEDS: iohexol 350 mg/mL 100 mL Btl IV (16:27)
[2019-06-14 16:28] LABS: Alanine Aminotransferase 28 U/L (0-33); Albumin Level 2.3 g/dL (3.5-5.2); Alkaline Phosphatase 143 IU/L (35-105); Anion Gap 12.6 (5-19); Aspartate Amino Transferase 42 U/L (0-32); Blood Urea Nitrogen 22 mg/dL (8-23); C Reactive Protein 81.1 mg/L (0.0-4.9); Calcium 8.3 mg/dL (8.5-10.5); Carbon Dioxide 27 mmol/L (22-29); Chloride 94 mmol/L (98-107); Glucose 97 mg/dL (65-115); Osmolality Calculated 267 mOsm/kg (285-295); Potassium 3.6 mmol/L (3.5-5.1); Sodium 130 mmol/L (136-145); Total Bilirubin 0.4 mg/dL (0.15-1.2); Total Protein 6.3 g/dL (6.6-8.7)
[2019-06-14 17:19] LABS: Influenza A by IFA Negative (Negative); Influenza B by IFA Negative (Negative)
[2019-06-14] MEDS: levofloxacin-dextrose 5 % 750 MG/150 ML PREMIX 100 MG IV (18:58)
[2019-06-14] MEDS: HYDROcodone-acetaminophen 5-325 mg Tablet 1 TAB PO (19:17)
--- NOTE | 2019-06-14 19:35 | PC.NURSE ---
During pt rounding, pt requesting coffee and pudding. request made to
[2019-06-14 19:36] VITALS: BP 151/82; PULSE 104; RESP 18; O2SAT 94
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
[2019-06-14 20:31] VITALS: RESP 18; O2SAT 94
[2019-06-14] MEDS: morphine 4 mg/mL SDV 1 mL IVP (20:31)
[2019-06-14 20:37] VITALS: PULSE 100; RESP 18; O2SAT 94
[2019-06-14 21:00] VITALS: BP 129/72; PULSE 109; RESP 21; TEMP 36.7; O2SAT 94
[2019-06-14] MEDS: sodium chloride 0.9% 1,000 ML 100 ML IV (21:41)
[2019-06-14] MEDS: piperacillin-tazobactam 3.375 GM in sodium chloride 0.9% (plus) 50 ML IV (21:43)
[2019-06-14] MEDS: vancomycin 1,000 MG in sodium chloride 0.9% 250 ML 250 MG IV ×2 (21:54→21:57)
[2019-06-14 22:20] LABS: Fibrinogen 341 mg/dL (184-529); Partial Thromboplastin Time 31.1 SECONDS (23.9-36.7)
[2019-06-14 22:32] LABS: Procalcitonin 0.36 ng/mL (0-0.5)
[2019-06-14 22:36] LABS: Platelet Count 194 10^3/cmm (130-400)
[2019-06-14 22:42] LABS: Ferritin 350 ng/mL (15-150); Lactate Dehydrogenase 182 U/L (135-214)
[2019-06-15] VITALS (64 sets, daily range): BP systolic 103–130; BP diastolic 53–72; PULSE 64–121; RESP 14–30; TEMP 36.6–37.1; O2SAT 92–97
[2019-06-15] MEDS: morphine 4 mg/mL SDV 1 mL 2 MG IVP ×4 (01:57→21:05)
[2019-06-15 05:33] LABS: Basophils % 0.6 %; Eosinophils % 0.2 %; Hematocrit 32.4 % (37.0-47.0); Lymphocytes # 0.9 10^3/uL (0.8-4.8); Lymphocytes % 19.7 %; Mean Corpuscular HGB Conc 30.9 g/dL (30.0-36.0); Mean Corpuscular Hemoglobin 24.6 pg (28.0-34.0); Mean Corpuscular Volume 79.6 fL (81-99); Monocytes # 0.4 10^3/uL (0.2-0.9); Monocytes % 8.1 %; Neutrophils # 3.3 10^3/uL (1.8-7.7); Neutrophils % 70.8 %; Nucleated Red Blood Cells % 0 %; Platelet Count 178 10^3/cmm (130-400); Red Blood Count 4.07 10^6/uL (4.1-5.3); Red Cell Distribution Width 24.3 % (12.1-15.1); White Blood Count 4.7 10^3/uL (4.0-10.0)
[2019-06-15] MEDS: piperacillin-tazobactam 3.375 GM in sodium chloride 0.9% (plus) 50 ML IV ×3 (05:40→21:05)
[2019-06-15 05:52] LABS: Anion Gap 11.6 (5-19); Blood Urea Nitrogen 14 mg/dL (8-23); Carbon Dioxide 27 mmol/L (22-29); Chloride 94 mmol/L (98-107); Glucose 104 mg/dL (65-115); Osmolality Calculated 265 mOsm/kg (285-295); Potassium 3.6 mmol/L (3.5-5.1); Sodium 129 mmol/L (136-145)
[2019-06-15 06:41] LABS: Slide Review Slide Review Perform
[2019-06-15] MEDS: dexamethasone 4 mg Tablet 2 MG PO ×2 (08:13→17:29)
[2019-06-15] MEDS: pantoprazole DR 40 mg Tablet PO (08:13)
[2019-06-15] MEDS: divalproex DR 250 mg Tablet PO (08:13)
[2019-06-15] MEDS: citalopram 20 mg Tablet PO (08:13)
[2019-06-15] MEDS: HYDROcodone-acetaminophen 5-325 mg Tablet 1 TAB PO ×2 (08:13→13:56)
--- NOTE | 2019-06-15 08:50 | USR_ITS ---
PROCEDURE INFORMATION: Exam: US Chest Exam date and time: 06/15/2019 5:22 PM Age: 63 years old Clinical indication: Condition or disease; Chest deformity; Patient HX: History of left lung mass; Additional info: R/O pleural effusion TECHNIQUE: Imaging protocol: Real time ultrasound of the chest was performed with image documentation. COMPARISON: US chest [id number] 05/14/2019 5:39 PM FINDINGS: Lungs: Limited evaluation of the lungs is unremarkable. No abnormal B lines are evident. Visualized lung does not appear consolidated. Pleural space: No pleural effusion. Smooth pleural line is present. Left kidney: Targeted ultrasound evaluation of the left thorax demonstrates a mild to moderate size left pleural effusion. This appears slightly smaller than on the prior ultrasound. US/US chest [id number] IMPRESSION: Slightly smaller mild to moderate left pleural effusion.
--- NOTE | 2019-06-15 11:41 | PC.CHAP ---
Pastoral Care Encounter/Spiritual Assessment Type of Contact [] Declined molded goods embossing press operator visit [] Patient/Family/Request visit [] Outpatient visit [] Follow-up visit [] Physician referral [] Code/Alert [] Routine visit [] Staff referral [] Actively dying [] Patient sleeping [] Family support [] [] Out of room [] Palliative care [] [] Receiving care in room [] Pre-surgical visit [] Trauma [] Long length of stay [] ICU visit [] Other: Relational/Emotional Strength [] Patient feels connected with others/family/visitors/staff [] Distress [] Loneliness/isolation [] Abandonment Spirituality of Patient [] Person of [place] [] Attends Synagogue of their [place] [] Believes in Prayer [] Reads Bible or Confucianism materials [] There are Spiritual issues to be addressed International Project Engineer Interventions [] Prayer [] Active listening [] Non-anxious presence [] Spiritual/emotional support [] Crisis/trauma care [] Spiritual counseling [] Bereavement support [] Provided bereavement packet [] Provided Bible/devotional materials [] Provided toy/stuffed animal, coloring book to patient or family member [] Provided Communion [] Anointing/[place] [] Salvation [] Completed spiritual assessment [] Other: Impact on Illness or Injury [] Angry [] Fearful [] Anxious [] Often cries [] Exhaustion [] Unable to work [] Unable to attend religious [] Unable to walk/stand [] Unable to read [] Unable to drive [] Unable to eat/drink [] Unable to sleep [] Unable to be with family [] Patient intubated [] Other: Summary PRECAUTIONS, NO VISIT Time spent with patient
--- NOTE | 2019-06-15 12:33 | P.PN_ITS ---
Subjective Subjective: Interval history: NO acute events overnight. Sleeping during exam, but arousable. Saturating more than 92% on RA. COVID pending. Vitals/I&O/Wt Last Vital Signs Temp 98.7 F 06/15/19 09:00 Pulse 64 06/15/19 09:09 Resp 16 06/15/19 09:09 BP 103/63 06/15/19 09:00 Pulse Ox 95 06/15/19 09:09 06/14/19 06/15/19 06/15/19 22:59 06:59 14:59 Intake Total 650 / 650 800 / 1450 290 / 290 Output Total 700 / 700 Balance 650 / 650 100 / 750 290 / 290 Weight last 48 hrs Weight 55.338 kg Physical Exam Narrative: EXAM NARRATIVE: General: No acute distress, AO x3 HEENT: PERRLA, pupils bilaterally equal and reactive Chest: Normal vesicular breath sounds, no added sounds, equal good air entry bilaterally CVS: S1-S2 regular, no murmurs, no tachycardia, no gallops, no rubs Abdomen: Soft, nontender, no organomegaly, bowel sounds present Neuro: No focal deficits, no facial deformity, AO x3, power 5/5 in all limbs Data : 06/15/19 05:19 06/15/19 05:19 Micro: Microbiology 06/15/19 01:00 Gram Stain - Final Sputum - Expectorated Sputum 06/15/19 03:50 Legionella Urinary Antigen - Final Urine,Voided Bacterial Antigens - Final 06/14/19 22:59 Blood Culture - Preliminary Blood SPECIMEN COLLECTED 06/14/19 22:55 Blood Culture - Preliminary Blood SPECIMEN COLLECTED A&P Assessment and plan (1) Postobstructive pneumonia: Status: Acute (2) Hemoptysis: Status: Acute (3) Lung cancer: Status: Acute Qualifiers: Laterality: left Lung location: upper lobe of lung Qualified Code(s): C34.12 - Malignant neoplasm of upper lobe, left bronchus or lung (4) SIADH (syndrome of inappropriate ADH production): Status: Acute (5) Liver cirrhosis: Status: Acute (6) Protein calorie malnutrition: Status: Acute Qualifiers: Protein-calorie malnutrition severity: moderate Qualified Code(s): E44.0 - Moderate protein-calorie malnutrition (7) Cluster A personality disorder: Status: Acute (8) Bipolar 1 disorder: Status: Chronic (9) Hypertrophic pulmonary osteoarthropathy: Status: Chronic Additional A&P Information Postobstructive pneumonia: Lung cancer undergoing radiation therapy. Procalcitonin borderline high, proBNP normal, no leukocytosis, continues to remain afebrile but CT imaging concerning for consolidation. Continue with vancomycin and Zosyn for postobstructive pneumonia. Will de- escalate antibiotics as per the culture results. Legionella and bacterial antigen negative so we will stop the levofloxacin. We will continue with single coverage for Pseudomonas for now. MRSA swab done last on last admission was negative. Follow blood cultures, sputum culture results. COVID 19 test pending. So continue on precautions/isolation for now. Once the test come back can plan to do left chest wall ultrasound to evaluate for pleural effusion. Oxygen supplementation keeping saturation over 92%. Start patient on home dose of DuoNeb's and budesonide. Tessalon Perles 200 3 times daily for cough. 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 Currently undergoing palliative radiation therapy status post 8 cycles. Continue home dose of [place] every 4 hours as needed. Hyponatremia: Most likely SIADH as got worse as patient was on fluids. Stop IV fluids. We will add urine lites to urine studies from yesterday. Calculated serum osmolality 265. Bilateral lower extremity venous stasis dermatitis No active purulent discharge, wound actually looks dry, 2+ pitting Cluster a personality disorder/bipolar Continue home dose of citalopram and divalproex. Protein calorie malnourishment: Low albumin 2.3, Tolerating full liquid diet well. Will advance her to regular diet with Ensure with each meals. Will need social consult once negative for coronavirus for possible discharge planning. Liver cirrhosis most likely secondary to hepatitis C without acute decompensation: Liver function stable. DVT prophylaxis: Patient is high risk for developing DVTs given active cancer so we will start on Heparin 5000 every 8 hourly. Hemoglobin stable. No massive hemoptysis. Bowel regimen. Full code Regular diet with Ensure. Considering immunocompromise state, active hemoptysis and groundglass opacities, her prognosis will stay guarded, currently does not need ICU, able to protect her airways, high risk for mortality/morbidity Attestations Medical Necessity Statement*: Postobstructive pneumonia, SIADH, invasive adenocarcinoma of left lung Time Spent in Patient Care: Greater than 35 minutes Coding Level of Care Code Acute Sales Marketing Coordinator for g Fwd Diagnoses Postobstructive pneumonia J18.9 Hemoptysis R04.2 Lung cancer C34.12 Laterality: left Lung location: upper lobe of lung SIADH (syndrome of inappropriate ADH production) E22.2 Liver cirrhosis K74.60 Protein calorie malnutrition E44.0 Protein-calorie malnutrition severity: moderate Cluster A personality disorder F60.89 Bipolar 1 disorder F31.9 Hypertrophic pulmonary osteoarthropathy M89.40
[2019-06-15 15:21] LABS: Potassium, Radom Urine 40 mmol/L; Urine Random Chloride 36 mmol/L; Urine Random Sodium 22 mmol/L
[2019-06-15] MEDS: benzonatate 100 mg Capsule 200 MG PO ×2 (15:46→21:04)
[2019-06-15 16:46] LABS: Coronavirus Lab Test PTC Negative
[2019-06-15] MEDS: vancomycin 1,000 MG in sodium chloride 0.9% 250 ML 250 MG IV (18:54)
[2019-06-15] MEDS: ipratropium-albuterol 3 mL Neb INHALATION (20:26)
[2019-06-15] MEDS: budesonide 0.5 mg/2 mL Neb INHALATION (20:26)
[2019-06-16] VITALS (11 sets, daily range): BP systolic 105–135; BP diastolic 56–70; PULSE 64–97; RESP 16–22; TEMP 36.6–37.1; O2SAT 93–98
[2019-06-16] MEDS: HYDROcodone-acetaminophen 5-325 mg Tablet 1 TAB PO ×3 (05:07→23:48)
[2019-06-16] MEDS: piperacillin-tazobactam 3.375 GM in sodium chloride 0.9% (plus) 50 ML IV ×3 (05:08→23:21)
[2019-06-16 05:33] LABS: Hemoglobin 10.1 g/dL (11.5-15.3); Lymphocytes # 0.9 10^3/uL (0.8-4.8); Lymphocytes % 17.8 %; Mean Corpuscular HGB Conc 31.6 g/dL (30.0-36.0); Mean Corpuscular Hemoglobin 25.2 pg (28.0-34.0); Mean Corpuscular Volume 79.8 fL (81-99); Mean Platelet Volume 10.8 fL (7.4-10.4); Monocytes # 0.2 10^3/uL (0.2-0.9); Monocytes % 4.9 %; Neutrophils # 3.8 10^3/uL (1.8-7.7); Neutrophils % 76.7 %; Nucleated Red Blood Cells % 0 %; Red Blood Count 4.01 10^6/uL (4.1-5.3); Red Cell Distribution Width 24.2 % (12.1-15.1); White Blood Count 4.9 10^3/uL (4.0-10.0)
[2019-06-16 05:50] LABS: Alanine Aminotransferase 23 U/L (0-33); Albumin Level 2.2 g/dL (3.5-5.2); Alkaline Phosphatase 125 IU/L (35-105); Anion Gap 10.7 (5-19); Aspartate Amino Transferase 31 U/L (0-32); Blood Urea Nitrogen 10 mg/dL (8-23); Calcium 8.2 mg/dL (8.5-10.5); Carbon Dioxide 29 mmol/L (22-29); Chloride 97 mmol/L (98-107); Globulin 3.7 g/dL (1.3-4.6); Glomerular Filtration Rate 100.3 mL/min (90-130); Glucose 128 mg/dL (65-115); Osmolality Calculated 274 mOsm/kg (285-295); Potassium 3.7 mmol/L (3.5-5.1); Sodium 133 mmol/L (136-145); Total Bilirubin 0.5 mg/dL (0.15-1.2); Total Protein 5.9 g/dL (6.6-8.7)
[2019-06-16 06:24] LABS: Platelet Count 159 10^3/cmm (130-400); Slide Review Slide Review Perform
[2019-06-16] MEDS: citalopram 20 mg Tablet PO (08:59)
[2019-06-16] MEDS: benzonatate 100 mg Capsule 200 MG PO (08:59)
[2019-06-16] MEDS: pantoprazole DR 40 mg Tablet PO (08:59)
[2019-06-16] MEDS: dexamethasone 4 mg Tablet 2 MG PO ×2 (08:59→17:27)
[2019-06-16] MEDS: divalproex DR 250 mg Tablet PO (08:59)
[2019-06-16] MEDS: budesonide 0.5 mg/2 mL Neb INHALATION (09:11)
[2019-06-16] MEDS: ipratropium-albuterol 3 mL Neb INHALATION ×2 (09:11→14:12)
[2019-06-16 10:43] LABS: Vancomycin Trough 5.9 ug/mL (10-15)
--- NOTE | 2019-06-16 12:41 | P.PN_ITS ---
Subjective Subjective: Interval history: Last 24 hours no acute events. Covid testing negative. On examination sitting comfortably in bed on room air saturating more than 94%. Patient having occasional bright red blood minimal hemoptysis with cough. Denies of having any nausea, vomiting, shortness of breath more than her baseline. Vitals/I&O/Wt Last Vital Signs Temp 98.0 F 06/16/19 12:00 Pulse 87 06/16/19 12:00 Resp 16 06/16/19 12:00 BP 127/63 06/16/19 12:00 Pulse Ox 96 06/16/19 12:00 06/15/19 06/16/19 06/16/19 22:59 06:59 14:59 Intake Total 50 / 1700 50 / 1750 360 / 360 Balance 50 / 900 50 / 950 360 / 360 Weight last 48 hrs Weight 55.338 kg Physical Exam Narrative: EXAM NARRATIVE: General: No acute distress, AO x3 HEENT: PERRLA, pupils bilaterally equal and reactive Chest: Decreased air entry in the left middle and lower zone with occasional pleural rub and crackles, normal vesicular breath sounds on the right side. CVS: S1-S2 regular, no murmurs, no tachycardia, no gallops, no rubs Abdomen: Soft, nontender, no organomegaly, bowel sounds present Neuro: No focal deficits, no facial deformity, AO x3, power 5/5 in all limbs Data : 06/16/19 05:17 06/16/19 05:17 Micro: Microbiology 06/15/19 01:00 Gram Stain - Final Sputum - Expectorated Sputum Sputum Culture - Preliminary 06/14/19 22:59 Blood Culture - Preliminary Blood NEGATIVE TO DATE 06/14/19 22:55 Blood Culture - Preliminary Blood NEGATIVE TO DATE 06/15/19 03:50 Legionella Urinary Antigen - Final Urine,Voided Bacterial Antigens - Final A&P Assessment and plan (1) Postobstructive pneumonia: Status: Acute (2) Hemoptysis: Status: Acute (3) Lung cancer: Status: Acute Qualifiers: Laterality: left Lung location: upper lobe of lung Qualified Code(s): C34.12 - Malignant neoplasm of upper lobe, left bronchus or lung (4) SIADH (syndrome of inappropriate ADH production): Status: Acute (5) Liver cirrhosis: Status: Acute (6) Protein calorie malnutrition: Status: Acute Qualifiers: Protein-calorie malnutrition severity: moderate Qualified Code(s): E44.0 - Moderate protein-calorie malnutrition (7) Cluster A personality disorder: Status: Acute (8) Bipolar 1 disorder: Status: Chronic (9) Hypertrophic pulmonary osteoarthropathy: Status: Chronic Additional A&P Information Postobstructive pneumonia: Lung cancer undergoing radiation therapy. Procalcitonin borderline high, proBNP normal, no leukocytosis, continues to remain afebrile but CT imaging concerning for consolidation. Continue with vancomycin and Zosyn for postobstructive pneumonia. Will de- escalate antibiotics as per the culture results. Day 3/7 treatment today Legionella and bacterial antigen negative so we will stop the levofloxacin. We will continue with single coverage for Pseudomonas for now. MRSA swab done last on last admission was negative. Follow blood cultures, sputum culture results. COVID 19 test negative. Oxygen supplementation keeping saturation over 92%. Start patient on home dose of DuoNeb's and budesonide. Tessalon Perles 200 3 times daily for cough. Hemoptysis: Most likely because of invasive adenocarcinoma. We will get pulmonology consult for possible bronchoscopy to see if patient would need bronchial stenting. Saline nebulization. 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 Currently undergoing palliative radiation therapy status post 8 cycles. Continue home dose of [place] every 4 hours as needed. Hyponatremia: Most likely SIADH as got worse as patient was on fluids. Sodium level improving to 133 today. Continue to hold fluids. Calculated serum osmolality 265. Bilateral lower extremity venous stasis dermatitis No active purulent discharge, wound actually looks dry, 2+ pitting Cluster a personality disorder/bipolar Continue home dose of citalopram and divalproex. Protein calorie malnourishment: Low albumin 2.3, Tolerating full liquid diet well. Will advance her to regular diet with Ensure with each meals. Liver cirrhosis most likely secondary to hepatitis C without acute decompensation: Liver function stable. DVT prophylaxis: Patient is high risk for developing DVTs given active cancer so we will start on Heparin 5000 every 8 hourly. Hemoglobin stable. No massive hemoptysis. Bowel regimen. Full code Regular diet with Ensure. Considering immunocompromise state, active hemoptysis and groundglass opacities, her prognosis will stay guarded, currently does not need ICU, able to protect her airways, high risk for mortality/morbidity Attestations Medical Necessity Statement*: Postobstructive pneumonia, hemoptysis, left- sided invasive adenocarcinoma with brain mets Time Spent in Patient Care: Greater than 35 minutes Coding Level of Care Code Acute Chemical Production Technician for Chg Fwd Diagnoses Postobstructive pneumonia J18.9 Hemoptysis R04.2 Lung cancer C34.12 Laterality: left Lung location: upper lobe of lung SIADH (syndrome of inappropriate ADH production) E22.2 Liver cirrhosis K74.60 Protein calorie malnutrition E44.0 Protein-calorie malnutrition severity: moderate Cluster A personality disorder F60.89 Bipolar 1 disorder F31.9 Hypertrophic pulmonary osteoarthropathy M89.40
[2019-06-16] MEDS: vancomycin 1,000 MG in sodium chloride 0.9% 250 ML 250 MG IV (14:07)
[2019-06-16] MEDS: benzonatate 100 mg Capsule PO ×2 (17:34→20:59)
[2019-06-17] VITALS (13 sets, daily range): BP systolic 123–143; BP diastolic 56–82; PULSE 74–86; RESP 18–24; TEMP 36.6–36.7; O2SAT 93–99
[2019-06-17] MEDS: ipratropium-albuterol 3 mL Neb INHALATION ×4 (02:34→21:32)
--- NOTE | 2019-06-17 03:56 | PC.NURSE ---
Patient removed her own IV while Zoysn was infusing. She states she does not want another IV she is tired of being poked . She said they can just give me oral medication and let me go home and take my medical marijuana . Dr. Samuel was notified, no further orders received.
[2019-06-17] MEDS: budesonide 0.5 mg/2 mL Neb INHALATION ×2 (08:29→21:32)
[2019-06-17] MEDS: benzonatate 100 mg Capsule PO ×2 (09:38→15:28)
[2019-06-17] MEDS: citalopram 20 mg Tablet PO (09:39)
[2019-06-17] MEDS: pantoprazole DR 40 mg Tablet PO (09:39)
[2019-06-17] MEDS: dexamethasone 4 mg Tablet 2 MG PO ×2 (09:39→17:12)
[2019-06-17] MEDS: divalproex DR 250 mg Tablet PO (09:40)
--- NOTE | 2019-06-17 10:10 | P.PN_ITS ---
Subjective Subjective: Interval history: No acute events overnight. Continues to do well. Hemoptysis. On examination sitting comfortably in bed on room air saturating more than 94%. Denies of having any nausea, vomiting, shortness of breath more than her baseline. Vitals/I&O/Wt Last Vital Signs Temp 97.9 F 06/17/19 07:38 Pulse 86 06/17/19 08:46 Resp 22 H 06/17/19 08:46 BP 135/56 06/17/19 07:38 Pulse Ox 96 06/17/19 08:46 06/16/19 06/17/19 06/17/19 22:59 06:59 14:59 Intake Total 900 / 1730 410 / 2140 360 / 360 Output Total 450 / 450 300 / 750 Balance 450 / 1280 110 / 1390 360 / 360 Physical Exam Narrative: EXAM NARRATIVE: General: No acute distress, AO x3 HEENT: PERRLA, pupils bilaterally equal and reactive Chest: Decreased air entry in the left middle and lower zone with occasional pleural rub and crackles, normal vesicular breath sounds on the right side. CVS: S1-S2 regular, no murmurs, no tachycardia, no gallops, no rubs Abdomen: Soft, nontender, no organomegaly, bowel sounds present Neuro: No focal deficits, no facial deformity, AO x3, power 5/5 in all limbs Data : 06/17/19 12:40 06/17/19 12:40 Micro: Microbiology 06/15/19 01:00 Gram Stain - Final Sputum - Expectorated Sputum Sputum Culture - Preliminary A&P Assessment and plan (1) Postobstructive pneumonia: Status: Acute (2) Hemoptysis: Status: Acute (3) Lung cancer: Status: Acute Qualifiers: Laterality: left Lung location: upper lobe of lung Qualified Code(s): C34.12 - Malignant neoplasm of upper lobe, left bronchus or lung (4) SIADH (syndrome of inappropriate ADH production): Status: Acute (5) Liver cirrhosis: Status: Acute (6) Protein calorie malnutrition: Status: Acute Qualifiers: Protein-calorie malnutrition severity: moderate Qualified Code(s): E44.0 - Moderate protein-calorie malnutrition (7) Cluster A personality disorder: Status: Acute (8) Bipolar 1 disorder: Status: Chronic (9) Hypertrophic pulmonary osteoarthropathy: Status: Chronic Additional A&P Information Postobstructive pneumonia: Lung cancer undergoing radiation therapy. Procalcitonin borderline high, proBNP normal, no leukocytosis, continues to remain afebrile but CT imaging concerning for consolidation. Continue with vancomycin and Zosyn for postobstructive pneumonia. Will de- escalate antibiotics as per the culture results. Day 4/7 treatment today. Legionella and bacterial antigen negative so we will stop the levofloxacin. We will continue with single coverage for Pseudomonas for now. MRSA swab done last on last admission was negative. Follow blood cultures, sputum culture results. COVID 19 test negative. Oxygen supplementation keeping saturation over 92%. Start patient on home dose of DuoNeb's and budesonide. Tessalon Perles 200 3 times daily for cough along with Robitussin as needed every 6 hourly.. Hemoptysis: Most likely because of invasive adenocarcinoma. Discussed and reviewed the CT scan with Dr. Xavier from pulmonology. He states hemoptysis is most likely because of advanced disease and inflammation from palliative radiation therapy. He advises to continue the same treatment as currently. States there is no need of bronchoscopy for now. 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 Currently undergoing palliative radiation therapy status post 8 cycles. Continue home dose of [place] every 4 hours as needed. Hyponatremia: Resolved. Most likely SIADH as got worse as patient was on fluids. Cluster a personality disorder/bipolar Continue home dose of citalopram and divalproex. Protein calorie malnourishment: Low albumin 2.3, Tolerating full liquid diet well. Will advance her to regular diet with Ensure with each meals. Liver cirrhosis most likely secondary to hepatitis C without acute decompensation: Liver function stable. DVT prophylaxis: Hemoglobin stable. No massive hemoptysis. Continue with heparin 5000 q. 8 hourly. Bowel regimen. Full code Regular diet with Ensure. Considering immunocompromise state, active hemoptysis and groundglass opacities, her prognosis will stay guarded, currently does not need ICU, able to protect her airways, high risk for mortality/morbidity. Her care was discussed with her son Ray on phone. He states he is very concerned about her mother and he thinks that she should be hospice as it has been told to him by patient's oncologist and primary care physician. He states at her current condition he cannot take care of her anymore. Discussed the goals of care with patient she thinks she is getting cured and the cancer is shrinking in size. We will consult psychiatry to deem if patient can make her own decisions given her history of bipolar disease, metastatic disease to brain. Attestations Medical Necessity Statement*: Advanced adenocarcinoma of the lung, postobstructive pneumonia, hemoptysis Time Spent in Patient Care: Greater than 35 minutes Coding Level of Care Code Acute Energy Attorney for g Fwd Diagnoses Postobstructive pneumonia J18.9 Hemoptysis R04.2 Lung cancer C34.12 Laterality: left Lung location: upper lobe of lung SIADH (syndrome of inappropriate ADH production) E22.2 Liver cirrhosis K74.60 Protein calorie malnutrition E44.0 Protein-calorie malnutrition severity: moderate Cluster A personality disorder F60.89 Bipolar 1 disorder F31.9 Hypertrophic pulmonary osteoarthropathy M89.40
[2019-06-17 12:53] LABS: Basophils % 0.1 %; Hematocrit 35.1 % (37.0-47.0); Hemoglobin 10.6 g/dL (11.5-15.3); Lymphocytes # 0.7 10^3/uL (0.8-4.8); Lymphocytes % 9.4 %; Mean Corpuscular HGB Conc 30.2 g/dL (30.0-36.0); Mean Corpuscular Hemoglobin 24.7 pg (28.0-34.0); Mean Corpuscular Volume 81.6 fL (81-99); Mean Platelet Volume 10.3 fL (7.4-10.4); Monocytes # 0.3 10^3/uL (0.2-0.9); Monocytes % 4.6 %; Neutrophils # 5.9 10^3/uL (1.8-7.7); Neutrophils % 85.5 %; Nucleated Red Blood Cells % 0.3 %; Platelet Count 176 10^3/cmm (130-400); Red Cell Distribution Width 24.3 % (12.1-15.1); White Blood Count 6.9 10^3/uL (4.0-10.0)
[2019-06-17 13:08] LABS: Alanine Aminotransferase 29 U/L (0-33); Albumin Level 2.6 g/dL (3.5-5.2); Alkaline Phosphatase 143 IU/L (35-105); Anion Gap 15.6 (5-19); Aspartate Amino Transferase 43 U/L (0-32); Blood Urea Nitrogen 13 mg/dL (8-23); Calcium 8.6 mg/dL (8.5-10.5); Carbon Dioxide 26 mmol/L (22-29); Chloride 97 mmol/L (98-107); Globulin 4.4 g/dL (1.3-4.6); Glomerular Filtration Rate 123.8 mL/min (90-130); Glucose 155 mg/dL (65-115); Osmolality Calculated 279 mOsm/kg (285-295); Potassium 3.6 mmol/L (3.5-5.1); Sodium 135 mmol/L (136-145); Total Bilirubin 0.3 mg/dL (0.15-1.2)
[2019-06-17 13:10] LABS: Vancomycin Trough 6.2 ug/mL (10-15)
[2019-06-17 13:49] LABS: Slide Review Slide Review Perform
--- NOTE | 2019-06-17 14:52 | PC.SOCIAL ---
IM initialed explained and copy provided no questions asked.
[2019-06-17] MEDS: piperacillin-tazobactam 3.375 GM in sodium chloride 0.9% (plus) 50 ML IV ×2 (15:28→22:35)
[2019-06-17] MEDS: HYDROcodone-acetaminophen 5-325 mg Tablet 1 TAB PO (19:48)
[2019-06-18] VITALS (9 sets, daily range): BP systolic 115–158; BP diastolic 73–81; PULSE 76–95; RESP 18–24; TEMP 36.4–36.9; O2SAT 92–98
[2019-06-18 05:41] LABS: Hematocrit 33.8 % (37.0-47.0); Hemoglobin 10.3 g/dL (11.5-15.3); Lymphocytes # 0.7 10^3/uL (0.8-4.8); Lymphocytes % 14.3 %; Mean Corpuscular HGB Conc 30.5 g/dL (30.0-36.0); Mean Corpuscular Hemoglobin 24.8 pg (28.0-34.0); Mean Corpuscular Volume 81.3 fL (81-99); Mean Platelet Volume 10.6 fL (7.4-10.4); Monocytes # 0.3 10^3/uL (0.2-0.9); Monocytes % 6.7 %; Neutrophils # 3.9 10^3/uL (1.8-7.7); Neutrophils % 78.4 %; Nucleated Red Blood Cells % 0 %; Platelet Count 171 10^3/cmm (130-400); Red Blood Count 4.16 10^6/uL (4.1-5.3); Red Cell Distribution Width 24.6 % (12.1-15.1)
[2019-06-18 05:58] LABS: Alanine Aminotransferase 29 U/L (0-33); Albumin Level 2.4 g/dL (3.5-5.2); Alkaline Phosphatase 135 IU/L (35-105); Chloride 98 mmol/L (98-107); Sodium 137 mmol/L (136-145)
[2019-06-18] MEDS: piperacillin-tazobactam 3.375 GM in sodium chloride 0.9% (plus) 50 ML IV ×2 (06:05→15:40)
[2019-06-18 06:22] LABS: Slide Review Slide Review Perform
[2019-06-18 07:00] LABS: Anion Gap 13.8 (5-19); Aspartate Amino Transferase 36 U/L (0-32); Blood Urea Nitrogen 14 mg/dL (8-23); Calcium 8.4 mg/dL (8.5-10.5); Carbon Dioxide 30 mmol/L (22-29); Globulin 3.8 g/dL (1.3-4.6); Glomerular Filtration Rate 100.3 mL/min (90-130); Glucose 91 mg/dL (65-115); Osmolality Calculated 280 mOsm/kg (285-295); Total Bilirubin 0.4 mg/dL (0.15-1.2); Total Protein 6.2 g/dL (6.6-8.7)
[2019-06-18] MEDS: dexamethasone 4 mg Tablet 2 MG PO ×2 (08:42→18:16)
[2019-06-18] MEDS: divalproex DR 250 mg Tablet PO ×2 (08:42→18:17)
[2019-06-18] MEDS: pantoprazole DR 40 mg Tablet PO (08:42)
[2019-06-18] MEDS: citalopram 20 mg Tablet PO (08:42)
[2019-06-18] MEDS: benzonatate 100 mg Capsule PO ×3 (08:42→21:15)
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
[2019-06-18] MEDS: HYDROcodone-acetaminophen 5-325 mg Tablet 1 TAB PO ×2 (10:45→21:26)
--- NOTE | 2019-06-18 12:46 | P.PN_ITS ---
Subjective Subjective: Interval history: No acute events overnight. Continues to do well. No hemoptysis On examination sitting comfortably in bed on room air saturating more than 94%. Denies of having any nausea, vomiting, shortness of breath more than her baseline. Seen by psychiatrist and as per the opinion patient is not able to make her own decisions at present. Vitals/I&O/Wt Last Vital Signs Temp 98.0 F 06/18/19 11:25 Pulse 80 06/18/19 11:25 Resp 19 H 06/18/19 11:25 BP 142/73 06/18/19 11:25 Pulse Ox 93 06/18/19 11:25 06/17/19 06/18/19 06/18/19 22:59 06:59 14:59 Intake Total 900 / 1620 50 / 1670 770 / 770 Output Total 400 / 400 50 / 50 Balance 900 / 1620 -350 / 1270 720 / 720 Physical Exam Narrative: EXAM NARRATIVE: General: No acute distress, AO x3 HEENT: PERRLA, pupils bilaterally equal and reactive Chest: Decreased air entry in the left middle and lower zone with occasional pleural rub and crackles, normal vesicular breath sounds on the right side. CVS: S1-S2 regular, no murmurs, no tachycardia, no gallops, no rubs Abdomen: Soft, nontender, no organomegaly, bowel sounds present Neuro: No focal deficits, no facial deformity, AO x3, power 5/5 in all limbs Data : 06/18/19 05:20 06/18/19 05:20 Micro: Microbiology 06/15/19 01:00 Gram Stain - Final Sputum - Expectorated Sputum Sputum Culture - Final A&P Assessment and plan (1) Postobstructive pneumonia: Status: Acute (2) Hemoptysis: Status: Acute (3) Lung cancer: Status: Acute Qualifiers: Laterality: left Lung location: upper lobe of lung Qualified Code(s): C34.12 - Malignant neoplasm of upper lobe, left bronchus or lung (4) SIADH (syndrome of inappropriate ADH production): Status: Acute (5) Liver cirrhosis: Status: Acute (6) Protein calorie malnutrition: Status: Acute Qualifiers: Protein-calorie malnutrition severity: moderate Qualified Code(s): E44.0 - Moderate protein-calorie malnutrition (7) Cluster A personality disorder: Status: Acute (8) Bipolar 1 disorder: Status: Chronic (9) Hypertrophic pulmonary osteoarthropathy: Status: Chronic Additional A&P Information Postobstructive pneumonia: Lung cancer undergoing radiation therapy. Procalcitonin borderline high, proBNP normal, no leukocytosis, continues to remain afebrile but CT imaging concerning for consolidation. Continue with vancomycin and Zosyn for postobstructive pneumonia. Will de- escalate antibiotics as per the culture results. As patient is improving pretty well today will be the last dose of treatment. Patient would have completed 5 days of treatment. COVID 19 test negative. Oxygen supplementation keeping saturation over 92%. Continue with home dose of DuoNeb's and budesonide. Tessalon Perles 200 3 times daily for cough along with Robitussin as needed every 6 hourly.. Hemoptysis: Most likely because of invasive adenocarcinoma. Discussed and reviewed the CT scan with Dr. Xavier from pulmonology. He states hemoptysis is most likely because of advanced disease and inflammation from palliative radiation therapy. He advises to continue the same treatment as currently. States there is no need of bronchoscopy for now. 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 Currently undergoing palliative radiation therapy status post 8 cycles. Continue home dose of [place] every 4 hours as needed. Hyponatremia: Resolved. Most likely SIADH as got worse as patient was on fluids. Cluster a personality disorder/bipolar Continue home dose of citalopram and divalproex. Protein calorie malnourishment: Low albumin 2.3, Tolerating full liquid diet well. Will advance her to regular diet with Ensure with each meals. Liver cirrhosis most likely secondary to hepatitis C without acute decompensation: Liver function stable. DVT prophylaxis: Hemoglobin stable. No massive hemoptysis. Continue with heparin 5000 q. 8 hourly. Bowel regimen. Full code Regular diet with Ensure. As per the consultation from Dr. Duong from psychiatry patient is not deemed in capacity to make her own decisions because of advanced bipolar disorder and metastasis to brain. The above opinion was discussed with son Mr. Bell and he states he would be the one who would be making the medical decisions for the patient. Discussed the same with the patient as well and she is for now agreeable for SNF placement. Son is of opinion that given the advanced disease along with metastasis to brain and his discussion with patient's PCP, oncologist and multiple providers in the past it would be best if patient goes with hospice care. Attestations Medical Necessity Statement*: Postobstructive pneumonia, advanced left-sided invasive adenocarcinoma with brain mets Time Spent in Patient Care: Greater than 35 minutes (>than 50% of time spent in counselling and/or direct pt care on unit) . Coding Level of Care Code Acute Crowning Hammer Operator for [facility] Fwd Diagnoses Postobstructive pneumonia J18.9 Hemoptysis R04.2 Lung cancer C34.12 Laterality: left Lung location: upper lobe of lung SIADH (syndrome of inappropriate ADH production) E22.2 Liver cirrhosis K74.60 Protein calorie malnutrition E44.0 Protein-calorie malnutrition severity: moderate Cluster A personality disorder F60.89 Bipolar 1 disorder F31.9 Hypertrophic pulmonary osteoarthropathy M89.40
[2019-06-18] MEDS: ipratropium-albuterol 3 mL Neb INHALATION ×2 (14:00→20:27)
[2019-06-18] MEDS: budesonide 0.5 mg/2 mL Neb INHALATION (20:27)
[2019-06-18 20:38] LABS: Vancomycin Trough 18.6 ug/mL (10-15)
[2019-06-18] MEDS: docusate sodium 100 mg Capsule PO (21:15)
[2019-06-18 21:45] LABS: Vancomycin Trough 16.1 ug/mL (10-15)
[2019-06-19] VITALS (14 sets, daily range): BP systolic 136–145; BP diastolic 63–80; PULSE 73–105; RESP 16–24; TEMP 36.4–36.7; O2SAT 93–99
[2019-06-19] MEDS: piperacillin-tazobactam 3.375 GM in sodium chloride 0.9% (plus) 50 ML IV ×3 (00:16→14:13)
[2019-06-19] MEDS: ipratropium-albuterol 3 mL Neb INHALATION ×4 (03:49→21:28)
[2019-06-19] MEDS: benzonatate 100 mg Capsule PO ×3 (08:09→20:29)
[2019-06-19] MEDS: HYDROcodone-acetaminophen 5-325 mg Tablet 1 TAB PO ×2 (08:09→20:30)
[2019-06-19] MEDS: divalproex DR 250 mg Tablet PO ×2 (08:09→17:32)
[2019-06-19] MEDS: pantoprazole DR 40 mg Tablet PO (08:10)
[2019-06-19] MEDS: dexamethasone 4 mg Tablet 2 MG PO ×2 (08:10→17:32)
[2019-06-19] MEDS: budesonide 0.5 mg/2 mL Neb INHALATION ×2 (10:12→21:28)
--- NOTE | 2019-06-19 10:55 | PC.SOCIAL ---
IMM Updated Page 2 of IMM updated and given to patient. Initialed, dated, and timed and placed in chart.
--- NOTE | 2019-06-19 11:51 | PM.PN ---
Subjective Subjective: Interval history: Evelyn relates no complaints. She still reports coughing up some substance on occasion with some blood streaks. Eating well. No headache. No nausea. Medications: Reviewed: Yes Vitals/I&O/Wt Last Vital Signs Temp 98.0 F 06/19/19 11:21 Pulse 95 06/19/19 11:21 Resp 18 06/19/19 11:21 BP 136/64 06/19/19 11:21 Pulse Ox 97 06/19/19 11:21 06/18/19 06/19/19 06/19/19 22:59 06:59 14:59 Intake Total 290 / 1060 540 / 1600 360 / 360 Output Total 300 / 350 300 / 650 Balance -10 / 710 240 / 950 360 / 360 Physical Exam Narrative: EXAM NARRATIVE: General exam is no apparent distress Cardiovascular regular rate and rhythm Lungs diminished breath sounds left, right clear Abdomen is soft with positive bowel sounds Extremities trace edema Data : 06/18/19 05:20 06/18/19 05:20 A&P Assessment and plan (1) Postobstructive pneumonia: Currently on vancomycin and Zosyn, approximately day #6 Status: Acute (2) Hemoptysis: Improved. Secondary to adenocarcinoma of the lung Status: Acute (3) Lung cancer: She is completed a course of radiation. She is now going on hospice. With likely brain metastasis. She previously refused MRI with contrast for confirmation but MRI without contrast suggested this. Decadron secondary to brain pathology with edema Status: Acute Qualifiers: Laterality: left Lung location: upper lobe of lung Qualified Code(s): C34.12 - Malignant neoplasm of upper lobe, left bronchus or lung (4) SIADH (syndrome of inappropriate ADH production): Improved Status: Acute (5) Liver cirrhosis: Status: Acute (6) Protein calorie malnutrition: Status: Acute Qualifiers: Protein-calorie malnutrition severity: moderate Qualified Code(s): E44.0 - Moderate protein-calorie malnutrition (7) Cluster A personality disorder: Unchanged. Psychiatry has evaluated. Status: Acute (8) Bipolar 1 disorder: Unchanged. Psychiatry has evaluated. Son is currently making decisions as patient is not capable of this. Currently on Depakote Status: Chronic (9) Hypertrophic pulmonary osteoarthropathy: Status: Chronic Additional A&P Information Protein calorie malnutrition. Ensure added to meals Full code Heparin subcutaneous for DVT prophylaxis As per the consultation from Dr. Duong from psychiatry patient is not deemed in capacity to make her own decisions because of advanced bipolar disorder and metastasis to brain. The above opinion was discussed with son Mr. Bell and he states he would be the one who would be making the medical decisions for the patient. Son is of opinion that given the advanced disease along with metastasis to brain and his discussion with patient's PCP, oncologist and multiple providers in the past it would be best if patient goes with hospice care. Attestations Medical Necessity Statement*: Needs continued hospitalization for IV antibiotics secondary to postobstructive pneumonia pending placement to nursing facility. Coding Level of Care Code Acute Educational Program Assistant for [facility] Fw Diagnoses Postobstructive pneumonia J18.9 Hemoptysis R04.2 Lung cancer C34.12 Laterality: left Lung location: upper lobe of lung SIADH (syndrome of inappropriate ADH production) E22.2 Liver cirrhosis K74.60 Protein calorie malnutrition E44.0 Protein-calorie malnutrition severity: moderate Cluster A personality disorder F60.89 Bipolar 1 disorder F31.9 Hypertrophic pulmonary osteoarthropathy M89.40
--- NOTE | 2019-06-19 14:59 | PC.RESP ---
Pulmonary Rehab information given to patient.
[2019-06-19] MEDS: docusate sodium 100 mg Capsule PO (20:29)
[2019-06-20] VITALS (14 sets, daily range): BP systolic 115–150; BP diastolic 57–78; PULSE 75–110; RESP 18–24; TEMP 36.5–36.9; O2SAT 92–98
[2019-06-20] MEDS: piperacillin-tazobactam 3.375 GM in sodium chloride 0.9% (plus) 50 ML IV ×4 (00:19→23:33)
[2019-06-20] MEDS: ipratropium-albuterol 3 mL Neb INHALATION ×4 (03:55→20:44)
[2019-06-20] MEDS: HYDROcodone-acetaminophen 5-325 mg Tablet 1 TAB PO ×2 (08:52→15:55)
[2019-06-20] MEDS: dexamethasone 4 mg Tablet 2 MG PO ×2 (08:55→18:11)
[2019-06-20] MEDS: benzonatate 100 mg Capsule PO ×3 (08:55→21:46)
[2019-06-20] MEDS: divalproex DR 250 mg Tablet PO ×2 (08:56→18:11)
[2019-06-20] MEDS: pantoprazole DR 40 mg Tablet PO (08:56)
--- NOTE | 2019-06-20 09:14 | P.PN_ITS ---
Subjective Subjective: Interval history: Helen reports she is in pain all over and needs a hydrocodone. Otherwise breathing is about the same. Switches from subject to subject during our interview. Medications: Reviewed: Yes Vitals/I&O/Wt Last Vital Signs Temp 98.5 F 06/20/19 07:52 Pulse 85 06/20/19 07:52 Resp 18 06/20/19 07:52 BP 150/76 06/20/19 07:52 Pulse Ox 95 06/20/19 07:52 06/19/19 06/20/19 06/20/19 22:59 06:59 14:59 Intake Total 290 / 950 50 / 1000 480 / 480 Output Total 700 / 700 Balance -410 / 250 50 / 300 480 / 480 Physical Exam Narrative: EXAM NARRATIVE: General exam is no apparent distress Cardiovascular regular rate and rhythm Lungs diminished breath sounds left, right clear Abdomen is soft with positive bowel sounds Extremities trace edema Data : 06/18/19 05:20 06/18/19 05:20 Micro: Microbiology 06/14/19 22:59 Blood Culture - Final Blood NO GROWTH AFTER 5 DAYS 06/14/19 22:55 Blood Culture - Final Blood NO GROWTH AFTER 5 DAYS A&P Assessment and plan (1) Postobstructive pneumonia: Currently on vancomycin and Zosyn, approximately day #7 Status: Acute (2) Hemoptysis: Improved. Secondary to adenocarcinoma of the lung Status: Acute (3) Lung cancer: She is completed a course of radiation. She is now going on hospice. With likely brain metastasis. She previously refused MRI with contrast for con firmation but MRI without contrast suggested this. Decadron secondary to brain pathology with edema Status: Acute Qualifiers: Laterality: left Lung location: upper lobe of lung Qualified Code(s): C34.12 - Malignant neoplasm of upper lobe, left bronchus or lung (4) SIADH (syndrome of inappropriate ADH production): Improved Status: Acute (5) Liver cirrhosis: Status: Acute (6) Protein calorie malnutrition: Status: Acute Qualifiers: Protein-calorie malnutrition severity: moderate Qualified Code(s): E44.0 - Moderate protein-calorie malnutrition (7) Cluster A personality disorder: Unchanged. Psychiatry has evaluated. Status: Acute (8) Bipolar 1 disorder: Unchanged. Psychiatry has evaluated. Son is currently making decisions as patient is not capable of this. Currently on Depakote Status: Chronic (9) Hypertrophic pulmonary osteoarthropathy: Status: Chronic Additional A&P Information Protein calorie malnutrition. Ensure added to meals Full code Heparin subcutaneous for DVT prophylaxis As per the consultation from Dr. Duong from psychiatry patient is not deemed in capacity to make her own decisions because of advanced bipolar disorder and metastasis to brain. The above opinion was discussed with son Mr. Bell and he states he would be the one who would be making the medical decisions for the patient. Son is of opinion that given the advanced disease along with metastasis to brain and his discussion with patient's PCP, oncologist and multiple providers in the past it would be best if patient goes with hospice care. Discharge planning is trying to arrange for this but patient has been resistant, wanting to go back to the hotel she was staying at before. Attestations Medical Necessity Statement*: Needs continued hospital stay for IV antibiotics secondary to postobstructive pneumonia, pending placement. Coding Level of Care Code Acute Central Scheduler for [facility] Fwd Diagnoses Postobstructive pneumonia J18.9 Hemoptysis R04.2 Lung cancer C34.12 Laterality: left Lung location: upper lobe of lung SIADH (syndrome of inappropriate ADH production) E22.2 Liver cirrhosis K74.60 Protein calorie malnutrition E44.0 Protein-calorie malnutrition severity: moderate Cluster A personality disorder F60.89 Bipolar 1 disorder F31.9 Hypertrophic pulmonary osteoarthropathy M89.40
[2019-06-20] MEDS: budesonide 0.5 mg/2 mL Neb INHALATION ×2 (09:25→20:44)
[2019-06-20 10:59] LABS: Vancomycin Trough 19.6 ug/mL (10-15)
[2019-06-20] MEDS: docusate sodium 100 mg Capsule PO (21:46)
[2019-06-21] VITALS (16 sets, daily range): BP systolic 130–148; BP diastolic 65–78; PULSE 75–110; RESP 16–20; TEMP 36.6–37; O2SAT 94–98
[2019-06-21] MEDS: HYDROcodone-acetaminophen 5-325 mg Tablet 1 TAB PO (01:17)
[2019-06-21] MEDS: vancomycin 1,000 MG in sodium chloride 0.9% 250 ML 250 MG IV ×2 (01:22→12:35)
[2019-06-21] MEDS: ipratropium-albuterol 3 mL Neb INHALATION ×4 (02:30→21:47)
[2019-06-21 05:42] LABS: Basophils % 0.2 %; Eosinophils % 0.2 %; Hematocrit 34.3 % (37.0-47.0); Hemoglobin 10.4 g/dL (11.5-15.3); Lymphocytes % 16.6 %; Mean Corpuscular HGB Conc 30.3 g/dL (30.0-36.0); Mean Corpuscular Hemoglobin 25.6 pg (28.0-34.0); Mean Corpuscular Volume 84.5 fL (81-99); Monocytes # 0.4 10^3/uL (0.2-0.9); Monocytes % 6.3 %; Neutrophils # 4.4 10^3/uL (1.8-7.7); Neutrophils % 76.2 %; Nucleated Red Blood Cells % 0 %; Platelet Count 155 10^3/cmm (130-400); Red Blood Count 4.06 10^6/uL (4.1-5.3); Red Cell Distribution Width 25.2 % (12.1-15.1); White Blood Count 5.8 10^3/uL (4.0-10.0)
[2019-06-21 06:15] LABS: Anion Gap 13.2 (5-19); Blood Urea Nitrogen 13 mg/dL (8-23); Calcium 8.2 mg/dL (8.5-10.5); Carbon Dioxide 29 mmol/L (22-29); Chloride 100 mmol/L (98-107); Glomerular Filtration Rate 100.3 mL/min (90-130); Glucose 92 mg/dL (65-115); Osmolality Calculated 282 mOsm/kg (285-295); Potassium 4.2 mmol/L (3.5-5.1); Sodium 138 mmol/L (136-145)
[2019-06-21 06:43] LABS: Slide Review Slide Review Perform
[2019-06-21] MEDS: piperacillin-tazobactam 3.375 GM in sodium chloride 0.9% (plus) 50 ML IV ×2 (08:35→16:11)
[2019-06-21] MEDS: benzonatate 100 mg Capsule PO ×3 (08:36→20:45)
[2019-06-21] MEDS: dexamethasone 4 mg Tablet 2 MG PO ×2 (08:36→17:32)
[2019-06-21] MEDS: divalproex DR 250 mg Tablet PO ×2 (08:36→17:32)
[2019-06-21] MEDS: pantoprazole DR 40 mg Tablet PO (08:36)
[2019-06-21] MEDS: budesonide 0.5 mg/2 mL Neb INHALATION ×2 (09:00→21:47)
--- NOTE | 2019-06-21 12:22 | P.PN_ITS ---
Subjective Subjective: Interval history: Evelyn is upset that she cannot go to [employer]. She really wants some reading glasses. She states she is in significant pain. Medications: Reviewed: Yes Vitals/I&O/Wt Last Vital Signs Temp 98.0 F 06/21/19 11:34 Pulse 106 H 06/21/19 11:34 Resp 20 H 06/21/19 11:34 BP 132/70 06/21/19 11:34 Pulse Ox 96 06/21/19 11:34 06/20/19 06/21/19 06/21/19 22:59 06:59 14:59 Intake Total 100 / 1070 770 / 1840 Output Total 300 / 300 Balance 100 / 1070 470 / 1540 Physical Exam Narrative: EXAM NARRATIVE: General exam is no apparent distress Cardiovascular regular rate and rhythm Lungs diminished breath sounds left, right clear Abdomen is soft with positive bowel sounds Extremities trace edema Data : 06/21/19 04:47 06/21/19 04:47 A&P Assessment and plan (1) Postobstructive pneumonia: Currently on vancomycin and Zosyn, approximately day #8 Status: Acute (2) Hemoptysis: Improved. Secondary to adenocarcinoma of the lung Status: Acute (3) Lung cancer: She is completed a course of radiation. She is now going on hospice. With likely brain metastasis. She previously refused MRI with contrast for confirmation but MRI without contrast suggested this. Decadron secondary to brain pathology with edema Status: Acute Qualifiers: Laterality: left Lung location: upper lobe of lung Qualified Code(s): C34.12 - Malignant neoplasm of upper lobe, left bronchus or lung (4) SIADH (syndrome of inappropriate ADH production): Improved Status: Acute (5) Liver cirrhosis: Status: Acute (6) Protein calorie malnutrition: Status: Acute Qualifiers: Protein-calorie malnutrition severity: moderate Qualified Code(s): E44.0 - Moderate protein-calorie malnutrition (7) Cluster A personality disorder: Unchanged. Psychiatry has evaluated. Status: Acute (8) Bipolar 1 disorder: Unchanged. Psychiatry has evaluated. Son is currently making decisions as patient is not capable of this. Currently on Depakote Status: Chronic (9) Hypertrophic pulmonary osteoarthropathy: Status: Chronic Additional A&P Information Protein calorie malnutrition. Ensure added to meals Chronic pain. Hydrocodone added Full code Heparin subcutaneous for DVT prophylaxis As per the consultation from Dr. Duong from psychiatry patient is not deemed in capacity to make her own decisions because of advanced bipolar diso rder and metastasis to brain. The above opinion was discussed with son Mr. Bell and he states he would be the one who would be making the medical decisions for the patient. Son is of opinion that given the advanced disease along with metastasis to brain and his discussion with patient's PCP, oncologist and multiple providers in the past it would be best if patient goes with hospice care. Discharge planning is trying to arrange for this but patient has been resistant, wanting to go back to the hotel she was staying at before. Attestations Medical Necessity Statement*: Needs continued hospitalization for IV antibiotics for postobstructive pneumonitis pending placement. 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
[2019-06-21] MEDS: oxyCODONE 5 mg IR Tab/Cap PO ×2 (13:01→20:45)
--- NOTE | 2019-06-21 15:03 | PC.SOCIAL ---
IM initialed explained and copy provided. No questions
[2019-06-21] MEDS: docusate sodium 100 mg Capsule PO (20:45)
[2019-06-22] VITALS (18 sets, daily range): BP systolic 115–137; BP diastolic 64–86; PULSE 79–113; RESP 17–22; TEMP 36.6–36.9; O2SAT 91–98
[2019-06-22] MEDS: vancomycin 1,000 MG in sodium chloride 0.9% 250 ML 250 MG IV ×2 (02:19→15:24)
[2019-06-22] MEDS: ipratropium-albuterol 3 mL Neb INHALATION ×4 (02:55→19:30)
[2019-06-22] MEDS: oxyCODONE 5 mg IR Tab/Cap PO ×4 (03:22→21:34)
[2019-06-22] MEDS: budesonide 0.5 mg/2 mL Neb INHALATION ×2 (08:44→19:30)
[2019-06-22] MEDS: piperacillin-tazobactam 3.375 GM in sodium chloride 0.9% (plus) 50 ML IV ×3 (09:15→16:38)
[2019-06-22] MEDS: dexamethasone 4 mg Tablet 2 MG PO ×2 (09:17→17:26)
[2019-06-22] MEDS: divalproex DR 250 mg Tablet PO ×2 (09:17→17:26)
[2019-06-22] MEDS: pantoprazole DR 40 mg Tablet PO (09:17)
[2019-06-22] MEDS: benzonatate 100 mg Capsule PO ×3 (09:17→21:34)
--- NOTE | 2019-06-22 11:39 | P.PN_ITS ---
Subjective Subjective: Interval history: Evelyn reports she is doing little bit better today. Got some reading glasses. Pain is under better control. Medications: Reviewed: Yes Vitals/I&O/Wt Last Vital Signs Temp 97.8 F 06/22/19 08:00 Pulse 95 06/22/19 08:48 Resp 18 06/22/19 09:16 BP 137/75 06/22/19 08:00 Pulse Ox 94 06/22/19 09:16 06/21/19 06/22/19 06/22/19 22:59 06:59 14:59 Intake Total 410 / 950 530 / 1480 240 / 240 Output Total 200 / 200 600 / 800 Balance 210 / 750 -70 / 680 240 / 240 Physical Exam Narrative: EXAM NARRATIVE: General exam is no apparent distress Cardiovascular regular rate and rhythm Lungs diminished breath sounds left, right clear Abdomen is soft with positive bowel sounds Extremities trace edema Data : 06/21/19 04:47 06/21/19 04:47 A&P Assessment and plan (1) Postobstructive pneumonia: Currently on vancomycin and Zosyn, approximately day #9. Will likely discontinue this after dosing tomorrow. Status: Acute (2) Hemoptysis: Improved. Secondary to adenocarcinoma of the lung Status: Acute (3) Lung cancer: She is completed a course of radiation. She is now going on hospice. With likely brain metastasis. She previously refused MRI with contrast for confirmation but MRI without contrast suggested this. Decadron secondary to brain pathology with edema Status: Acute Qualifiers: Laterality: left Lung location: upper lobe of lung Qualified Code(s): C34.12 - Malignant neoplasm of upper lobe, left bronchus or lung (4) SIADH (syndrome of inappropriate ADH production): Improved Status: Acute (5) Liver cirrhosis: Status: Acute (6) Protein calorie malnutrition: Status: Acute Qualifiers: Protein-calorie malnutrition severity: moderate Qualified Code(s): E44.0 - Moderate protein-calorie malnutrition (7) Cluster A personality disorder: Unchanged. Psychiatry has evaluated. Status: Acute (8) Bipolar 1 disorder: Unchanged. Psychiatry has evaluated. Son is currently making decisions as patient is not capable of this. Currently on Depakote Status: Chronic (9) Hypertrophic pulmonary osteoarthropathy: Status: Chronic Additional A&P Information Protein calorie malnutrition. Ensure added to meals Chronic pain. Hydrocodone added Full code Heparin subcutaneous for DVT prophylaxis As per the consultation from Dr. Duong from psychiatry patient is not deemed in capacity to make her own decisions because of advanced bipolar disorder and metastasis to brain. The above opinion was discussed with son Mr. Bell and he states he would be the one who would be making the medical decisions for the patient. Son is of opinion that given the advanced disease along with metastasis to brain and his discussion with patient's PCP, oncologist and multiple providers in the past it would be best if patient goes with hospice care. Discharge planning is trying to arrange for this but patient has been resistant, wanting to go back to the hotel she was staying at before. Attestations Medical Necessity Statement*: Needs continued hospitalization for IV antibiotics pending placement. 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
[2019-06-22 11:50] LABS: Vancomycin Trough 17.4 ug/mL (10-15)
[2019-06-22] MEDS: docusate sodium 100 mg Capsule PO (21:34)
[2019-06-23] VITALS (19 sets, daily range): BP systolic 116–131; BP diastolic 58–77; PULSE 81–114; RESP 17–22; TEMP 36.4–37.2; O2SAT 91–97
--- NOTE | 2019-06-23 00:10 | PC.NURSE ---
IV pt's IV infiltrated. this nurse informed pt that she would need to be stuck again to be able to obtain her antibiotics. pt agreed. this nurse began looking for IV access, but pt requested to be stuck in her left AC space. this nurse informed pt that she previously had an IV in that space on that went bad and she had already been stuck above it. Pt also informed that an IV in the AC space would cause the IV pump to beep any time she bent her arm. pt refused this nurse to look on the right arm or stick anywhere else on the left side. pt stated, I used to shoot heroin for 10 months so I know my body and my veins. You are not sticking me anywhere other than right here, as she pointed to the middle of her AC space. This nurse looked where pt was pointing to, however pt did not have any viable veins for IV access. This nurse informed pt that another nurse would be in to look at her to see if she can get an IV where pt was requesting. supervisor mold yard was called to assess IV space.
--- NOTE | 2019-06-23 01:03 | PC.NURSE ---
Pt refusing IV at this time. She pointed out a specific vein on her left arm & she said she would allow me to stick only that particular vein. She had a tissue folded & placed over that specific area. When I removed the tissue to look at the vein she became irate with me, yelling at me, told me to get the hell out & we could all go suck a big donkey laurent!
[2019-06-23] MEDS: oxyCODONE 5 mg IR Tab/Cap PO ×5 (01:40→20:22)
[2019-06-23] MEDS: ipratropium-albuterol 3 mL Neb INHALATION ×4 (01:59→20:34)
[2019-06-23] MEDS: lanolin oint 7 gm 1 APPLIC TOPICAL (04:11)
--- NOTE | 2019-06-23 05:50 | PC.NURSE ---
pt raising herself back in bed after sitting in side of bed, dangling feet. pt hateful with this nurse stating, It's your fault my legs are this big. pt has been moving herself around all noc without help of staff. pt began growling at this nurse when she was told she was able to raise her legs up into bed herself.
--- NOTE | 2019-06-23 08:02 | PC.NURSE ---
This nurse talked to patient about getting an IV along with education as to why she needs the IV for medication. Patient stated that we will not be doing an IV on her and we will not be sticking her with any needles. She just wants to leave and an IV will hold her back from being discharged.
[2019-06-23] MEDS: budesonide 0.5 mg/2 mL Neb INHALATION ×2 (08:03→20:34)
[2019-06-23] MEDS: pantoprazole DR 40 mg Tablet PO (09:08)
[2019-06-23] MEDS: divalproex DR 250 mg Tablet PO ×2 (09:08→17:53)
[2019-06-23] MEDS: dexamethasone 4 mg Tablet 2 MG PO ×2 (09:08→17:53)
[2019-06-23] MEDS: benzonatate 100 mg Capsule PO ×3 (09:08→20:21)
--- NOTE | 2019-06-23 10:07 | P.PN_ITS ---
Subjective Subjective: Interval history: Evelyn reports she is not allowing any more IVs. Medications: Reviewed: Yes Vitals/I&O/Wt Last Vital Signs Temp 97.6 F 06/23/19 08:00 Pulse 84 06/23/19 08:16 Resp 22 H 06/23/19 08:05 BP 116/62 06/23/19 08:00 Pulse Ox 91 06/23/19 08:05 06/22/19 06/23/19 06/23/19 22:59 06:59 14:59 Intake Total 290 / 820 240 / 240 Output Total 100 / 100 350 / 450 Balance 190 / 720 -350 / 370 240 / 240 Physical Exam Narrative: EXAM NARRATIVE: General exam is no apparent distress Cardiovascular regular rate and rhythm Lungs diminished breath sounds left, right clear Abdomen is soft with positive bowel sounds Extremities 1+ edema Data : 06/21/19 04:47 06/21/19 04:47 A&P Assessment and plan (1) Postobstructive pneumonia: Was on vancomycin and Zosyn. Received 9 days of therapy. Lost IV today and she refuses to allow any replacement. At this point therapy will be discontinued. Status: Acute (2) Hemoptysis: Improved. Secondary to adenocarcinoma of the lung Status: Acute (3) Lung cancer: She is completed a course of radiation. She is now going on hospice on discharge from the hospital With likely brain metastasis. She previously refused MRI with contrast for confirmation but MRI without contrast suggested this. Decadron secondary to brain pathology with edema Status: Acute Qualifiers: Laterality: left Lung location: upper lobe of lung Qualified Code(s): C34.12 - Malignant neoplasm of upper lobe, left bronchus or lung (4) SIADH (syndrome of inappropriate ADH production): Improved Status: Acute (5) Liver cirrhosis: Status: Acute (6) Protein calorie malnutrition: Status: Acute Qualifiers: Protein-calorie malnutrition severity: moderate Qualified Code(s): E44.0 - Moderate protein-calorie malnutrition (7) Cluster A personality disorder: Unchanged. Psychiatry has evaluated. Status: Acute (8) Bipolar 1 disorder: Unchanged. Psychiatry has evaluated. Son is currently making decisions as patient is not capable of this. Currently on Depakote Status: Chronic (9) Hypertrophic pulmonary osteoarthropathy: Status: Chronic Additional A&P Information Protein calorie malnutrition. Ensure added to meals Chronic pain. Hydrocodone added Full code Heparin subcutaneous for DVT prophylaxis As per the consultation from Dr. Duong from psychiatry patient is not deemed in capacity to make her own decisions because of advanced bipolar disorder and metastasis to brain. The above opinion was discussed with son Mr. Bell and he states he would be the one who would be making the medical decisions for the patient. Son is of opinion that given the advanced disease along with metastasis to brain and his discussion with patient's PCP, oncologist and multiple providers in the past it would be best if patient goes with hospice care. Discharge planning is trying to arrange for this but patient has been resistant, wanting to go back to the hotel she was staying at before. Guardianship is needed, and this process has been initiated. Attestations Medical Necessity Statement*: Needs continued hospitalization until placement can be arranged. 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
--- NOTE | 2019-06-23 11:46 | PC.SOCIAL ---
*IMM* Updated patient on IMM
[2019-06-23] MEDS: docusate sodium 100 mg Capsule PO (20:21)
[2019-06-24] VITALS (14 sets, daily range): BP systolic 116–147; BP diastolic 68–83; PULSE 82–126; RESP 18–22; TEMP 36.6–36.9; O2SAT 94–97
[2019-06-24] MEDS: ipratropium-albuterol 3 mL Neb INHALATION ×3 (03:04→20:44)
[2019-06-24] MEDS: oxyCODONE 5 mg IR Tab/Cap PO ×4 (03:38→16:44)
[2019-06-24] MEDS: divalproex DR 250 mg Tablet PO ×2 (08:24→17:53)
[2019-06-24] MEDS: dexamethasone 4 mg Tablet 2 MG PO (08:24)
[2019-06-24] MEDS: benzonatate 100 mg Capsule PO ×3 (08:24→23:08)
[2019-06-24] MEDS: pantoprazole DR 40 mg Tablet PO (08:24)
[2019-06-24] MEDS: budesonide 0.5 mg/2 mL Neb INHALATION ×2 (09:35→20:44)
--- NOTE | 2019-06-24 14:25 | PC.NURSE ---
scream Pt is in room screaming saying she wants to talk with her son and that she was suppose to leave 10 days ago and she was trying to get ahold of her niece.We tried to calm pt down with no results. The confidential secretary called son but he was at work and hung up the phone when she said to see if he would call her when he got the time.
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
--- NOTE | 2019-06-24 17:21 | PC.NURSE ---
refused Pt refusing to have CT and refusing her Haldol. Pt stated that I have screwed up her whole world by tell her that she was to have Haldol and a CT. Pt screaming as I left the room.
[2019-06-24] MEDS: dexamethasone 4 mg Tablet 1 MG PO (17:51)
--- NOTE | 2019-06-24 19:52 | PC.NURSE ---
Patient yelled at me and the nurse to go away, refusing to go to CT scan and to get her vital signs to be checked. Nurse been notified.
[2019-06-24] MEDS: docusate sodium 100 mg Capsule PO (23:08)
[2019-06-25] VITALS (13 sets, daily range): BP systolic 115–137; BP diastolic 65–73; PULSE 73–129; RESP 16–24; TEMP 36.7–37.1; O2SAT 92–96
[2019-06-25] MEDS: ipratropium-albuterol 3 mL Neb INHALATION ×2 (02:39→20:14)
--- NOTE | 2019-06-25 05:26 | PC.NURSE ---
Agitated This nurse and SUPERINTENDENT MARINE OIL TERMINAL changed patient's soiled bedding, patient got very agitated. Patient yelled and was not happy having the bedding changed but also did not want to be in the wet bedding anymore. Patient's bedding was changed and she calmed down some before we left the room.
[2019-06-25] MEDS: oxyCODONE 5 mg IR Tab/Cap PO ×4 (05:36→21:41)
[2019-06-25] MEDS: benzonatate 100 mg Capsule PO ×3 (07:50→20:20)
[2019-06-25] MEDS: divalproex DR 250 mg Tablet PO ×2 (07:50→16:50)
[2019-06-25] MEDS: dexamethasone 4 mg Tablet 1 MG PO ×2 (07:51→16:50)
[2019-06-25] MEDS: pantoprazole DR 40 mg Tablet PO (07:51)
--- NOTE | 2019-06-25 10:49 | PC.SOCIAL ---
IMM Update Not Given Updated page 2 of IMM not given to patient as we are currently seeking guardianship at this time.
--- NOTE | 2019-06-25 16:20 | PM.PN ---
Subjective Subjective: Interval history: Unchanged with regards to aggressive behavior, did not wish to talk. Medications: Reviewed: Yes Vitals/I&O/Wt Last Vital Signs Temp 98.3 F 06/25/19 07:47 Pulse 121 H 06/25/19 15:50 Resp 22 H 06/25/19 15:50 BP 137/71 06/25/19 15:50 Pulse Ox 92 06/25/19 15:50 06/25/19 06/25/19 06/25/19 06:59 14:59 22:59 Intake Total 150 / 150 Output Total 320 / 1620 Balance -320 / -904 150 / 150 Physical Exam Narrative: EXAM NARRATIVE: Patient did not permit, threatened assault Data : 06/21/19 04:47 06/21/19 04:47 A&P Assessment and plan (1) Postobstructive pneumonia: Was on vancomycin and Zosyn. Received 9 days of therapy for post obstructive pneumonia. Completed course Status: Acute (2) Hemoptysis: Improved. Secondary to adenocarcinoma of the lung Status: Acute (3) Lung cancer: She is completed a course of radiation. She is now going on hospice on discharge from the hospital With likely brain metastasis. She previously refused MRI with contrast for confirmation but MRI without contrast suggested this. Refused CT head to assess brain lesions Decadron secondary to brain pathology with edema. Reduce dose to 1 mg BID as may be contributing to psychosis Status: Acute Qualifiers: Laterality: left Lung location: upper lobe of lung Qualified Code(s): C34.12 - Malignant neoplasm of upper lobe, left bronchus or lung (4) SIADH (syndrome of inappropriate ADH production): Improved Status: Acute (5) Liver cirrhosis: Status: Acute (6) Protein calorie malnutrition: Status: Acute Qualifiers: Protein-calorie malnutrition severity: moderate Qualified Code(s): E44.0 - Moderate protein-calorie malnutrition (7) Cluster A personality disorder: Unchanged. Psychiatry has evaluated. Status: Acute (8) Bipolar 1 disorder: Unchanged. Psychiatry has evaluated. Son is currently making decisions as patient is not capable of this. Currently on Depakote- increase dose to 500mg BID. Per review of previous psych notes, may be increased to up to 100mg daily dosing. However, patient has been refusing blood draws so we may not have an accurate assessment of levels. On the other hand, if it does indeed help calm her, she may be more amenbale to discussions regarding lab draws. Status: Chronic (9) Hypertrophic pulmonary osteoarthropathy: Status: Chronic Additional A&P Information Protein calorie malnutrition. Ensure added to meals Chronic pain. Hydrocodone added Full code Heparin subcutaneous for DVT prophylaxis As per the consultation from from psychiatry patient is not deemed in capacity to make her own decisions because of advanced bipolar disorder and metastasis to brain. The above opinion was discussed with son Mr. Bell and he states he be the one who would be making the medical decisions for the patient. However i have been unable to reach him today to discuss code status. Patient continue so be full code in the system, which appears to be inconsistent with hospice/palliative route. Son is of opinion that given the advanced disease along with metastasis to brain and his discussion with patient's PCP, oncologist and multiple providers in the past it would be best if patient goes with hospice care. Discharge planning is trying to arrange for this but patient has been resistant, wanting to go back to the hotel she was staying at before. Guardianship is needed, and this process has been initiated. Unable to reach son in spite of multiple attempts Attestations Medical Necessity Statement*: discharge planning, guardianship Coding Level of Care Code Acute Hand Woven Carpet And Rug Mender for Chg Fwd Diagnoses Postobstructive pneumonia J18.9 Hemoptysis R04.2 Lung cancer C34.12 Laterality: left Lung location: upper lobe of lung SIADH (syndrome of inappropriate ADH production) E22.2 Liver cirrhosis K74.60 Protein calorie malnutrition E44.0 Protein-calorie malnutrition severity: moderate Cluster A personality disorder F60.89 Bipolar 1 disorder F31.9 Hypertrophic pulmonary osteoarthropathy M89.40
[2019-06-25] MEDS: docusate sodium 100 mg Capsule PO (20:20)
[2019-06-26] VITALS (15 sets, daily range): BP systolic 103–149; BP diastolic 59–87; PULSE 82–115; RESP 18–24; TEMP 36.1–37.1; O2SAT 91–97
--- NOTE | 2019-06-26 02:27 | PC.NURSE ---
Patient has wet sheets on her bed. I have tried twice to help patient get them changed and patient pells and cusses at me and kicks me out of the room. Will continue to try through the shift.
[2019-06-26] MEDS: ipratropium-albuterol 3 mL Neb INHALATION ×3 (03:22→20:43)
[2019-06-26] MEDS: oxyCODONE 5 mg IR Tab/Cap PO ×4 (04:20→20:08)
[2019-06-26] MEDS: benzonatate 100 mg Capsule PO ×3 (08:31→20:08)
[2019-06-26] MEDS: divalproex DR 250 mg Tablet 500 MG PO ×2 (08:31→17:03)
[2019-06-26] MEDS: metoprolol tartrate 25 mg Tablet 12.5 MG PO (08:33)
[2019-06-26] MEDS: budesonide 0.5 mg/2 mL Neb INHALATION ×2 (09:28→20:44)
--- NOTE | 2019-06-26 10:16 | PC.NURSE ---
Patient refused to have shower or bedbath. Patient has urinated on bed, refused to let staff attend to her needs. Patient verbally abusive, telling staff to fuck off, leave me alone. Don't come back. I know I stink. Don't touch me patient becomes agitated at any attempt for care.
[2019-06-26] MEDS: dexamethasone 4 mg Tablet 1 MG PO ×2 (11:01→17:03)
[2019-06-26] MEDS: pantoprazole DR 40 mg Tablet PO (11:02)
--- NOTE | 2019-06-26 14:52 | PM.PN ---
Subjective Subjective: Interval history: mood continues to be labile, calm when approached from a distance, however becomes agitated on drawing closer to talk or exam Medications: Reviewed: Yes Vitals/I&O/Wt Last Vital Signs Temp 97 F L 06/26/19 12:08 Pulse 82 06/26/19 12:08 Resp 20 H 06/26/19 12:08 BP 144/62 06/26/19 12:08 Pulse Ox 97 06/26/19 12:08 06/25/19 06/26/19 06/26/19 22:59 06:59 14:59 Intake Total 360 / 510 480 / 990 Balance 360 / 510 480 / 990 Physical Exam Narrative: EXAM NARRATIVE: GEN: Awake, alert, no acute distress Not cooperative for other examination Data : 06/21/19 04:47 06/21/19 04:47 A&P Assessment and plan (1) Postobstructive pneumonia: Was on vancomycin and Zosyn. Received 9 days of therapy for post obstructive pneumonia. Completed course Status: Acute (2) Hemoptysis: Improved. Secondary to adenocarcinoma of the lung Status: Acute (3) Lung cancer: She is completed a course of radiation. She is now going on hospice on discharge from the hospital With likely brain metastasis. She previously refused MRI with contrast for confirmation but MRI without contrast suggested this. Refused CT head to assess brain lesions Decadron secondary to brain pathology with edema. Reduce dose to 1 mg BID as may be contributing to psychosis. No overt mental status changes with reduction Status: Acute Qualifiers: Laterality: left Lung location: upper lobe of lung Qualified Code(s): C34.12 - Malignant neoplasm of upper lobe, left bronchus or lung (4) SIADH (syndrome of inappropriate ADH production): Improved Status: Acute (5) Liver cirrhosis: Status: Acute (6) Protein calorie malnutrition: Status: Acute Qualifiers: Protein-calorie malnutrition severity: moderate Qualified Code(s): E44.0 - Moderate protein-calorie malnutrition (7) Cluster A personality disorder: Unchanged. Psychiatry has evaluated. Status: Acute (8) Bipolar 1 disorder: Unchanged. Psychiatry has evaluated. Son is currently making decisions as patient is not capable of this. Currently on Depakote- increased dose to 500mg BID. Per review of previous psych notes, may be increased to up to 1000mg daily dosing. However, patient has been refusing blood draws so we may not have an accurate assessment of levels. On the other hand, if it does indeed help calm her, she may be more amenbale to discussions regarding lab draws. Status: Chronic (9) Hypertrophic pulmonary osteoarthropathy: Status: Chronic Additional A&P Information Full code Heparin subcutaneous for DVT prophylaxis As per the consultation from from psychiatry patient is not deemed in capacity to make her own decisions because of advanced bipolar disorder and metastasis to brain. The above opinion was discussed with son Mr. Bell and he states he be the one who would be making the medical decisions for the patient. However i have been unable to reach him in spite of multiple attempts to discuss code status. Son is of opinion that given the advanced disease along with metastasis to brain and his discussion with patient's PCP, oncologist and multiple providers in the past it would be best if patient goes with hospice care. Discharge planning is trying to arrange for this but patient has been resistant, wanting to go back to the hotel she was staying at before. Guardianship is needed, and this process has been initiated. Attestations Medical Necessity Statement*: awaiting placement, guardianship Coding Level of Care Code Acute Italian Lecturer for Chg Fwd Diagnoses Postobstructive pneumonia J18.9 Hemoptysis R04.2 Lung cancer C34.12 Laterality: left Lung location: upper lobe of lung SIADH (syndrome of inappropriate ADH production) E22.2 Liver cirrhosis K74.60 Protein calorie malnutrition E44.0 Protein-calorie malnutrition severity: moderate Cluster A personality disorder F60.89 Bipolar 1 disorder F31.9 Hypertrophic pulmonary osteoarthropathy M89.40
--- NOTE | 2019-06-26 17:11 | PC.NURSE ---
attempted to help patient with tray set and to remove noon lunch tray. patient became verbally abusing calling nurse zoey Zamorano and mother haseeb. She thew her trash in floor tore off gown. patient refused to dress.
[2019-06-26] MEDS: docusate sodium 100 mg Capsule PO (20:08)
[2019-06-27] VITALS (20 sets, daily range): BP systolic 98–127; BP diastolic 54–77; PULSE 91–120; RESP 14–32; TEMP 36.8–37.2; O2SAT 88–97
[2019-06-27] MEDS: oxyCODONE 5 mg IR Tab/Cap PO ×6 (00:20→23:23)
[2019-06-27] MEDS: ipratropium-albuterol 3 mL Neb INHALATION ×4 (02:33→20:19)
[2019-06-27] MEDS: pantoprazole DR 40 mg Tablet PO (09:57)
[2019-06-27] MEDS: divalproex DR 250 mg Tablet 500 MG PO ×2 (09:57→17:47)
[2019-06-27] MEDS: metoprolol tartrate 25 mg Tablet 12.5 MG PO (09:57)
[2019-06-27] MEDS: benzonatate 100 mg Capsule PO ×3 (09:57→20:43)
[2019-06-27] MEDS: budesonide 0.5 mg/2 mL Neb INHALATION ×2 (10:03→20:19)
[2019-06-27] MEDS: dexamethasone 4 mg Tablet 1 MG PO ×2 (10:10→17:47)
--- NOTE | 2019-06-27 13:36 | PC.SOCIAL ---
IMM Updated Updated pt on Pg 2 IMM. No questions voiced. Provided pt a copy & left on her bedside table. Signed, dated, & timed the copy in chart.
--- NOTE | 2019-06-27 16:36 | PM.PN ---
Subjective Subjective: Interval history: More calm today, less aggressive. Sitting comfortbaly in chair, chatting about multiple family members, talks fondly about son. No current physical complaints Medications: Reviewed: Yes Vitals/I&O/Wt Last Vital Signs Temp 98.3 F 06/27/19 15:38 Pulse 102 H 06/27/19 15:41 Resp 16 06/27/19 15:41 BP 98/56 06/27/19 15:38 Pulse Ox 94 06/27/19 15:41 06/27/19 06/27/19 06/27/19 06:59 14:59 22:59 Intake Total 240 / 480 480 / 480 Balance 240 / 480 480 / 480 Physical Exam Narrative: EXAM NARRATIVE: GEN: Awake, alert, no acute distress Not cooperative for other examination Data : 06/21/19 04:47 06/21/19 04:47 A&P Assessment and plan (1) Postobstructive pneumonia: Was on vancomycin and Zosyn. Received 9 days of therapy for post obstructive pneumonia. Completed course Status: Acute (2) Hemoptysis: Improved. Secondary to adenocarcinoma of the lung Status: Acute (3) Lung cancer: She is completed a course of radiation. She is now going on hospice on discharge from the hospital With likely brain metastasis. She previously refused MRI with contrast for confirmation but MRI without contrast suggested this. Refused CT head to assess brain lesions Decadron secondary to brain pathology with edema. Reduce dose to 1 mg BID as may be contributing to psychosis. No overt mental status changes with reduction Status: Acute Qualifiers: Laterality: left Lung location: upper lobe of lung Qualified Code(s): C34.12 - Malignant neoplasm of upper lobe, left bronchus or lung (4) SIADH (syndrome of inappropriate ADH production): Improved Status: Acute (5) Liver cirrhosis: Status: Acute (6) Protein calorie malnutrition: Status: Acute Qualifiers: Protein-calorie malnutrition severity: moderate Qualified Code(s): E44.0 - Moderate protein-calorie malnutrition (7) Cluster A personality disorder: Unchanged. Psychiatry has evaluated. Status: Acute (8) Bipolar 1 disorder: Unchanged. Psychiatry has evaluated. Son is currently making decisions as patient is not capable of this. Currently on Depakote- increased dose to 500mg BID. Per review of previous psych notes, may be increased to up to 1000mg daily dosing. However, patient has been refusing blood draws so we may not have an accurate assessment of levels. On the other hand, if it does indeed help calm her, she may be more amenbale to discussions regarding lab draws. Status: Chronic (9) Hypertrophic pulmonary osteoarthropathy: Status: Chronic Additional A&P Information Full code Heparin subcutaneous for DVT prophylaxis As per the consultation from from psychiatry patient is not deemed in capacity to make her own decisions because of advanced bipolar disorder and metastasis to brain. The above opinion was discussed with son Mr. Bell and he states he be the one who would be making the medical decisions for the patient. However i have been unable to reach him in spite of multiple attempts to discuss code status. Son is of opinion that given the advanced disease along with metastasis to brain and his discussion with patient's PCP, oncologist and multiple providers in the past it would be best if patient goes with hospice care. Discharge planning is trying to arrange for this but patient has been resistant, wanting to go back to the hotel she was staying at before. Guardianship is needed, and this process has been initiated. Attestations Medical Necessity Statement*: awaiting guardianship and disposition Coding Level of Care Code Acute Plastics Technician for Chg Fwd Diagnoses Postobstructive pneumonia J18.9 Hemoptysis R04.2 Lung cancer C34.12 Laterality: left Lung location: upper lobe of lung SIADH (syndrome of inappropriate ADH production) E22.2 Liver cirrhosis K74.60 Protein calorie malnutrition E44.0 Protein-calorie malnutrition severity: moderate Cluster A personality disorder F60.89 Bipolar 1 disorder F31.9 Hypertrophic pulmonary osteoarthropathy M89.40
--- NOTE | 2019-06-27 20:01 | PC.NURSE ---
PATIENT STATED FOR STAFF TO GET OUT OF HER ROOM AND REFUSED VITAL SIGNS AT 1999.
[2019-06-27] MEDS: docusate sodium 100 mg Capsule PO (20:43)
[2019-06-28] VITALS (17 sets, daily range): BP systolic 99–136; BP diastolic 58–68; PULSE 66–112; RESP 16–22; TEMP 36.6–37; O2SAT 92–98
[2019-06-28] MEDS: oxyCODONE 5 mg IR Tab/Cap PO ×4 (04:56→20:44)
--- NOTE | 2019-06-28 05:07 | PC.NURSE ---
PATIENT IS HIGHLY AGITATED AND REFUSED VITALS AT 0400
[2019-06-28] MEDS: dexamethasone 4 mg Tablet 1 MG PO ×2 (08:23→17:42)
[2019-06-28] MEDS: metoprolol tartrate 25 mg Tablet 12.5 MG PO (08:23)
[2019-06-28] MEDS: pantoprazole DR 40 mg Tablet PO (08:23)
[2019-06-28] MEDS: divalproex DR 250 mg Tablet 500 MG PO ×2 (08:23→17:42)
[2019-06-28] MEDS: benzonatate 100 mg Capsule PO ×3 (08:23→20:43)
[2019-06-28] MEDS: budesonide 0.5 mg/2 mL Neb INHALATION ×2 (08:50→20:11)
[2019-06-28] MEDS: ipratropium-albuterol 3 mL Neb INHALATION ×3 (08:50→20:11)
--- NOTE | 2019-06-28 11:11 | PC.CHAP ---
Pastoral Care Encounter/Spiritual Assessment Type of Contact [] Declined it help desk manager visit [] Patient/Family/Request visit [] Outpatient visit [] Follow-up visit [] Physician referral [] Code/Alert [x] Routine visit [] Staff referral [] Actively dying [] Patient sleeping [] Family support [] [] Out of room [] Palliative care [] [] Receiving care in room [] Pre-surgical visit [] Trauma [] Long length of stay [] ICU visit [] Other: Relational/Emotional Strength [] Patient feels connected with others/family/visitors/staff [] Distress [] Loneliness/isolation [] Abandonment Spirituality of Patient [] Person of [place] [] Attends Orthodox of their [place] [] Believes in Prayer [] Reads Bible or Confucianism materials [] There are Spiritual issues to be addressed Passport Application Examiner Interventions [] Prayer [] Active listening [] Non-anxious presence [] Spiritual/emotional support [] Crisis/trauma care [] Spiritual counseling [] Bereavement support [] Provided bereavement packet [] Provided Bible/devotional materials [] Provided toy/stuffed animal, coloring book to patient or family member [] Provided Communion [] Anointing/[place] [] Salvation [x] Completed spiritual assessment [] Other: Impact on Illness or Injury [] Angry [] Fearful [] Anxious [] Often cries [] Exhaustion [] Unable to work [] Unable to attend shinto [] Unable to walk/stand [] Unable to read [] Unable to drive [] Unable to eat/drink [] Unable to sleep [] Unable to be with family [] Patient intubated [] Other: Summary Patient complained of being cold-but had removed gown. Time spent with patient 10 min
[2019-06-28] MEDS: docusate sodium 100 mg Capsule PO (20:43)
--- NOTE | 2019-06-28 22:51 | P.PN_ITS ---
Subjective Subjective: Interval history: Calm today, no acute complaints Medications: Reviewed: Yes Vitals/I&O/Wt Last Vital Signs Temp 98.4 F 06/28/19 20:00 Pulse 94 06/28/19 20:22 Resp 18 06/28/19 20:44 BP 136/68 06/28/19 20:00 Pulse Ox 92 06/28/19 20:44 06/28/19 06/28/19 06/28/19 06:59 14:59 22:59 Intake Total 480 / 1200 240 / 240 240 / 480 Output Total 300 / 300 300 / 300 Balance 180 / 900 240 / 240 -60 / 180 Physical Exam Narrative: EXAM NARRATIVE: GEN: Awake, alert, no acute distress Not cooperative for other examination Data : 06/21/19 04:47 06/21/19 04:47 A&P Assessment and plan (1) Postobstructive pneumonia: Was on vancomycin and Zosyn. Received 9 days of therapy for post obstructive pneumonia. Completed course Status: Acute (2) Hemoptysis: Improved. Secondary to adenocarcinoma of the lung Status: Acute (3) Lung cancer: She is completed a course of radiation. She is now going on hospice on discharge from the hospital With likely brain metastasis. She previously refused MRI with contrast for confirmation but MRI without contrast suggested this. Refused CT head to assess brain lesions Decadron secondary to brain pathology with edema. Reduce dose to 1 mg BID as may be contributing to psychosis. No overt mental status changes with reduction Status: Acute Qualifiers: Laterality: left Lung location: upper lobe of lung Qualified Code(s): C34.12 - Malignant neoplasm of upper lobe, left bronchus or lung (4) SIADH (syndrome of inappropriate ADH production): Improved Status: Acute (5) Liver cirrhosis: Status: Acute (6) Protein calorie malnutrition: Status: Acute Qualifiers: Protein-calorie malnutrition severity: moderate Qualified Code(s): E44.0 - Moderate protein-calorie malnutrition (7) Cluster A personality disorder: Unchanged. Psychiatry has evaluated. Status: Acute (8) Bipolar 1 disorder: Unchanged. Psychiatry has evaluated. Son is currently making decisions as patient is not capable of this. Currently on Depakote- increased dose to 500mg BID. Per review of previous psych notes, may be increased to up to 1000mg daily dosing. However, patient has been refusing blood draws so we may not have an accurate assessment of levels. On the other hand, if it does indeed help calm her, she may be more amenbale to discussions regarding lab draws. Status: Chronic (9) Hypertrophic pulmonary osteoarthropathy: Status: Chronic Additional A&P Information Full code Heparin subcutaneous for DVT prophylaxis As per the consultation from from psychiatry patient is not deemed in capacity to make her own decisions because of advanced bipolar disorder and metastasis to brain. The above opinion was discussed with son Mr. Bell and he states he be the one who would be making the medical decisions for the patient. However i have been unable to reach him in spite of multiple attempts to discuss code status. Son is of opinion that given the advanced disease along with metastasis to brain and his discussion with patient's PCP, oncologist and multiple providers in the past it would be best if patient goes with hospice care. Discharge planning is trying to arrange for this but patient has been resistant, wanting to go back to the hotel she was staying at before. Guardianship is needed, and this process has been initiated. Attestations Medical Necessity Statement*: awaiting guardianship and placement Coding Level of Care Code Acute Shot Grinder Operator for Chg Fwd Diagnoses Postobstructive pneumonia J18.9 Hemoptysis R04.2 Lung cancer C34.12 Laterality: left Lung location: upper lobe of lung SIADH (syndrome of inappropriate ADH production) E22.2 Liver cirrhosis K74.60 Protein calorie malnutrition E44.0 Protein-calorie malnutrition severity: moderate Cluster A personality disorder F60.89 Bipolar 1 disorder F31.9 Hypertrophic pulmonary osteoarthropathy M89.40
[2019-06-29] VITALS (11 sets, daily range): BP systolic 130–150; BP diastolic 71–74; PULSE 84–103; RESP 16–20; TEMP 36.6–37; O2SAT 91–93
[2019-06-29] MEDS: oxyCODONE 5 mg IR Tab/Cap PO ×4 (01:19→20:56)
[2019-06-29] MEDS: ipratropium-albuterol 3 mL Neb INHALATION ×2 (02:19→15:33)
[2019-06-29] MEDS: benzonatate 100 mg Capsule PO ×3 (08:40→20:56)
[2019-06-29] MEDS: metoprolol tartrate 25 mg Tablet 12.5 MG PO (08:40)
[2019-06-29] MEDS: divalproex DR 250 mg Tablet 500 MG PO ×2 (08:40→17:26)
[2019-06-29] MEDS: dexamethasone 4 mg Tablet 1 MG PO ×2 (08:41→17:26)
[2019-06-29] MEDS: pantoprazole DR 40 mg Tablet PO (08:41)
--- NOTE | 2019-06-29 10:27 | PC.SOCIAL ---
Follow up IM not given at this time due to patient will continue to be here awaiting guardianship and placement
--- NOTE | 2019-06-29 11:26 | PM.PN ---
Subjective Subjective: Interval history: no new complaints, pleasant, conversant, intermittent coughing Medications: Reviewed: Yes Vitals/I&O/Wt Last Vital Signs Temp 98.5 F 06/29/19 04:00 Pulse 87 06/29/19 04:00 Resp 16 06/29/19 08:41 BP 135/74 06/29/19 04:00 Pulse Ox 93 06/29/19 04:00 06/28/19 06/29/19 06/29/19 22:59 06:59 14:59 Intake Total 240 / 480 Output Total 300 / 300 Balance -60 / 180 Physical Exam Narrative: EXAM NARRATIVE: GEN: Awake, alert and oriented, no acute distress Did not permit rest of examination Data : 06/21/19 04:47 06/21/19 04:47 A&P Assessment and plan (1) Postobstructive pneumonia: Was on vancomycin and Zosyn. Received 9 days of therapy for post obstructive pneumonia. Completed course Status: Acute (2) Hemoptysis: Improved. Secondary to adenocarcinoma of the lung Status: Acute (3) Lung cancer: She is completed a course of radiation. She is now going on hospice on discharge from the hospital With likely brain metastasis. She previously refused MRI with contrast for confirmation but MRI without contrast suggested this. Refused CT head to assess brain lesions Decadron secondary to brain pathology with edema. Reduce dose to 1 mg BID as may be contributing to psychosis. No overt mental status changes with reduction Status: Acute Qualifiers: Laterality: left Lung location: upper lobe of lung Qualified Code(s): C34.12 - Malignant neoplasm of upper lobe, left bronchus or lung (4) SIADH (syndrome of inappropriate ADH production): Improved Status: Acute (5) Liver cirrhosis: Status: Acute (6) Protein calorie malnutrition: Status: Acute Qualifiers: Protein-calorie malnutrition severity: moderate Qualified Code(s): E44.0 - Moderate protein-calorie malnutrition (7) Cluster A personality disorder: Unchanged. Psychiatry has evaluated. Status: Acute (8) Bipolar 1 disorder: Unchanged. Psychiatry has evaluated. Son is currently making decisions as patient is not capable of this. However he has been unable to be reached in spite of multiple attempts. Guardianship is being pursued in his directions per last conversation. Currently on Depakote- increased dose to 500mg BID. Per review of previous psych notes, may be increased to up to 1000mg daily dosing. However, patient has been refusing blood draws so we may not have an accurate assessment of levels. On the other hand, if it does indeed help calm her, she may be more amenbale to discussions regarding lab draws. Status: Chronic (9) Hypertrophic pulmonary osteoarthropathy: Status: Chronic Additional A&P Information Full code Heparin subcutaneous for DVT prophylaxis As per the consultation from from psychiatry patient is not deemed in capacity to make her own decisions because of advanced bipolar disorder and metastasis to brain. Attestations Medical Necessity Statement*: awaiting guardianship Coding Level of Care Code Acute Customer Marketing Assistant for Chg Fwd Diagnoses Postobstructive pneumonia J18.9 Hemoptysis R04.2 Lung cancer C34.12 Laterality: left Lung location: upper lobe of lung SIADH (syndrome of inappropriate ADH production) E22.2 Liver cirrhosis K74.60 Protein calorie malnutrition E44.0 Protein-calorie malnutrition severity: moderate Cluster A personality disorder F60.89 Bipolar 1 disorder F31.9 Hypertrophic pulmonary osteoarthropathy M89.40
--- NOTE | 2019-06-29 14:46 | PC.NURSE ---
while changing pt bed pt became agitated when asked about a bath due to pt soiling bed and she was complaining of being sticky , this pt stated that you do not know it all , you do not know shit . pt is very agitated with nurse and the nurse beth Ayers, due to nurse asking to assist pt and if she is done with her bm pt stated for this nurse to f off and leave me alone. this nurse gave pt the call light and the items to clean herself up.
--- NOTE | 2019-06-29 15:52 | PC.NURSE ---
Patient refused to let the nurse and nurse's aid give her a sponge bath, or clean her up, after urinating in the bed.
[2019-06-29] MEDS: docusate sodium 100 mg Capsule PO (20:56)
--- NOTE | 2019-06-29 22:41 | PC.NURSE ---
pt belligerently yelling at this nurse, asking nurse, Do you even have a fucking brain. pt was asked not to yell at this nurse. pt continued yelling, then began growling at nurse.
[2019-06-30] VITALS (10 sets, daily range): BP systolic 129–149; BP diastolic 73–76; PULSE 78–110; RESP 16–20; TEMP 36.6–37.1; O2SAT 92–96
[2019-06-30] MEDS: oxyCODONE 5 mg IR Tab/Cap PO ×4 (01:27→17:25)
[2019-06-30] MEDS: ipratropium-albuterol 3 mL Neb INHALATION ×2 (02:49→09:00)
--- NOTE | 2019-06-30 08:04 | PC.NURSE ---
This nurse sitting at nurses station, overheard patient yelling in room. Went to check on pt and pt care nurse Evon Taylor in room. Pt stated that she wanted the sun in her eyes this nurse pushed curtains up to where pt could feel the sun. She yelled thats not high enough! this nurse explained to pt that the curtain does not go any higher but that we could move her bed forward a little to help. She yelled at this nurse and Evon Taylor you don't know what you're doing mother f get out and leave me alone Pt threw her blankets and pen, began to eat her cereal and was growling at this nurse. PRN IM haldol on MAY, this nurse took medication to patient room to give her a dose patient refused stating no needles! This nurse then called Dr. Ramey and informed her of situation, PO Carlozdol ordered.
[2019-06-30] MEDS: pantoprazole DR 40 mg Tablet PO (08:14)
[2019-06-30] MEDS: dexamethasone 4 mg Tablet 1 MG PO ×2 (08:14→17:24)
[2019-06-30] MEDS: benzonatate 100 mg Capsule PO ×3 (08:15→20:06)
[2019-06-30] MEDS: divalproex DR 250 mg Tablet 500 MG PO ×2 (08:15→17:24)
[2019-06-30] MEDS: metoprolol tartrate 25 mg Tablet 12.5 MG PO (08:15)
[2019-06-30] MEDS: haloperidol 1 mg Tablet PO (08:15)
[2019-06-30] MEDS: budesonide 0.5 mg/2 mL Neb INHALATION (09:00)
--- NOTE | 2019-06-30 13:22 | P.PN_ITS ---
Subjective Subjective: Interval history: Agitated, not cooperative, yells upon entering room Medications: Reviewed: Yes Vitals/I&O/Wt Last Vital Signs Temp 97.9 F 06/30/19 04:00 Pulse 78 06/30/19 09:03 Resp 16 06/30/19 09:03 BP 149/76 06/30/19 04:00 Pulse Ox 96 06/30/19 09:03 06/29/19 06/30/19 06/30/19 22:59 06:59 14:59 Intake Total 600 / 1080 600 / 1680 240 / 240 Output Total 400 / 400 Balance 200 / 680 600 / 1280 240 / 240 Physical Exam Narrative: EXAM NARRATIVE: GEN: Awake, alert and oriented, no acute distress Did not permit rest of examination Data : 06/21/19 04:47 06/21/19 04:47 A&P Assessment and plan (1) Postobstructive pneumonia: Was on vancomycin and Zosyn. Received 9 days of therapy for post obstructive pneumonia. Completed course Status: Acute (2) Hemoptysis: Improved. Secondary to adenocarcinoma of the lung Status: Acute (3) Lung cancer: She is completed a course of radiation. She is now going on hospice on discharge from the hospital With likely brain metastasis. She previously refused MRI with contrast for confirmation but MRI without contrast suggested this. Refused CT head to assess brain lesions Decadron secondary to brain pathology with edema. Reduce dose to 1 mg BID as may be contributing to psychosis. No overt mental status changes with reduction Status: Acute Qualifiers: Laterality: left Lung location: upper lobe of lung Qualified Code(s): C34.12 - Malignant neoplasm of upper lobe, left bronchus or lung (4) SIADH (syndrome of inappropriate ADH production): Improved Status: Acute (5) Liver cirrhosis: Status: Acute (6) Protein calorie malnutrition: Status: Acute Qualifiers: Protein-calorie malnutrition severity: moderate Qualified Code(s): E44.0 - Moderate protein-calorie malnutrition (7) Cluster A personality disorder: Unchanged. Psychiatry has evaluated. Status: Acute (8) Bipolar 1 disorder: Unchanged. Psychiatry has evaluated. Son is currently making decisions as patient is not capable of this. However he has been unable to be reached in spite of multiple attempts. Guardianship is being pursued in his directions per last conversation. Currently on Depakote- increased dose to 500mg BID. Per review of previous psych notes, may be increased to up to 1000mg daily dosing. However, patient has been refusing blood draws so we may not have an accurate assessment of levels. On the other hand, if it does indeed help calm her, she may be more amenbale to discussions regarding lab draws. Status: Chronic (9) Hypertrophic pulmonary osteoarthropathy: Status: Chronic Additional A&P Information Full code Heparin subcutaneous for DVT prophylaxis As per the consultation from from psychiatry patient is not deemed in capacity to make her own decisions because of advanced bipolar disorder and metastasis to brain. Attestations Medical Necessity Statement*: awaiting guardianship Coding Level of Care Code Acute Private Client Advisor for g Fwd Diagnoses Postobstructive pneumonia J18.9 Hemoptysis R04.2 Lung cancer C34.12 Laterality: left Lung location: upper lobe of lung SIADH (syndrome of inappropriate ADH production) E22.2 Liver cirrhosis K74.60 Protein calorie malnutrition E44.0 Protein-calorie malnutrition severity: moderate Cluster A personality disorder F60.89 Bipolar 1 disorder F31.9 Hypertrophic pulmonary osteoarthropathy M89.40
[2019-06-30] MEDS: docusate sodium 100 mg Capsule PO (20:06)
[2019-07-01] VITALS (7 sets, daily range): BP systolic 123–147; BP diastolic 57–80; PULSE 78–118; RESP 18–22; TEMP 36.3–37.1; O2SAT 91–98
[2019-07-01] MEDS: oxyCODONE 5 mg IR Tab/Cap PO ×4 (04:51→23:55)
--- NOTE | 2019-07-01 05:02 | PC.NURSE ---
Patient found up in room pulling off sheets and throwing them on the floor, cursing. Patient BSC at bedside with soiled morgan inside. BSC emptied as patient states she needs to have a bowel movement. Patient demanding pain pill. Pain pill given to patient along with requested coffee. Patient becoming agitated and throwing things across the room, pulling on the bedside table, cursing at staff in room. Patient up to BSC and refused further staff assistance. Will continue to monitor.
[2019-07-01] MEDS: haloperidol 1 mg Tablet PO ×2 (09:09→15:51)
[2019-07-01] MEDS: benzonatate 100 mg Capsule PO ×3 (09:09→19:26)
--- NOTE | 2019-07-01 09:10 | PC.NURSE ---
Patient given Haldol at this time. Patient is cussing at the aide. Patient states, Everyone always comes in here and fucks with my stuff. All I wanted was for someone to come in here and give me my pills and then leave me the fuck alone. Explained to the patient that the aid was just answering the call light. Pain medication was given at this time as well.
--- NOTE | 2019-07-01 11:25 | PC.SOCIAL ---
IMM Updated Updated pt on Pg 2 IMM. No questions voiced. Provided pt a copy. Signed, dated, & timed the copy in chart.
--- NOTE | 2019-07-01 15:36 | P.PN_ITS ---
Subjective Subjective: Interval history: coughing, occassional blood streaked sputum. Does not wish to talk, states to leave her alone she has a headache. Medications: Reviewed: Yes Vitals/I&O/Wt Last Vital Signs Temp 97.3 F L 07/01/19 07:23 Pulse 78 07/01/19 07:23 Resp 18 07/01/19 09:09 BP 140/80 07/01/19 07:23 Pulse Ox 98 07/01/19 07:23 Physical Exam Narrative: EXAM NARRATIVE: did not permit Data : 06/21/19 04:47 06/21/19 04:47 A&P Assessment and plan (1) Postobstructive pneumonia: Was on vancomycin and Zosyn. Received 9 days of therapy for post obstructive pneumonia. Completed course Status: Acute (2) Hemoptysis: Improved. Secondary to adenocarcinoma of the lung Status: Acute (3) Lung cancer: She is completed a course of radiation. She is now going on hospice on discharge from the hospital With likely brain metastasis. She previously refused MRI with contrast for confirmation but MRI without contrast suggested this. Refused CT head to assess brain lesions Decadron secondary to brain pathology with edema. Reduce dose to 1 mg BID as may be contributing to psychosis. No overt mental status changes with reduction Status: Acute Qualifiers: Laterality: left Lung location: upper lobe of lung Qualified Code(s): C34.12 - Malignant neoplasm of upper lobe, left bronchus or lung (4) SIADH (syndrome of inappropriate ADH production): Improved Status: Acute (5) Liver cirrhosis: Status: Acute (6) Protein calorie malnutrition: Status: Acute Qualifiers: Protein-calorie malnutrition severity: moderate Qualified Code(s): E44.0 - Moderate protein-calorie malnutrition (7) Cluster A personality disorder: Unchanged. Psychiatry has evaluated. Status: Acute (8) Bipolar 1 disorder: Unchanged. Psychiatry has evaluated. Son is currently making decisions as patient is not capable of this. However he has been unable to be reached in spite of multiple attempts. Guardianship is being pursued in his directions per last conversation. Currently on Depakote- increased dose to 500mg BID. Per review of previous psych notes, may be increased to up to 1000mg daily dosing. However, patient has been refusing blood draws so we may not have an accurate assessment of levels. On the other hand, if it does indeed help calm her, she may be more amenbale to discus sions regarding lab draws. Status: Chronic (9) Hypertrophic pulmonary osteoarthropathy: Status: Chronic Additional A&P Information Full code Heparin subcutaneous for DVT prophylaxis As per the consultation from from psychiatry patient is not deemed in capacity t o make her own decisions because of advanced bipolar disorder and possible metastasis to brain. Son stated on last conversation that he wants us to pursue guardianship, which has been started Attestations Medical Necessity Statement*: awaiting guardianship and placement Coding Level of Care Code Acute Ceramic Tile Installation Helper for Chg Fwd Diagnoses Postobstructive pneumonia J18.9 Hemoptysis R04.2 Lung cancer C34.12 Laterality: left Lung location: upper lobe of lung SIADH (syndrome of inappropriate ADH production) E22.2 Liver cirrhosis K74.60 Protein calorie malnutrition E44.0 Protein-calorie malnutrition severity: moderate Cluster A personality disorder F60.89 Bipolar 1 disorder F31.9 Hypertrophic pulmonary osteoarthropathy M89.40
--- NOTE | 2019-07-01 16:00 | PC.NURSE ---
In room to attempt to get vital signs as patient told the CE Oleary to quote, Stick it in her ass. Patient states, I don't need my vital signs taken I just need some hot coffee and a pain pill. Patient has completely striped her bed. Patient has liens thrown everywhere. Patient has voided in the middle of her mattress. Asked patient is i could help her help clean up anything. Patient states, What are you talking about there is nothing wrong with my room Informed patient that her pain medications have and I will have to wait until I get a new order to give her some. Coffee given at this time. Patient setting on the bedside commode.
[2019-07-01] MEDS: dexamethasone 4 mg Tablet 1 MG PO (18:37)
[2019-07-01] MEDS: divalproex DR 250 mg Tablet 500 MG PO (18:37)
[2019-07-01] MEDS: docusate sodium 100 mg Capsule PO (19:27)
--- NOTE | 2019-07-01 22:26 | PC.NURSE ---
Upon entry to room, patient found to be sitting in chair with blankets, shoes, shocks, empty tissue boxes, chucks, etc all around the floor and on the bed Urine found in the floor, BSC found to have stool and depends in it. Emptied. Patient very anxious and demanding pain medication and to get back into bed. Assisted patient into bed and orders received from Dr Samuel for pain medication. RN went to get pain pill, upon entry into patient room, patient yelling at RN saying no one ever comes into her room to check on her but also tells this RN to leave her room and never come back she is tired of being bothered. Will continue to monitor patient.
[2019-07-02] VITALS (12 sets, daily range): BP systolic 122–151; BP diastolic 55–79; PULSE 95–108; RESP 16–20; TEMP 36.6–36.9; O2SAT 91–96
[2019-07-02] MEDS: oxyCODONE 5 mg IR Tab/Cap PO ×5 (04:17→20:53)
[2019-07-02] MEDS: divalproex DR 250 mg Tablet 500 MG PO ×2 (07:48→17:09)
[2019-07-02] MEDS: metoprolol tartrate 25 mg Tablet 12.5 MG PO (07:48)
[2019-07-02] MEDS: dexamethasone 4 mg Tablet 1 MG PO ×2 (07:48→17:09)
[2019-07-02] MEDS: pantoprazole DR 40 mg Tablet PO (07:49)
[2019-07-02] MEDS: benzonatate 100 mg Capsule PO ×3 (07:49→20:53)
[2019-07-02] MEDS: ipratropium-albuterol 3 mL Neb INHALATION ×2 (14:31→21:51)
[2019-07-02] MEDS: budesonide 0.5 mg/2 mL Neb INHALATION (21:51)
--- NOTE | 2019-07-02 23:39 | P.PN_ITS ---
Subjective Subjective: Interval history: Seen in morning. C/o headache since this morning. Conversant, calm Medications: Reviewed: Yes Vitals/I&O/Wt Last Vital Signs Temp 98.3 F 07/02/19 19:21 Pulse 106 H 07/02/19 21:59 Resp 18 07/02/19 21:51 BP 151/79 07/02/19 19:21 Pulse Ox 92 07/02/19 21:59 Physical Exam Narrative: EXAM NARRATIVE: did not permit Data : 06/21/19 04:47 06/21/19 04:47 A&P Assessment and plan (1) Postobstructive pneumonia: Was on vancomycin and Zosyn. Received 9 days of therapy for post obstructive pneumonia. Completed course Status: Acute (2) Hemoptysis: Improved. Secondary to adenocarcinoma of the lung Status: Acute (3) Lung cancer: She is completed a course of radiation. She is now going on hospice on discharge from the hospital With likely brain metastasis. She previously refused MRI with contrast for confirmation but MRI without contrast suggested this. Refused CT head to assess brain lesions Decadron secondary to brain pathology with edema. Reduce dose to 1 mg BID as may be contributing to psychosis. No overt mental status changes with reduction Status: Acute Qualifiers: Laterality: left Lung location: upper lobe of lung Qualified Code(s): C34.12 - Malignant neoplasm of upper lobe, left bronchus or lung (4) SIADH (syndrome of inappropriate ADH production): Improved Status: Acute (5) Liver cirrhosis: Status: Acute (6) Protein calorie malnutrition: Status: Acute Qualifiers: Protein-calorie malnutrition severity: moderate Qualified Code(s): E44.0 - Moderate protein-calorie malnutrition (7) Cluster A personality disorder: Unchanged. Psychiatry has evaluated. Status: Acute (8) Bipolar 1 disorder: Unchanged. Psychiatry has evaluated. Son is currently making decisions as patient is not capable of this. However he has been unable to be reached in spite of multiple attempts. Guardianship is being pursued in his directions per last conversation. Currently on Depakote- increased dose to 500mg BID. Per review of previous psych notes, may be increased to up to 1000mg daily dosing. However, patient has been refusing blood draws so we may not have an accurate assessment of levels. On the other hand, if it does indeed help calm her, she may be more amenbale to discussions regarding lab draws. Status: Chronic (9) Hypertrophic pulmonary osteoarthropathy: Status: Chronic Additional A&P Information Full code Heparin subcutaneous for DVT prophylaxis As per the consultation from from psychiatry patient is not deemed in capacity to make her own decisions because of advanced bipolar disorder and possible metastasis to brain. Son stated on last conversation that he wants us to pursue guardianship, which has been started Attestations Medical Necessity Statement*: awaiting placement Coding Level of Care Code Acute Meteorological Observer for g Fwd Diagnoses Postobstructive pneumonia J18.9 Hemoptysis R04.2 Lung cancer C34.12 Laterality: left Lung location: upper lobe of lung SIADH (syndrome of inappropriate ADH production) E22.2 Liver cirrhosis K74.60 Protein calorie malnutrition E44.0 Protein-calorie malnutrition severity: moderate Cluster A personality disorder F60.89 Bipolar 1 disorder F31.9 Hypertrophic pulmonary osteoarthropathy M89.40
[2019-07-03] VITALS (16 sets, daily range): BP systolic 122–157; BP diastolic 65–74; PULSE 98–125; RESP 18–22; TEMP 36.5–37.3; O2SAT 91–93
[2019-07-03] MEDS: oxyCODONE 5 mg IR Tab/Cap PO ×5 (00:39→18:18)
[2019-07-03] MEDS: ipratropium-albuterol 3 mL Neb INHALATION ×3 (04:32→14:31)
--- NOTE | 2019-07-03 07:33 | PC.SOCIAL ---
Followup IM held at this time. Working on Guardianship for this patient along with placement. Discharge not planned in the near future.
[2019-07-03] MEDS: metoprolol tartrate 25 mg Tablet 12.5 MG PO (08:02)
[2019-07-03] MEDS: benzonatate 100 mg Capsule PO ×3 (08:02→21:28)
[2019-07-03] MEDS: pantoprazole DR 40 mg Tablet PO (08:03)
[2019-07-03] MEDS: divalproex DR 250 mg Tablet 500 MG PO ×2 (08:03→18:18)
[2019-07-03] MEDS: dexamethasone 4 mg Tablet 1 MG PO ×2 (08:09→18:17)
[2019-07-03] MEDS: budesonide 0.5 mg/2 mL Neb INHALATION (09:31)
--- NOTE | 2019-07-03 11:52 | PM.PN ---
Subjective Subjective: Interval history: Helen seemed upset when I even entered the room. She then visited with me, but did not want an exam. Medications: Reviewed: Yes Vitals/I&O/Wt Last Vital Signs Temp 98.6 F 07/03/19 08:38 Pulse 108 H 07/03/19 09:42 Resp 18 07/03/19 09:55 BP 149/71 07/03/19 08:38 Pulse Ox 92 07/03/19 09:55 Physical Exam Narrative: EXAM NARRATIVE: General exam no apparent distress Rest of exam deferred Data : 06/21/19 04:47 06/21/19 04:47 A&P Assessment and plan (1) Postobstructive pneumonia: Was on vancomycin and Zosyn. She completed her course of antibiotics. Status: Acute (2) Hemoptysis: Improved. Secondary to adenocarcinoma of the lung Status: Acute (3) Lung cancer: She has completed a course of radiation. She is now going on hospice on discharge from the hospital With likely brain metastasis. She previously refused MRI with contrast for confirmation but MRI without contrast suggested this. Refused MRI with contrast head to assess brain lesions Decadron secondary to brain pathology with edema, 1 mg twice daily Status: Acute Qualifiers: Laterality: left Lung location: upper lobe of lung Qualified Code(s): C34.12 - Malignant neoplasm of upper lobe, left bronchus or lung (4) SIADH (syndrome of inappropriate ADH production): Improved Status: Acute (5) Liver cirrhosis: Status: Acute (6) Protein calorie malnutrition: Status: Acute Qualifiers: Protein-calorie malnutrition severity: moderate Qualified Code(s): E44.0 - Moderate protein-calorie malnutrition (7) Cluster A personality disorder: Unchanged. Psychiatry has evaluated. Status: Acute (8) Bipolar 1 disorder: Unchanged. Psychiatry has evaluated. Son is currently making decisions as patient is not capable of this. However he has been unable to be reached in spite of multiple attempts. Guardianship is being pursued in his directions per last conversation. Currently on Depakote, 500 mg twice daily. She has been refusing any blood draws to monitor levels. Status: Chronic (9) Hypertrophic pulmonary osteoarthropathy: Status: Chronic Additional A&P Information Full code Heparin subcutaneous for DVT prophylaxis As per the consultation from from psychiatry patient is not deemed in capacity to make her own decisions because of advanced bipolar disorder and possible metastasis to brain. Son stated on last conversation that he wants us to pursue guardianship, which has been started. We are awaiting guardianship prior to placement, as skilled facilities are requiring this. Attestations Medical Necessity Statement*: Needs continued hospitalization pending guardianship and placement Coding Level of Care Code Acute Administrative Nursing Supervisor for Chg Fwd Diagnoses Postobstructive pneumonia J18.9 Hemoptysis R04.2 Lung cancer C34.12 Laterality: left Lung location: upper lobe of lung SIADH (syndrome of inappropriate ADH production) E22.2 Liver cirrhosis K74.60 Protein calorie malnutrition E44.0 Protein-calorie malnutrition severity: moderate Cluster A personality disorder F60.89 Bipolar 1 disorder F31.9 Hypertrophic pulmonary osteoarthropathy M89.40
[2019-07-03] MEDS: docusate sodium 100 mg Capsule PO (21:28)
[2019-07-04] VITALS (14 sets, daily range): BP systolic 129–162; BP diastolic 64–89; PULSE 85–106; RESP 18–24; TEMP 36.7–37.1; O2SAT 89–97
[2019-07-04] MEDS: oxyCODONE 5 mg IR Tab/Cap PO ×3 (01:01→20:26)
[2019-07-04] MEDS: benzonatate 100 mg Capsule PO ×3 (08:25→20:25)
[2019-07-04] MEDS: pantoprazole DR 40 mg Tablet PO (08:25)
[2019-07-04] MEDS: metoprolol tartrate 25 mg Tablet 12.5 MG PO (08:26)
[2019-07-04] MEDS: divalproex DR 250 mg Tablet 500 MG PO ×2 (08:26→17:17)
[2019-07-04] MEDS: dexamethasone 4 mg Tablet 1 MG PO ×2 (08:26→17:17)
[2019-07-04] MEDS: ipratropium-albuterol 3 mL Neb INHALATION ×3 (08:46→20:22)
[2019-07-04] MEDS: budesonide 0.5 mg/2 mL Neb INHALATION ×2 (08:46→20:22)
--- NOTE | 2019-07-04 11:07 | PM.PN ---
Subjective Subjective: Interval history: Evelyn is fairly upset when I visited her. She flips me off on into the room, reporting that she is fixing her coffee right now. She talks about multiple different things at 1 time, going from subject to subject. Memory seems good and brings up another subject that we have talked about 10 to 14 days ago. She does allow on exam today. Medications: Reviewed: Yes Vitals/I&O/Wt Last Vital Signs Temp 98.8 F 07/04/19 08:00 Pulse 106 H 07/04/19 08:52 Resp 20 H 07/04/19 08:48 BP 158/89 07/04/19 08:00 Pulse Ox 92 07/04/19 08:48 07/03/19 07/04/19 07/04/19 22:59 06:59 14:59 Intake Total 360 / 360 Balance 360 / 360 Physical Exam Narrative: EXAM NARRATIVE: General exam no apparent distress, but agitated Cardiovascular regular rate and rhythm Lungs diminished breath sounds bilaterally Abdomen is soft and positive bowel sounds Extremities no cyanosis clubbing. 2+ edema noted. Data : 06/21/19 04:47 06/21/19 04:47 A&P Assessment and plan (1) Postobstructive pneumonia: Was on vancomycin and Zosyn. She completed her course of antibiotics. Status: Acute (2) Hemoptysis: Improved. Secondary to adenocarcinoma of the lung Status: Acute (3) Lung cancer: She has completed a course of radiation. She is now going on hospice on discharge from the hospital With likely brain metastasis. She previously refused MRI with contrast for confirmation but MRI without contrast suggested this. Refused MRI with contrast head to assess brain lesions Decadron secondary to brain pathology with edema, 1 mg twice daily Status: Acute Qualifiers: Laterality: left Lung location: upper lobe of lung Qualified Code(s): C34.12 - Malignant neoplasm of upper lobe, left bronchus or lung (4) SIADH (syndrome of inappropriate ADH production): Improved Status: Acute (5) Liver cirrhosis: Status: Acute (6) Protein calorie malnutrition: Status: Acute Qualifiers: Protein-calorie malnutrition severity: moderate Qualified Code(s): E44.0 - Moderate protein-calorie malnutrition (7) Cluster A personality disorder: Unchanged. Psychiatry has evaluated. Status: Acute (8) Bipolar 1 disorder: Unchanged. Psychiatry has evaluated. Son is currently making decisions as patient is not capable of this. However he has been unable to be reached in spite of multiple attempts. Guardianship is being pursued in his directions per last conversation. Currently on Depakote, 500 mg twice daily. She has been refusing any blood draws to monitor levels. I have contacted psychiatry today who will do a follow-up visit secondary to her being more agitated today, and need for reevaluation. I do not believe she is able to make her own decisions and agree with psychiatry as previous assessments. Status: Chronic (9) Hypertrophic pulmonary osteoarthropathy: Status: Chronic Additional A&P Information Full code Heparin subcutaneous for DVT prophylaxis As per the consultation from from psychiatry patient is not deemed in capacity to make her own decisions because of advanced bipolar disorder and possible metastasis to brain. Son stated on last conversation that he wants us to pursue guardianship, which has been started. We are awaiting guardianship prior to placement, as skilled facilities are requiring this. Attestations Medical Necessity Statement*: Needs continued hospitalization pending placement, pending guardianship Coding Level of Care Code Acute Cutting And Creasing Press Operator for Chg Fwd Diagnoses Postobstructive pneumonia J18.9 Hemoptysis R04.2 Lung cancer C34.12 Laterality: left Lung location: upper lobe of lung SIADH (syndrome of inappropriate ADH production) E22.2 Liver cirrhosis K74.60 Protein calorie malnutrition E44.0 Protein-calorie malnutrition severity: moderate Cluster A personality disorder F60.89 Bipolar 1 disorder F31.9 Hypertrophic pulmonary osteoarthropathy M89.40
--- NOTE | 2019-07-04 17:37 | PC.NURSE ---
PT CURRENTLY HAS STOOL SMEARED ON THE R LOWER SIDE OF HER BED AND IS REFUSING TO ALLOW THE RN TO CHANGE HER BED.
[2019-07-04] MEDS: docusate sodium 100 mg Capsule PO (20:25)
[2019-07-05] VITALS (12 sets, daily range): BP systolic 126–168; BP diastolic 67–89; PULSE 75–98; RESP 17–20; TEMP 36.6–36.9; O2SAT 95–97
[2019-07-05] MEDS: oxyCODONE 5 mg IR Tab/Cap PO ×5 (01:56→21:38)
--- NOTE | 2019-07-05 06:57 | PC.SOCIAL ---
IM follow up not given. Patient is not close to being discharge. CM to follow and as DC date becomes closer will continue to provide IM letter.
--- NOTE | 2019-07-05 07:15 | P.PN_ITS ---
Subjective NPU Subjective: Interval history: Evelyn is known to this technical proposal writer from past psychiatric consult back in May. She has been seen by psychiatry and the prevailing thought continues to be that she lacks decision making capacity. However, at this point the question is, is there any medication interventions that we could initiate to assist in her behavioral dysregulation in such a way that she might be a better candidate for follow-up at another facility. Evelyn presents today at times tearful talking about her son, talking about her cancer, reporting like she did last time that what she would like to do versus taking any medication for psychiatric concerns or otherwise would be smoke weed. We discussed the fact the concerns she is having that would likely not be indicated. She continues to look forward to seeing her grandchildren, talks a lot about her son being busy, talked about being glad that she is not with her ex, and talked about not being able to have babies and things of that nature, very driven about her freedom and not wanting anything that we do in treatment to interfere with her freedom that would interfere with her ability to possibly smoke weed. She denied being any kind of un-positive way with anyone and was in general cooperative and participatory in the evaluation. However, there was a point where the questions started getting more specific and more driven in the desired outcome, and she did start to talk about how there have been too many questions which she has done in the past. She expressed knowledge of her disease but some of her reasons are not letting certain interventions go including MRI, which she reports she will not get unless they can do an open one and they cannot do an open one here. She endorsed a desire to go back to her previous living arrangement which would not be productive for what we understand. moving forward. Mental Status Exam MSE Comments: This is an underweight, white female with significant swelling in her feet and dependent edema, essentially naked under the blanket, often adjusting herself to try to stay covered with no abnormal movements except for mild psychomotor agitation. Semi-cooperative with exam in no occasional distress. Speech was increased rate and volume and mildly pressured. Mood described as fine; affect slightly elevated. Thought process, mostly organized. Thought content: patient denied any suicidal or homicidal ideation, there were no delusions reported but some paranoia exists. She did not appear to be attending to internal stimuli. Attention and concentration were limited, and memory was unreliable but a reasonable historian, but none were formally tested. She is alert and oriented to person and place. Insight and judgment are impaired. Vitals/I&O/Wt Last Vital Signs Temp 98.5 F 07/05/19 04:00 Pulse 96 07/05/19 04:00 Resp 18 07/05/19 05:31 BP 164/79 07/05/19 04:00 Pulse Ox 97 07/05/19 04:00 07/04/19 07/05/19 07/05/19 22:59 06:59 14:59 Intake Total 120 / 960 480 / 1440 Output Total Balance 120 / 960 479 / 1439 Data NPU : 06/21/19 04:47 06/21/19 04:47 A&P Assessment and plan (1) Cluster A personality disorder: This is a 63 year old, white female, with either bipolar disorder/schizoaffective disorder, bipolar type, or significant Cluster A pathology or both, along with lung cancer with likely metastases, who presents without full functioning decision making capacity, but some history of aggression which has made it hard for her to be managed and/or placed. COMMENDATION AND PLAN: Continue current medications except: I would try 1 to 2 mg of Haldol at bedtime, and after she acclimates to that over a couple of days, add 1 to 2 mg during the day and titrate the Haldol as she tolerates, and see if that does not help take the edge off of hypomanic/manic vibe that she has. Would agree with placement if placement were available. She might gain some benefit from a [facility]ylan-psychiatric facility, but likely given all the circumstances it would be hard to make that happen, so we will try to titrate the medication to help her be more functional and less disruptive. Status: Acute (2) Bipolar 1 disorder: Status: Chronic Attestations NPU Medical Necessity Statement*: N/A. Please refer to primary team for medical necessity. Psychiatry will continue to be of whatever assistance we can. Coding Level of Care Code Acute Spiral Gear Generator for Tee Ryan Diagnoses Cluster A personality disorder F60.89 Bipolar 1 disorder F31.9
[2019-07-05] MEDS: dexamethasone 4 mg Tablet 1 MG PO ×2 (10:20→18:04)
[2019-07-05] MEDS: benzonatate 100 mg Capsule PO ×3 (10:21→21:38)
[2019-07-05] MEDS: divalproex DR 250 mg Tablet 500 MG PO ×2 (10:22→18:04)
[2019-07-05] MEDS: metoprolol tartrate 25 mg Tablet 12.5 MG PO (10:23)
[2019-07-05] MEDS: pantoprazole DR 40 mg Tablet PO (10:23)
[2019-07-05] MEDS: haloperidol 1 mg Tablet PO (13:21)
[2019-07-05] MEDS: ipratropium-albuterol 3 mL Neb INHALATION (14:21)
--- NOTE | 2019-07-05 18:07 | PM.PN ---
Subjective Subjective: Interval history: Helen reported she did not want to see me today. She briefly talked with me and was mad that she was not going to be discharged. She is very upset that I told her she could not go back to [place] and that she had not lived there. She jumps from one subject to the next. She yells for a while, regarding different subjects and then flips me off. Medications: Reviewed: Yes Vitals/I&O/Wt Last Vital Signs Temp 97.9 F 07/05/19 15:52 Pulse 88 07/05/19 15:52 Resp 18 07/05/19 15:52 BP 126/67 07/05/19 15:52 Pulse Ox 95 07/05/19 15:52 07/05/19 07/05/19 07/05/19 06:59 14:59 22:59 Intake Total 480 / 1440 Output Total Balance 479 / 1439 Physical Exam Narrative: EXAM NARRATIVE: General exam is an emotionally labile female, in no distress She will not allow any further exam other than my ability to observe her lower extremities which show 2+ bilateral edema. Data : 06/21/19 04:47 06/21/19 04:47 A&P Assessment and plan (1) Postobstructive pneumonia: Was on vancomycin and Zosyn. She completed her course of antibiotics. Status: Acute (2) Hemoptysis: Improved. Secondary to adenocarcinoma of the lung Status: Acute (3) Lung cancer: She has completed a course of radiation. She is now going on hospice on discharge from the hospital With likely brain metastasis. She previously refused MRI with contrast for confirmation but MRI without contrast suggested this. Refused MRI with contrast head to assess brain lesions Decadron secondary to brain pathology with edema, 1 mg twice daily Status: Acute Qualifiers: Laterality: left Lung location: upper lobe of lung Qualified Code(s): C34.12 - Malignant neoplasm of upper lobe, left bronchus or lung (4) SIADH (syndrome of inappropriate ADH production): Improved Status: Acute (5) Liver cirrhosis: Status: Acute (6) Protein calorie malnutrition: Status: Acute Qualifiers: Protein-calorie malnutrition severity: moderate Qualified Code(s): E44.0 - Moderate protein-calorie malnutrition (7) Cluster A personality disorder: Unchanged. Psychiatry has evaluated. Status: Acute (8) Bipolar 1 disorder: Unchanged. Psychiatry has evaluated. Son is currently making decisions as patient is not capable of this. However he has been unable to be reached in spite of multiple attempts. Guardianship is being pursued in his directions per last conversation. Currently on Depakote, 500 mg twice daily. She has been refusing any blood draws to monitor levels. I have asked psychiatry to see her regarding her continued agitation. I think this will need to be better controlled prior to making any transition to skilled care. I do not believe she is able to make her own decisions and agree with psychiatry previous assessments. Status: Chronic (9) Hypertrophic pulmonary osteoarthropathy: Status: Chronic Additional A&P Information Full code Heparin subcutaneous for DVT prophylaxis As per the consultation from from psychiatry patient is not deemed in capacity to make her own decisions because of advanced bipolar disorder and possible metastasis to brain. Son stated on last conversation that he wants us to pursue guardianship, which has been started. We are awaiting guardianship prior to placement, as skilled facilities are requiring this. Attestations Medical Necessity Statement*: Needs continued hospitalization pending placement and guardianship Coding Level of Care Code Acute Shipping And Receiving Supervisor for Chg Fwd Diagnoses Postobstructive pneumonia J18.9 Hemoptysis R04.2 Lung cancer C34.12 Laterality: left Lung location: upper lobe of lung SIADH (syndrome of inappropriate ADH production) E22.2 Liver cirrhosis K74.60 Protein calorie malnutrition E44.0 Protein-calorie malnutrition severity: moderate Cluster A personality disorder F60.89 Bipolar 1 disorder F31.9 Hypertrophic pulmonary osteoarthropathy M89.40
[2019-07-05] MEDS: docusate sodium 100 mg Capsule PO (21:38)
[2019-07-06] VITALS (13 sets, daily range): BP systolic 112–148; BP diastolic 71–80; PULSE 78–115; RESP 18–22; TEMP 36.6–36.8; O2SAT 94–96
[2019-07-06] MEDS: oxyCODONE 5 mg IR Tab/Cap PO ×4 (03:19→19:23)
[2019-07-06] MEDS: ipratropium-albuterol 3 mL Neb INHALATION ×2 (08:58→20:23)
[2019-07-06] MEDS: budesonide 0.5 mg/2 mL Neb INHALATION ×2 (08:58→20:23)
[2019-07-06] MEDS: divalproex DR 250 mg Tablet 500 MG PO ×2 (09:00→18:23)
[2019-07-06] MEDS: pantoprazole DR 40 mg Tablet PO (09:00)
[2019-07-06] MEDS: metoprolol tartrate 25 mg Tablet 12.5 MG PO (09:01)
[2019-07-06] MEDS: dexamethasone 4 mg Tablet 1 MG PO ×2 (09:01→18:23)
[2019-07-06] MEDS: benzonatate 100 mg Capsule PO ×3 (09:02→19:24)
[2019-07-06] MEDS: haloperidol 1 mg Tablet PO ×3 (09:59→22:20)
--- NOTE | 2019-07-06 09:59 | PC.NURSE ---
This nurse could hear patient yelling from her room, I approached her room and seen Dr. Forde at the door wanting to round on her. Patient yelled at him to get out pt care nurse Nargis MOODY with patient at this time giving prn haldol. CNAs also at bedside assisting patient in getting cleaned up.
--- NOTE | 2019-07-06 10:02 | PM.PN ---
Subjective Subjective: Interval history: I knock on Evelyn's door and enter and she immediately starts yelling. Calls me a pervert. Yells not to come back. She had been yelling earlier at someone during a phone conversation and I had deferred her visit then. Medications: Reviewed: Yes Vitals/I&O/Wt Last Vital Signs Temp 98.0 F 07/06/19 07:25 Pulse 85 07/06/19 09:04 Resp 18 07/06/19 09:01 BP 132/80 07/06/19 00:00 Pulse Ox 94 07/06/19 08:57 07/05/19 07/06/19 07/06/19 22:59 06:59 14:59 Intake Total 360 / 840 Output Total 150 / 150 120 / 270 Balance 210 / 690 -120 / 570 Physical Exam Narrative: EXAM NARRATIVE: General exam, when I walked in the room was a white female, yelling to leave, partially dressed in the sheet which is her norm. Toilet paper was on the floor with some stool. Other exam is obviously not possible, so I left the room to deescalate the situation, notified nursing staff that they were needed. Data : 06/21/19 04:47 06/21/19 04:47 A&P Assessment and plan (1) Postobstructive pneumonia: Was on vancomycin and Zosyn. She completed her course of antibiotics. Status: Acute (2) Hemoptysis: Improved. Secondary to adenocarcinoma of the lung Status: Acute (3) Lung cancer: She has completed a course of radiation. She is now going on hospice on discharge from the hospital With likely brain metastasis. She previously refused MRI with contrast for confirmation but MRI without contrast suggested this. Refused MRI with contrast head to assess brain lesions Decadron secondary to brain pathology with edema, 1 mg twice daily Status: Acute Qualifiers: Laterality: left Lung location: upper lobe of lung Qualified Code(s): C34.12 - Malignant neoplasm of upper lobe, left bronchus or lung (4) SIADH (syndrome of inappropriate ADH production): Improved Status: Acute (5) Liver cirrhosis: Status: Acute (6) Protein calorie malnutrition: Status: Acute Qualifiers: Protein-calorie malnutrition severity: moderate Qualified Code(s): E44.0 - Moderate protein-calorie malnutrition (7) Cluster A personality disorder: Unchanged. Psychiatry has evaluated. Status: Acute (8) Bipolar 1 disorder: Unchanged. Psychiatry has evaluated. Son is currently making decisions as patient is not capable of this. However he has been unable to be reached in spite of multiple attempts. Guardianship is being pursued in his directions per last conversation. Currently on Depakote, 500 mg twice daily. She has been refusing any blood draws to monitor levels. I have asked psychiatry to see her regarding her continued agitation. Yesterday, I discussed with them again and psychiatry reported that stopped by. I discussed I would like them to decide if she needs more consistent antipsychotic dosing than as needed. I think this will need to be better controlled prior to making any transition to skilled care. I do not believe she is able to make her own decisions and agree with psychiatry previous assessments. She is very aggressive verbally toward me, and has increasing agitation. I have asked nursing staff, to make sure that anyone entering the room has a operator/assistant foreman. I will have 1 of the other hospitalists on see if she is amenable to an examination. Nursing has alerted me that her lower extremities are swelling greatly, and with her history of malignancy I will check a venous duplex bilateral lower extremities. She has been refusing her heparin subcu for DVT prophylaxis. If she will allow the study we can at least determine if she has developed DVTs. Status: Chronic (9) Hypertrophic pulmonary osteoarthropathy: Status: Chronic Additional A&P Information Full code Heparin subcutaneous for DVT prophylaxis As per the consultation from from psychiatry patient is not deemed in capacity to make her own decisions because of advanced bipolar disorder and possible metastasis to brain. Son stated on last conversation that he wants us to pursue guardianship, which has been started. We are awaiting guardianship prior to placement, as skilled facilities are requiring this. Attestations Medical Necessity Statement*: Needs continued hospitalization pending guardianship and assisted facility placement. Coding Level of Care Code Acute Extrusion Die Template Maker for g Fwd Diagnoses Postobstructive pneumonia J18.9 Hemoptysis R04.2 Lung cancer C34.12 Laterality: left Lung location: upper lobe of lung SIADH (syndrome of inappropriate ADH production) E22.2 Liver cirrhosis K74.60 Protein calorie malnutrition E44.0 Protein-calorie malnutrition severity: moderate Cluster A personality disorder F60.89 Bipolar 1 disorder F31.9 Hypertrophic pulmonary osteoarthropathy M89.40
[2019-07-06] MEDS: docusate sodium 100 mg Capsule PO (19:24)
[2019-07-07] VITALS (13 sets, daily range): BP systolic 106–149; BP diastolic 54–73; PULSE 78–123; RESP 16–24; TEMP 36.5–36.9; O2SAT 90–96
[2019-07-07] MEDS: ipratropium-albuterol 3 mL Neb INHALATION ×3 (02:11→15:34)
[2019-07-07] MEDS: oxyCODONE 5 mg IR Tab/Cap PO ×5 (02:14→21:56)
[2019-07-07] MEDS: haloperidol 1 mg Tablet PO ×3 (05:15→17:56)
[2019-07-07] MEDS: metoprolol tartrate 25 mg Tablet 12.5 MG PO (08:49)
[2019-07-07] MEDS: pantoprazole DR 40 mg Tablet PO (08:49)
[2019-07-07] MEDS: benzonatate 100 mg Capsule PO ×3 (08:52→20:30)
[2019-07-07] MEDS: divalproex DR 250 mg Tablet 500 MG PO ×2 (08:52→17:56)
[2019-07-07] MEDS: dexamethasone 4 mg Tablet 1 MG PO ×2 (08:54→17:56)
[2019-07-07] MEDS: budesonide 0.5 mg/2 mL Neb INHALATION (09:22)
--- NOTE | 2019-07-07 10:45 | PC.SOCIAL ---
IMM Not Given IMM not given as patient is not close to discharge at this time. SS to follow up when patient is closer to discharge.
--- NOTE | 2019-07-07 11:44 | P.PN_ITS ---
Subjective Subjective: Interval history: After knocking I walked into Evelyn's room with the nurse as real estate services coordinator. She yelled at me at the door. The nurse relates she yelled at her early on and did not want to see her. Evelyn reports I should leave, and that I cannot examine her. This is her norm for the last 3 to 4 days. Medications: Reviewed: Yes Vitals/I&O/Wt Last Vital Signs Temp 97.7 F 07/07/19 11:25 Pulse 108 H 07/07/19 11:25 Resp 17 07/07/19 11:25 BP 110/54 07/07/19 11:25 Pulse Ox 90 07/07/19 11:25 07/06/19 07/07/19 07/07/19 22:59 06:59 14:59 Intake Total 360 / 360 Balance 360 / 360 Physical Exam Narrative: EXAM NARRATIVE: Patient yells upon entering the room, says and absent edema. Refuses exam. General exam is no apparent distress other than anger Data : 06/21/19 04:47 06/21/19 04:47 A&P Assessment and plan (1) Postobstructive pneumonia: Was on vancomycin and Zosyn. She completed her course of antibiotics. Status: Acute (2) Hemoptysis: Improved. Secondary to adenocarcinoma of the lung Status: Acute (3) Lung cancer: She has completed a course of radiation. She is now going on hospice on discharge from the hospital With likely brain metastasis. She previously refused MRI with contrast for confirmation but MRI without contrast suggested this. Refused MRI with contrast head to assess brain lesions Decadron secondary to brain pathology with edema, 1 mg twice daily Status: Acute Qualifiers: Laterality: left Lung location: upper lobe of lung Qualified Code(s): C34.12 - Malignant neoplasm of upper lobe, left bronchus or lung (4) SIADH (syndrome of inappropriate ADH production): Improved Status: Acute (5) Liver cirrhosis: Status: Acute (6) Protein calorie malnutrition: Status: Acute Qualifiers: Protein-calorie malnutrition severity: moderate Qualified Code(s): E44.0 - Moderate protein-calorie malnutrition (7) Cluster A personality disorder: Unchanged. Psychiatry has evaluated. Status: Acute (8) Bipolar 1 disorder: Unchanged. Psychiatry has evaluated. Son is currently making decisions as patient is not capable of this. However he has been unable to be reached in spite of multiple attempts. Guardianship is being pursued in his directions per last conversation. Currently on Depakote, 500 mg twice daily. She has been refusing any blood draws to monitor levels. I have asked psychiatry to see her regarding her continued agitation. Yesterday, I discussed with them again and psychiatry reported that stopped by. I discussed I would like them to decide if she needs more consistent antipsychotic dosing than as needed. I think this will need to be better controlled prior to making any transition to skilled care. I do not believe she is able to make her own decisions and agree with psychiatry previous assessments. She is very aggressive verbally toward me, and has increasing agitation. I have asked nursing staff, to make sure that anyone entering the room has a real estate services coordinator. Status: Chronic (9) Hypertrophic pulmonary osteoarthropathy: Status: Chronic Additional A&P Information Lower extremity edema. Refuses any evaluation or venous duplex Refuses any further blood work Full code Heparin subcutaneous for DVT prophylaxis which she has been refusing As per the consultation from from psychiatry patient is not deemed in capacity to make her own decisions because of advanced bipolar disorder and possible metastasis to brain. Son stated on last conversation that he wants us to pursue guardianship, which has been started. We are awaiting guardianship prior to placement, as skilled facilities are requiring this. Attestations Medical Necessity Statement*: Needs continued hospitalization, pending guardianship and placement. Coding Level of Care Code Acute Public Health Nurse for g Fwd Diagnoses Postobstructive pneumonia J18.9 Hemoptysis R04.2 Lung cancer C34.12 Laterality: left Lung location: upper lobe of lung SIADH (syndrome of inappropriate ADH production) E22.2 Liver cirrhosis K74.60 Protein calorie malnutrition E44.0 Protein-calorie malnutrition severity: moderate Cluster A personality disorder F60.89 Bipolar 1 disorder F31.9 Hypertrophic pulmonary osteoarthropathy M89.40
--- NOTE | 2019-07-07 13:35 | P.PN_ITS ---
Subjective NPU Subjective: Interval history: Evelyn presents today reporting that she is a little sad because her son has not visited or called. Otherwise it has been a good day. She was generally pleasant and according to nurses they feel like she has been doing better. She is tolerating the Haldol without incident, wishing she could be home, but denying any major problems. Mental Status Exam MSE Comments: This is an underweight, older, white female, with limited dress as she sits in the chair of her room with a pillow under her with nothing on her lower half other than a blanket. She continues to adjust in wearing a zip up sweat jacket on the top part. Limited grooming and adequate eye contact. No abnormal movements. Her legs are mostly exposed, and they are quite edematous. Cooperative with exam in mild distress. Speech was normal rate for the most part and volume. Mood described as okay; affect occasionally tearful. Thought process, mostly organized. Thought content: patient denied any suicidal or homicidal ideation, there were no delusions reported or noted, patient denied any auditory or visual hallucinations. Attention and concentration improving. Memory mostly reliable but none were formally tested. Alert and oriented times three. Insight and judgment are limited and improving. Vitals/I&O/Wt Last Vital Signs Temp 98.4 F 07/07/19 07:53 Pulse 116 H 07/07/19 07:53 Resp 18 07/07/19 07:53 BP 147/66 07/07/19 07:53 Pulse Ox 93 07/07/19 07:53 07/07/19 07/07/19 07/08/19 14:59 22:59 06:59 Intake Total 720 / 720 462 / 1182 Output Total 0 / 0 Balance 720 / 720 462 / 1182 Data NPU : 06/21/19 04:47 06/21/19 04:47 A&P Additional A&P Information (1) Cluster A personality disorder: This is a 63 year old, white female, with either bipolar disord er/schizoaffective disorder, bipolar type, or significant Cluster A pathology or both, along with lung cancer with likely metastases, who presents without full functioning decision making capacity, but some history of aggression which has made it hard for her to be managed and/or placed. She appears to be tolerating the haldol thusfar. Continue current medications except: I would continue haldol in the range of 2-5 mg per day and titrate the Haldol as she tolerates if there is insufficient improvement on the lower dosing up to maybe 7.5mg, and see if that does not help take the edge off of hypomanic/manic state that she has. Would agree with placement if placement were available. She might gain some benefit from a dylan-psychiatric facility, but likely given all the circumstances it would be hard to make that happen, so we will try to titrate the medication to help her be more functional and less disruptive. (2) Bipolar 1 disorder: Attestations NPU Medical Necessity Statement*: N/A. Please refer to primary team for medical necessity. Psychiatry will continue to be of whatever assistance we can. Coding Level of Care Code Acute Integrated Circuit Fabricator for Tee Ryan
[2019-07-08] VITALS (14 sets, daily range): BP systolic 116–147; BP diastolic 57–82; PULSE 78–116; RESP 18–24; TEMP 36.8–36.9; O2SAT 91–97
[2019-07-08] MEDS: haloperidol 1 mg Tablet PO ×3 (00:55→15:13)
[2019-07-08] MEDS: ipratropium-albuterol 3 mL Neb INHALATION ×3 (02:04→20:12)
[2019-07-08] MEDS: oxyCODONE 5 mg IR Tab/Cap PO ×4 (02:45→20:40)
[2019-07-08] MEDS: pantoprazole DR 40 mg Tablet PO (09:13)
[2019-07-08] MEDS: benzonatate 100 mg Capsule PO ×3 (09:13→20:40)
[2019-07-08] MEDS: divalproex DR 250 mg Tablet 500 MG PO ×2 (09:14→17:35)
[2019-07-08] MEDS: dexamethasone 4 mg Tablet 1 MG PO ×2 (09:14→17:33)
--- NOTE | 2019-07-08 12:39 | P.PN_ITS ---
Subjective Subjective: Interval history: Knocked on the door to enter the room to see and evaluate patient. When opening the door patient began yelling for everyone to leave the room. She refused physical exam and refused for anyone to enter the room at this time. Stating that no one is going to ruin my coffee patient upset that people have been coming in and her coffee becomes cold. Patient has reportedly been refusing vitals and assessment. Did agree to taking medications today. Vitals/I&O/Wt Last Vital Signs Temp 98.2 F 07/08/19 10:50 Pulse 78 07/08/19 10:50 Resp 20 H 07/08/19 10:50 BP 122/78 07/08/19 10:50 Pulse Ox 92 07/08/19 10:50 07/07/19 07/08/19 07/08/19 22:59 06:59 14:59 Intake Total 462 / 1182 720 / 720 Output Total 0 / 0 Balance 462 / 1182 720 / 720 Physical Exam Narrative: EXAM NARRATIVE: Physical exam refused by the patient Data : 06/21/19 04:47 06/21/19 04:47 A&P Assessment and plan (1) Postobstructive pneumonia: Completed course of vancomycin and Zosyn Improved Status: Acute (2) Hemoptysis: Improved, this is secondary to adenocarcinoma of the lung Status: Acute (3) Lung cancer: Plan is for patient to go on hospice at time of discharge Completed 1 session of radiation Had refused MRI with contrast of the brain, this was ordered due to concern for brain metastasis Continue with Decadron 1 mg twice daily Status: Acute Qualifiers: Laterality: left Lung location: upper lobe of lung Qualified Code(s): C34.12 - Malignant neoplasm of upper lobe, left bronchus or lung (4) Protein calorie malnutrition: Status: Acute Qualifiers: Protein-calorie malnutrition severity: moderate Qualified Code(s): E44.0 - Moderate protein-calorie malnutrition (5) Cluster A personality disorder: Follow-up with psychiatry recommendations Status: Acute (6) Bipolar 1 disorder: Pursuing guardianship. Patient's son has been unable to be reached and does not wish to be power of document review attorney. Follow-up with case management recommendations. Currently on Depakote 500 mg twice daily On Haldol 1 mg twice daily with 1 mg every 6 hours as needed. May require increase in Haldol dosing today will discuss further with psychiatrist. Status: Chronic Additional A&P Information SIADH Liver cirrhosis Disposition planning: We will continue to work with case management department for proper disposition planning. Patient would very likely benefit from hospice care due to her metastatic lung cancer with brain metastasis. Patient having behavioral disturbances due to underlying psychiatric illness as well as metastatic disease. Continue to adjust medications and titrate as tolerated. However difficult situation given her other medical conditions. Patient has been refusing any further imaging or lab draws, making medication selection and monitoring difficult DVT prophylaxis: Heparin ordered, however patient continues to refuse Diet: Regular diet GI ppx: protonix Attestations Medical Necessity Statement*: Patient requires further hospitalization due to metastatic disease with underlying psychiatric illness until proper disposition planning is obtained Coding Level of Care Code Acute Clinical Trial Coordinator for [facility] Fwd Diagnoses Postobstructive pneumonia J18.9 Hemoptysis R04.2 Lung cancer C34.12 Laterality: left Lung location: upper lobe of lung Protein calorie malnutrition E44.0 Protein-calorie malnutrition severity: moderate Cluster A personality disorder F60.89 Bipolar 1 disorder F31.9
--- NOTE | 2019-07-08 16:18 | PM.NPN ---
Subjective NPU Subjective: Interval history: Evelyn presents today much less talkative than she was yesterday but certainly not with significant outbursts. She was somewhat annoyed with the fact that she was trying to sleep, but she tends to find something to be annoyed with at times. She essentially said that she was doing okay and not having issues. Reviewed this chart and talked to nurse, and we discussed a plan to maximize her Haldol, especially since she is being non-adherent with her Depakote. Mental Status Exam MSE Comments: This is an underweight, white female, with limited dress, grooming, and eye contact. No abnormal movements, except for psychomotor retardation. Semi-cooperative with exam in no acute distress. Speech was limited and decreased rate and volume. Mood described as okay; affect slightly irritable. Thought process, linear. Thought content: patient denied any suicidal or homicidal ideation, there were no delusions reported or noted, patient denied any auditory or visual hallucinations. Attention and concentration were okay, and memory was unreliable, but none were formally tested. She is alert and oriented times person and place. Insight and judgment are impaired Vitals/I&O/Wt Last Vital Signs Temp 98.2 F 07/08/19 04:00 Pulse 112 H 07/08/19 04:00 Resp 20 H 07/08/19 04:00 BP 116/79 07/08/19 04:00 Pulse Ox 97 07/08/19 04:00 07/08/19 14:59 Intake Total 960 / 960 Balance 960 / 960 Data NPU : 06/21/19 04:47 06/21/19 04:47 A&P Assessment and plan (1) Cluster A personality disorder: (1) Cluster A personality disorder: This is a 63 year old, white female, with either bipolar disorder/schizoaffective disorder, bipolar type, or significant Cluster A pathology or both, along with lung cancer with likely metastases, who presents without full functioning decision making capacity, but some history of aggression which has made it hard for her to be managed and/or placed. She appears to be tolerating the haldol thusfar. Continue current medications except: I would continue haldol in the range of 2-5 mg per day and titrate the Haldol as she tolerates if there is insufficient improvement on the lower dosing up to maybe 7.5mg, and see if that does not help take the edge off of hypomanic/manic state that she has. Move to 2mg po bid. Would agree with placement if placement were available. She might gain some benefit from a dylan-psychiatric facility, but likely given all the circumstances it would be hard to make that happen, so we will try to titrate the medication to help her be more functional and less disruptive. (2) Bipolar 1 disorder: Status: Acute (2) Bipolar 1 disorder: Status: Chronic Attestations NPU Medical Necessity Statement*: N/A. Please refer to primary team for medical necessity. Psychiatry will continue to be of whatever assistance we can. Coding Level of Care Code Acute Mechanical Engineering Technologist for Tee Ryan Diagnoses Cluster A personality disorder F60.89 Bipolar 1 disorder F31.9
[2019-07-08] MEDS: haloperidol 1 mg Tablet 2 MG PO (19:11)
[2019-07-08] MEDS: budesonide 0.5 mg/2 mL Neb INHALATION (20:13)
[2019-07-08] MEDS: docusate sodium 100 mg Capsule PO (20:41)
[2019-07-09] VITALS (16 sets, daily range): BP systolic 120–155; BP diastolic 65–80; PULSE 86–115; RESP 17–24; TEMP 36.6–36.9; O2SAT 91–97
[2019-07-09] MEDS: haloperidol 1 mg Tablet PO (02:03)
[2019-07-09] MEDS: oxyCODONE 5 mg IR Tab/Cap PO ×5 (02:04→22:33)
--- NOTE | 2019-07-09 06:55 | PC.SOCIAL ---
IM follow up not given. Patient is not close to being discharged. SS to follow up and provide IM when DC date known.
[2019-07-09] MEDS: dexamethasone 4 mg Tablet 1 MG PO ×2 (08:34→17:19)
[2019-07-09] MEDS: benzonatate 100 mg Capsule PO ×3 (08:34→22:33)
[2019-07-09] MEDS: divalproex DR 250 mg Tablet 500 MG PO ×2 (08:34→17:20)
[2019-07-09] MEDS: metoprolol tartrate 25 mg Tablet 12.5 MG PO (08:35)
[2019-07-09] MEDS: pantoprazole DR 40 mg Tablet PO (08:36)
[2019-07-09] MEDS: haloperidol 1 mg Tablet 2 MG PO ×2 (08:40→17:19)
[2019-07-09] MEDS: ipratropium-albuterol 3 mL Neb INHALATION ×3 (09:12→20:45)
[2019-07-09] MEDS: budesonide 0.5 mg/2 mL Neb INHALATION ×2 (09:12→20:45)
--- NOTE | 2019-07-09 09:40 | P.PN_ITS ---
Subjective Subjective: Interval history: Patient awake in bed at time of exam today. She reported continued discomfort in her chest from her lung cancer, reported that this is unchanged. Patient is much more conversant and appropriate today, allowing for physical exam Medications: Reviewed: Yes Vitals/I&O/Wt Last Vital Signs Temp 97.9 F 07/09/19 08:00 Pulse 106 H 07/09/19 09:20 Resp 20 H 07/09/19 09:14 BP 155/76 07/09/19 08:00 Pulse Ox 97 07/09/19 09:14 07/08/19 07/09/19 07/09/19 22:59 06:59 14:59 Intake Total 220 / 1180 240 / 1420 360 / 360 Balance 220 / 1180 240 / 1420 360 / 360 Physical Exam Narrative: EXAM NARRATIVE: Physical exam refused by the patient Const: COMMON NORMALS: alert GENERAL APPEARANCE: cooperative ORIENTATION/CONSCIOUSNESS: Yes awake and Yes oriented to person HENMT: COMMON NORMALS: normocephalic and head/scalp atraumatic HEAD & SCALP: normocephalic and atraumatic Eye: COMMON NORMALS: PERRL PUPIL: Yes PERRL Neck/C-Spine: COMMON NORMALS: supple GENERAL: Yes normal visual inspection Resp: COMMON NORMALS: normal respiratory effort EFFORT & INSPECTION: Yes able to speak in complete sentences AUSCULTATION: no rhonchi and no wheezes OTHER: Diminished breath sounds bilaterally with prolonged expiratory phase, no wheezing or rhonchi Cardio: COMMON NORMALS: regular rhythm and no murmurs RATE: tachycardic RHYTHM: regular rhythm GI: COMMON NORMALS: soft to palpation and non-tender INSPECTION: No abdominal distension AUSCULTATION: Yes normoactive bowel sounds PALPATION: Yes soft Extremity: COMMON NORMALS: no clubbing, cyanosis or edema and no calf tenderness Neuro: COMMON NORMALS: CN's II-XII intact bilaterally and moves all extremities SENSORIUM/ORIENTATION: Yes alert and Yes oriented to person SPEECH: speech normal Psych: COMMON NORMALS: cooperative Skin: COMMON NORMALS: no rashes or lesions noted GENERAL SKIN EXAM: no rashes or lesions noted Data : 06/21/19 04:47 06/21/19 04:47 A&P Assessment and plan (1) Postobstructive pneumonia: Completed course of vancomycin and Zosyn Resolved Status: Acute (2) Hemoptysis: Improved, this is secondary to adenocarcinoma of the lung Status: Acute (3) Lung cancer: Plan is for patient to go on hospice at time of discharge Previously completed radiation and did not wish to undergo any further treatment Had refused MRI with contrast of the brain, this was ordered due to concern for brain metastasis Continue with Decadron 1 mg twice daily Status: Acute Qualifiers: Laterality: left Lung location: upper lobe of lung Qualified Code(s): C34.12 - Malignant neoplasm of upper lobe, left bronchus or lung (4) Protein calorie malnutrition: Status: Acute Qualifiers: Protein-calorie malnutrition severity: moderate Qualified Code(s): E44.0 - Moderate protein-calorie malnutrition (5) Cluster A personality disorder: Follow-up with psychiatry recommendations Status: Acute (6) Bipolar 1 disorder: Pursuing guardianship. Patient's son has been unable to be reached and does not wish to be power of estate planning attorney. Follow-up with case management recommendations. Currently on Depakote 500 mg twice daily On Haldol 1 mg twice daily with 1 mg every 6 hours as needed. We will continue to follow along with psychiatry recommendations Status: Chronic Additional A&P Information SIADH Liver cirrhosis Disposition planning: We will continue to work with case management department for proper disposition planning. Patient would very likely benefit from hospice care due to her metastatic lung cancer with brain metastasis. Patient having behavioral disturbances due to underlying psychiatric illness as well as metastatic disease. Continue to adjust medications and titrate as tolerated. However difficult situation given her other medical conditions. Patient previously did not wish to have any further treatment for her metastatic lung cancer and refused chemotherapy in the past. Will discuss further with ethics team due to patient's difficult clinical scenario and social situation Patient has been refusing any further imaging or lab draws, making medication selection and monitoring difficult DVT prophylaxis: Heparin ordered, however patient continues to refuse Diet: Regular diet GI ppx: protonix Attestations Medical Necessity Statement*: Requires further hospitalization due to metastatic lung cancer with concern for bipolar disorder and cluster a personality disorder and the need for continued disposition planning Coding Level of Care Code Acute Supercharger Repair Supervisor for [facility] Fwd Diagnoses Postobstructive pneumonia J18.9 Hemoptysis R04.2 Lung cancer C34.12 Laterality: left Lung location: upper lobe of lung Protein calorie malnutrition E44.0 Protein-calorie malnutrition severity: moderate Cluster A personality disorder F60.89 Bipolar 1 disorder F31.9
--- NOTE | 2019-07-09 16:33 | P.PN_ITS ---
Subjective NPU Subjective: Interval history: Evelyn presents today appearing to continue with decrease in irritability. She was kind upon my entry and had a very civil conversation about the challenges of having the cancer and how she was feeling. She denied any major issues, reporting that she is sleeping okay, and continues to focus on her desire to go home. Mental Status Exam MSE Comments: This is an underweight, white female, with limited dress, grooming, and eye contact. She is still more or less not wearing any clothes, but using a towel to cover herself up, exposing her significantly edematous legs which are star contrast to her thin upper body. No abnormal movements except for psychomotor retardation. More cooperative with exam in no acute distress. Speech was decreased rate and volume. Mood described as alright; affect slightly subdued. Thought process, organized. Thought content: patient denied any suicidal or homicidal ideation, there were no delusions reported or noted, pat ient denied any auditory or visual hallucinations. Attention, concentration, and memory appeared intact but were not formally tested. Alert and oriented times three. Insight and judgment are limited. Vitals/I&O/Wt Last Vital Signs Temp 97.8 F 07/10/19 04:00 Pulse 115 H 07/10/19 04:00 Resp 17 07/10/19 04:00 BP 152/79 07/10/19 04:00 Pulse Ox 93 07/10/19 04:00 07/09/19 07/09/19 07/10/19 14:59 22:59 06:59 Intake Total 360 / 360 Output Total 230 / 230 Balance 360 / 360 -230 / 130 Data NPU : 07/10/19 16:44 07/10/19 16:44 A&P Additional A&P Information (1) Cluster A personality disorder: (1) Cluster A personality disorder: This is a 63 year old, white female, with either bipolar disorder/schizoaffective disorder, bipolar type, or significant Cluster A pathology or both, along with lung cancer with likely metastases, who presents without full functioning decision making capacity, but some history of aggression which has made it hard for her to be managed and/or placed. She appears to be tolerating the haldol thusfar. Continue current medications except: I would continue haldol in the range of 4-7.5mg, and see if that does not help take the edge off of hypomanic/manic state that she has. Would agree with placement if placement were available. She might gain some benefit from a dylan-psychiatric facility, but likely given all the circumstances it would be hard to make that happen, so we will try to titrate the medication to help her be more functional and less disruptive. (2) Bipolar 1 disorder: (2) Bipolar 1 disorder: Attestations NPU Medical Necessity Statement*: N/A. Please refer to primary team for medical necessity. Psychiatry will continue to be of whatever assistance we can. Coding Level of Care Code Acute Nuclear Power Reactor Operator for Tee Ryan
[2019-07-10] VITALS (13 sets, daily range): BP systolic 151–163; BP diastolic 69–79; PULSE 79–125; RESP 17–20; TEMP 36.6–36.7; O2SAT 93–98
[2019-07-10] MEDS: oxyCODONE 5 mg IR Tab/Cap PO ×4 (02:30→14:32)
[2019-07-10] MEDS: ipratropium-albuterol 3 mL Neb INHALATION ×2 (02:39→22:00)
--- NOTE | 2019-07-10 04:05 | PC.NURSE ---
Patient had thrown trash, linens, and bath towels in floor. Patient agreed to let me clean up room in floor.
[2019-07-10] MEDS: benzonatate 100 mg Capsule PO ×2 (08:17→14:33)
[2019-07-10] MEDS: haloperidol 1 mg Tablet 2 MG PO (08:18)
[2019-07-10] MEDS: metoprolol tartrate 25 mg Tablet PO (08:18)
[2019-07-10] MEDS: divalproex DR 250 mg Tablet 500 MG PO (08:18)
[2019-07-10] MEDS: dexamethasone 4 mg Tablet 1 MG PO (08:18)
--- NOTE | 2019-07-10 10:05 | PC.NURSE ---
patient yelling in room, this nurse checked on pt and she stated she needed a pain pill due to excruciating pain, she had just received a pain pill at approximately 0630, this nurse messaged Dr. Breen to see if this nurse could give pain pill early due to patient being in excruciating pain. Dr Breen okayed the pain pill to be given at 10:10.
--- NOTE | 2019-07-10 11:37 | PC.SOCIAL ---
Ethics Committee Meeting: Ethics Committee met today to discuss patient's continued care in the hospital. Members present included: Dr. Oscar Forde-physician Dr. Evelyn Ramey-physician Ildefonso Mcnally-TILE MOLDER HAND Operations and TILE MOLDER HAND Nursing Michael Deleon-Saddle And Side Wire Stitcherjaniya Ceja-Deputy Clerk Of Court Mayda Vaughn-Care Coordination Puppy Walker Karen Martinez-Risk Management Kirsty Woods-Utilization Review Zia Post-Deputy Clerk Of Court Ray Kuo-patients son Topics discussed were a summary of patients care up until this point, guardianship hearing scheduled for 07/17/19 at 11:00am, after which time placement at a alf facility will be sought. It was agreed by care team and son that patient is not able to care for herself and her son reports that she would not want to be hooked up to a bunch of tubes so the decision was made to change her status to Allow Natural . Ray was ensured that she would be kept comfortable for the duration of her stay. Mayda Vaughn made arrangements for him to be able to visit with Evelyn after the meeting.
--- NOTE | 2019-07-10 11:54 | PM.EVENT ---
Event Note Event Note: Ethics committee met this morning to discuss case along with patient's son Ray. Decision was made to change code status to AND. Order was written.
--- NOTE | 2019-07-10 12:33 | PC.SOCIAL ---
Meeting to discuss goals of care with Kirsty Woods, Chaplain Michael Deleon,. Jennifer (Risk), Dr Ramey, Dr Robb Forde, Ildefonso Mcnally, Zia DIRECTOR OF CARDIOLOGY SERVICE LINE, Russ DIRECTOR OF CARDIOLOGY SERVICE LINE, myself and Son Rya. After reviewing case in detail and with input of Son and Providers it was determined that patient should be an AND and pursue comfort. It was approved to bring Son to floor to see his Mom. Upon this nurse entering room patient had a large fresh bowel movement that she was laying in. Asked for assistance from FREIGHT ENGINEER and tried to clean her up. Patient was initially very excited about Son being outside door and was very cordial at first to this nurse. Multiple attempts were made to clean up the patient however she continued to feel nauseous. Pail was provided in case. After 30-40 min Son indicates he can try and come back another time. Updated patient she indicates no and wants to see him. Toward the end of this time patient starts becoming verbally aggressive when nurse tries to help. She calmed down enough for Son to enter and then they hug and patient explains she misses him so much and is somewhat tearful. Son tells her he loves her and gives her a hug. Patient starts then interrogating him about where her stuff is and when he tries to clarify she starts yelling and cursing at him. Son indicates I tried to come here and tell you I love you but I can't do this . He leaves the room at that time to leave the facility. This nurse collected stool sample and asked aide to label bag and send to lab. Dr Breen indicated she will order C Diff. Dr Breen is aware patient abdomen was very extended and she was crying out in pain trying to have a bowel movement. Stool was very soft and also loose at times with foul smell. Aide had replaced linens on bed prior to leaving room earlier. Patient was left in bed with bedside commode on side of bed and bedside table with food on top on her side as well. Updated nurses as left the floor.
[2019-07-10] MEDS: lactobacillus 1 Tablet 1 TAB PO (14:33)
--- NOTE | 2019-07-10 15:32 | CT_ITS ---
WS: [id number] CT ABDOMEN PELVIS TECHNIQUE: Contrast-enhanced CT of the abdomen and pelvis with coronal and sagittal reformatted image s. CLINICAL INFORMATION: abdominal distention COMPARISON: May 03, 2019 DLP: 1035.[address] scans at [facility] use at least one of these dose optimization techniques: automat ed exposure control; mA and/or kV adjustment per patient size (includes targeted exams where dose is matched to clinical indication); or iterative reconstruction. FINDINGS:There is a new well-circumscribed focal filling defect involving the superior mesenteric vei n extending to the portal vein confluence. Splenic vein remains patent. Portal veins remain patent. T hrombus within the superior mesenteric vein extends distally into the superior mesenteric vein and il eocolic and small bowel branches. Engorged mesenteric veins. Draining inferior mesenteric vein appear s patent. Thrombus extends down into the SMV branches in the right mesentery. Thrombus measures appro ximately 3.2 x 1.1 cm craniocaudal x transverse. There is diffuse transmural wall edema involving the small bowel diffusely more prominent involving the mid and distal small bowel. Findings are consiste nt with ischemic enteritis. No evidence of acute perforation or pneumatosis. The right colon and hepa tic flexure as well as the transverse colon also appeared to be involved. Descending left colon is de compressed. Celiac artery and SMA are patent. Mild calcified atheromatous disease in the abdominal aorta. Normal bilateral renal parenchymal enhancement. No hydronephrosis. Lumbar scoliosis. Cirrhotic liver with splenomegaly and evidence of portal hypertension. Moderate abdominal and pelvic ascites with diffuse body wall anasarca. Abdominal ascites has increased since the prior examination. Perihepatic and perisplenic ascites. Ascites in the pericolic gutters and pelvis. Large partially ev aluated left pleural effusion with consolidation partially seen in the left lower lobe medially. Righ t lung base is well aerated. Cholelithiasis with fluid in the gallbladder fossa appears unchanged from previous. Gallbladder marlene a fluid presumably due to hepatic disease. IMPRESSION: 1. 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 This extends cephalad to the level of the splenic vein confluence which rem ains patent. Portal veins remain patent. 2. Diffuse ischemic small bowel enteritis with transmural small bowel thickening and submucosal enha ncement. This more prominently involves the mid and distal small bowel, although the jejunum is also involved. No pneumatosis. No free air. 3. Additional ischemia involving the right colon and cecum extending into the transverse colon with bowel wall thickening and submucosal enhancement. 4. Moderate abdominal ascites increased since the prior examination with perihepatic and perisplenic ascites related to cirrhosis with portal hypertension. 5. Moderate ascites in the pelvis with diffuse body wall anasarca. 6. Stable cholelithiasis. 7. Mild aortic atheromatous disease. Proximal celiac and superior mesenteric arteries appear patent. Notified Kemi Breen DO at 07/10/2019 4:41 PM.
[2019-07-10] MEDS: iohexol 300 mg/mL 100 mL Btl IV (16:18)
[2019-07-10 16:52] LABS: Basophils # 0.1 10^3/uL (0.0-0.1); Basophils % 0.5 %; Eosinophils % 0.1 %; Hematocrit 50.6 % (37.0-47.0); Hemoglobin 15.4 g/dL (11.5-15.3); Lymphocytes # 1.2 10^3/uL (0.8-4.8); Lymphocytes % 9.5 %; Mean Corpuscular HGB Conc 30.4 g/dL (30.0-36.0); Mean Corpuscular Hemoglobin 26.6 pg (28.0-34.0); Mean Corpuscular Volume 87.5 fL (81-99); Mean Platelet Volume 9.9 fL (7.4-10.4); Monocytes # 1.6 10^3/uL (0.2-0.9); Monocytes % 12.3 %; Neutrophils # 9.8 10^3/uL (1.8-7.7); Neutrophils % 77.1 %; Nucleated Red Blood Cells % 0 %; Platelet Count 99 10^3/cmm (130-400); Red Blood Count 5.78 10^6/uL (4.1-5.3); Red Cell Distribution Width 21.3 % (12.1-15.1); White Blood Count 12.8 10^3/uL (4.0-10.0)
[2019-07-10 17:15] LABS: Alanine Aminotransferase 18 U/L (0-33); Albumin Level 1.9 g/dL (3.5-5.2); Alkaline Phosphatase 498 IU/L (35-105); Anion Gap 15.2 (5-19); Aspartate Amino Transferase 33 U/L (0-32); Blood Urea Nitrogen 16 mg/dL (8-23); Calcium 7.3 mg/dL (8.5-10.5); Carbon Dioxide 24 mmol/L (22-29); Chloride 96 mmol/L (98-107); Globulin 4.2 g/dL (1.3-4.6); Glomerular Filtration Rate 100.3 mL/min (90-130); Glucose 114 mg/dL (65-115); Osmolality Calculated 269 mOsm/kg (285-295); Potassium 4.2 mmol/L (3.5-5.1); Sodium 131 mmol/L (136-145); Total Bilirubin 0.6 mg/dL (0.15-1.2); Total Protein 6.1 g/dL (6.6-8.7)
--- NOTE | 2019-07-10 18:03 | P.PN_ITS ---
Subjective Subjective: Interval history: Patient evaluated this afternoon. Noted to have new onset diffuse abdominal pain and abdominal distention as well as diarrhea throughout the day. Patient more lethargic and diffusely tender to palpation with hypoactive bowel sounds. Ethics meeting and discussion held this morning to discuss plan of care for patient, patient's son was present during this and discussion with physician, case management as well as ethics committee the recommendation was to continue with hospice care and comfort care including changing patient's resuscitation status to allow natural . Medications: Reviewed: Yes Vitals/I&O/Wt Last Vital Signs Temp 98.0 F 07/10/19 15:43 Pulse 82 07/10/19 15:43 Resp 20 H 07/10/19 15:43 BP 151/73 07/10/19 15:43 Pulse Ox 94 07/10/19 15:43 07/10/19 07/10/19 07/10/19 06:59 14:59 22:59 Output Total 230 / 230 Balance -230 / 130 Physical Exam Const: GENERAL APPEARANCE: in distress and lethargic ORIENTATION/ CONSCIOUSNESS: Yes lethargic HENMT: COMMON NORMALS: normocephalic and head/scalp atraumatic HEAD & SCALP: normocephalic and atraumatic Eye: COMMON NORMALS: PERRL PUPIL: Yes PERRL Neck/C-Spine: COMMON NORMALS: supple GENERAL: Yes normal visual inspection Resp: COMMON NORMALS: normal respiratory effort EFFORT & INSPECTION: Yes able to speak in complete sentences AUSCULTATION: no rhonchi and no wheezes OTHER: Diminished breath sounds bilaterally with prolonged expiratory phase, no wheezing or rhonchi Cardio: COMMON NORMALS: regular rhythm and no murmurs RHYTHM: regular rhythm GI: INSPECTION: Yes anasarca present and Yes abdominal distension AUSCULTATION: Yes hypoactive bowel sounds PALPATION: Yes tender and Yes rigid Extremity: COMMON NORMALS: no calf tenderness OTHER: LE edema 3+ Neuro: SENSORIUM/ORIENTATION: Yes lethargic Data : 06/21/19 04:47 07/10/19 16:44 Micro: Microbiology 07/10/19 Unknown C.difficile Toxin B Gene (PCR) - Final Stool A&P Assessment and plan (1) Postobstructive pneumonia: Completed course of vancomycin and Zosyn Resolved Status: Acute (2) Hemoptysis: Improved, this is secondary to adenocarcinoma of the lung Status: Acute (3) Lung cancer: With metastatic disease and brain metastases as well as liver metastases Discussion with ethics committee and plan is to change patient to allow natural and continue with hospice care Status: Acute Qualifiers: Laterality: left Lung location: upper lobe of lung Qualified Code(s): C34.12 - Malignant neoplasm of upper lobe, left bronchus or lung (4) Protein calorie malnutrition: Status: Acute Qualifiers: Protein-calorie malnutrition severity: moderate Qualified Code(s): E44.0 - Moderate protein-calorie malnutrition (5) Cluster A personality disorder: Follow-up with psychiatry recommendations Status: Acute (6) Bipolar 1 disorder: Pursuing guardianship. Patient's son has been unable to be reached and does not wish to be power of trust and estates attorney. Follow-up with case management recommendations. Currently on Depakote 500 mg twice daily On Haldol 1 mg twice daily with 1 mg every 6 hours as needed. We will continue to follow along with psychiatry recommendations Status: Chronic Additional A&P Information Patient had acute onset of diffuse abdominal pain today with rigid abdomen, distention and hypoactive bowel sounds therefore sent down for stat CT scan. 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 This was discussed with general surgeon, Dr. Tang along with the radiologist. Patient was given treatment dose Lovenox. She had been refusing her heparin throughout her hospital stay and has metastatic cancer. Patient's son had come in today to meet with ethics committee as he previously did not wish to pursue guardianship and patient was awaiting guardianship to be appoint ed by the state. Patient had previously declined any type of treatment for her metastatic lung cancer. The decision by ethics committee was to make patient allow natural and to continue with comfort measures. With this acute event patient will likely not survive through the night and will be transitioned solely to comfort care measures. Morphine and Ativan ordered IV as needed for pain and air hunger, atropine ordered for airway congestion Attestations Medical Necessity Statement*: Patient requires hospitalization due to acute superior mesenteric thrombosis with metastatic lung cancer requiring comfort care Coding Level of Care Code Acute Driller Operator for Chg Fwd Diagnoses Postobstructive pneumonia J18.9 Hemoptysis R04.2 Lung cancer C34.12 Laterality: left Lung location: upper lobe of lung Protein calorie malnutrition E44.0 Protein-calorie malnutrition severity: moderate Cluster A personality disorder F60.89 Bipolar 1 disorder F31.9
[2019-07-10 19:32] LABS: Slide Review Slide Review Perform
[2019-07-10] MEDS: morphine 4 mg/mL SDV 1 mL 2 MG IVP (19:42)
[2019-07-10] MEDS: budesonide 0.5 mg/2 mL Neb INHALATION (22:00)
[2019-07-11] VITALS (9 sets, daily range): BP systolic 140; BP diastolic 84; PULSE 112–126; RESP 16–22; TEMP 37.4; O2SAT 93–96
[2019-07-11] MEDS: LORazepam 2 mg/mL INJ 1 mL IVP ×3 (00:06→16:01)
[2019-07-11] MEDS: morphine 4 mg/mL SDV 1 mL 2 MG IVP ×4 (00:06→16:01)
--- NOTE | 2019-07-11 07:48 | PC.SOCIAL ---
IM Follow up not given. Patient had acute events occur over last 24 hours and was made AND status along with comfort measures initiated. Pt will likely pass while in hospital and prior to guardianship hearing. Updated Son that patient is expected to pass away soon and to call with any questions. He was not able to answer call and did not respond to message. This was sent yesterday early evening.
[2019-07-11] MEDS: ipratropium-albuterol 3 mL Neb INHALATION (08:52)
[2019-07-11] MEDS: budesonide 0.5 mg/2 mL Neb INHALATION (08:52)
--- NOTE | 2019-07-11 15:09 | PM.PN ---
Subjective Subjective: Interval history: This morning patient was examined, she appears quite confused, is trying to drink from her water glass, but if he appears too fatigued to take a sip from her straw, tries to say a few weird words here and there, but does not make sense, appears quite lethargic, no complaints of pain, no complaints of anxiety Medications: Reviewed: Yes Vitals/I&O/Wt Last Vital Signs Temp 98.0 F 07/10/19 15:43 Pulse 114 H 07/11/19 09:02 Resp 20 H 07/11/19 12:44 BP 151/73 07/10/19 15:43 Pulse Ox 93 07/11/19 12:44 07/11/19 07/11/19 07/11/19 06:59 14:59 22:59 Intake Total 90 / 90 Balance 90 / 90 Physical Exam Narrative: EXAM NARRATIVE: Appears lethargic, confused Const: GENERAL APPEARANCE: lethargic and ill appearing ORIENTATION/CONSCIOUSNESS: Yes lethargic Neck/C-Spine: COMMON NORMALS: no JVD Resp: COMMON NORMALS: normal respiratory effort and clear to auscultation bilaterally AUSCULTATION: clear to auscultation bilaterally Cardio: COMMON NORMALS: no JVD, regular rate, regular rhythm, S1 normal heart sound and S2 normal heart sound RATE: regular rate RHYTHM: regular rhythm HEART SOUNDS: S1 normal and S2 normal GI: COMMON NORMALS: soft to palpation and no masses INSPECTION: Yes abdominal distension AUSCULTATION: Yes hypoactive bowel sounds PALPATION: Yes soft Extremity: COMMON NORMALS: normal capillary refill, no clubbing, cyanosis or edema, no calf tenderness and no pedal edema Neuro: SENSORIUM/ORIENTATION: Yes lethargic Psych: SPEECH: Yes incoherent Data : 07/10/19 16:44 07/10/19 16:44 Micro: Microbiology 07/10/19 Unknown C.difficile Toxin B Gene (PCR) - Final Stool A&P Assessment and plan (1) Postobstructive pneumonia: Currently on comfort care measures Status: Acute (2) Hemoptysis: Improved, this is secondary to adenocarcinoma of the lung Status: Acute (3) Lung cancer: With metastatic disease and brain metastases as well as liver metastases Discussion with ethics committee patient is DNR/DNI, on comfort care Status: Acute Qualifiers: Laterality: left Lung location: upper lobe of lung Qualified Code(s): C34.12 - Malignant neoplasm of upper lobe, left bronchus or lung (4) Protein calorie malnutrition: Status: Acute Qualifiers: Protein-calorie malnutrition severity: moderate Qualified Code(s): E44.0 - Moderate protein-calorie malnutrition (5) Cluster A personality disorder: Follow-up with psychiatry recommendations Status: Acute (6) Bipolar 1 disorder: Pursuing guardianship. Patient's son has been unable to be reached and does not wish to be power of civil litigation attorney. Follow-up with case management recommendations. Currently on Depakote 500 mg twice daily On Haldol 1 mg twice daily with 1 mg every 6 hours as needed. We will continue to follow along with psychiatry recommendations Status: Chronic (7) Ischemia, bowel: -Poor surgical candidate, DNR/DNI, on comfort care Status: Acute Additional A&P Information Patient has metastatic prostate cancer, postobstructive pneumonia, and bowel ischemia -Patient is DNR/DNI -After discussion with ethics committee, patient was made comfort care -Currently on comfort care orders Patient had acute onset of diffuse abdominal pain today with rigid abdomen, distention and hypoactive bowel sounds therefore sent down for stat CT scan. 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 This was discussed with general surgeon, Dr. Tang along with the radiologist. Patient was given treatment dose Lovenox. She had been refusing her heparin throughout her hospital stay and has metastatic cancer. Patient's son had come in today to meet with ethics committee as he previously did not wish to pursue guardianship and patient was awaiting guardianship to be appointed by the state. Patient had previously declined any type of treatment for her metastatic lung cancer. The decision by ethics committee was to make patient allow natural and to continue with comfort measures. With this acute event patient will likely not survive through the night and will be transitioned solely to comfort care measures. Morphine and Ativan ordered IV as needed for pain and air hunger, atropine ordered for airway congestion Attestations Medical Necessity Statement*: Patient requires continued hospitalization due to comfort care from pneumonia, lung cancer, bowel ischemia Coding Level of Care Code Acute Clay Dry Press Operator for [facility] Diagnoses Postobstructive pneumonia J18.9 Hemoptysis R04.2 Lung cancer C34.12 Laterality: left Lung location: upper lobe of lung Protein calorie malnutrition E44.0 Protein-calorie malnutrition severity: moderate Cluster A personality disorder F60.89 Bipolar 1 disorder F31.9 Ischemia, bowel K55.9
[2019-07-11] MEDS: LORazepam 2 mg/mL INJ 1 mL SUBLINGUAL (21:51)
[2019-07-12] VITALS (12 sets, daily range): BP systolic 123–156; BP diastolic 71–82; PULSE 120–141; RESP 16–26; TEMP 36.6–38.6; O2SAT 82–96
[2019-07-12] MEDS: LORazepam 2 mg/mL INJ 1 mL SUBLINGUAL ×3 (02:36→06:22)
--- NOTE | 2019-07-12 15:39 | P.PN_ITS ---
Subjective Subjective: Interval history: This morning patient does not open her eyes to sternal rub, is grunting, does not say words, she is on aerosol mask, Medications: Reviewed: Yes Vitals/I&O/Wt Last Vital Signs Temp 98.2 F 07/12/19 15:34 Pulse 137 H 07/12/19 15:34 Resp 16 07/12/19 15:34 BP 131/72 07/12/19 15:34 Pulse Ox 96 07/12/19 15:34 Physical Exam Narrative: EXAM NARRATIVE: Appears lethargic, confused Const: GENERAL APPEARANCE: lethargic and ill appearing ORIENTATION/CONSCIOUSNESS: Yes lethargic Neck/C-Spine: COMMON NORMALS: no JVD Resp: COMMON NORMALS: normal respiratory effort and clear to auscultation bilaterally AUSCULTATION: clear to auscultation bilaterally Cardio: COMMON NORMALS: no JVD, regular rate, regular rhythm, S1 normal heart sound and S2 normal heart sound RATE: regular rate RHYTHM: regular rhythm HEART SOUNDS: S1 normal and S2 normal GI: COMMON NORMALS: soft to palpation and no masses INSPECTION: Yes abd ominal distension AUSCULTATION: Yes hypoactive bowel sounds PALPATION: Yes soft Extremity: COMMON NORMALS: normal capillary refill, no clubbing, cyanosis or edema, no calf tenderness and no pedal edema Neuro: SENSORIUM/ORIENTATION: Yes lethargic Psych: SPEECH: Yes incoherent Data : 07/10/19 16:44 07/10/19 16:44 A&P Assessment and plan (1) Postobstructive pneumonia: Currently on comfort care measures Status: Acute (2) Hemoptysis: Improved, this is secondary to adenocarcinoma of the lung Status: Acute (3) Lung cancer: With metastatic disease and brain metastases as well as liver metastases Discussion with ethics committee patient is DNR/DNI, on comfort care Status: Acute Qualifiers: Laterality: left Lung location: upper lobe of lung Qualified Code(s): C34.12 - Malignant neoplasm of upper lobe, left bronchus or lung (4) Protein calorie malnutrition: Status: Acute Qualifiers: Protein-calorie malnutrition severity: moderate Qualified Code(s): E44.0 - Moderate protein-calorie malnutrition (5) Cluster A personality disorder: Follow-up with psychiatry recommendations Status: Acute (6) Bipolar 1 disorder: Pursuing guardianship. Patient's son has been unable to be reached and does not wish to be power of exchange specialist. Follow-up with case management recommendations. Currently on Depakote 500 mg twice daily On Haldol 1 mg twice daily with 1 mg every 6 hours as needed. We will continue to follow along with psychiatry recommendations Status: Chronic (7) Ischemia, bowel: -Poor surgical candidate, DNR/DNI, on comfort care Status: Acute Additional A&P Information Patient has metastatic prostate cancer, postobstructive pneumonia, and bowel ischemia -Patient is DNR/DNI -After discussion with ethics committee, patient was made comfort care -Currently on comfort care orders Patient had acute onset of diffuse abdominal pain today with rigid abdomen, distention and hypoactive bowel sounds therefore sent down for stat CT scan. 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 This was discussed with general surgeon, Dr. Tang along with the radiologist. Patient was given treatment dose Lovenox. She had been refusing her heparin throughout her hospital stay and has metastatic cancer. Patient's son had come in today to meet with ethics committee as he previously did not wish to pursue guardianship and patient was awaiting guardianship to be appointed by the state. Patient had previously declined any type of treatment for her metastatic lung cancer. The decision by ethics committee was to make patient allow natural and to continue with comfort measures. With this acute event patient will likely not survive through the night and will be transitioned solely to comfort care measures. Morphine and Ativan ordered IV as needed for pain and air hunger, atropine ordered for airway congestion Attestations Medical Necessity Statement*: Currently patient is on comfort care, continue hospitalization for comfort care Coding Level of Care Code Acute Compliance Mgr for Chg Fwd Diagnoses Postobstructive pneumonia J18.9 Hemoptysis R04.2 Lung cancer C34.12 Laterality: left Lung location: upper lobe of lung Protein calorie malnutrition E44.0 Protein-calorie malnutrition severity: moderate Cluster A personality disorder F60.89 Bipolar 1 disorder F31.9 Ischemia, bowel K55.9
[2019-07-13] VITALS (7 sets, daily range): BP systolic 58–156; BP diastolic 42–90; PULSE 137–147; RESP 20–28; TEMP 37.3–39.9; O2SAT 57–94
--- NOTE | 2019-07-13 08:44 | PC.SOCIAL ---
IMM not updated Did not update pt on IMM. Pt is now on comfort care & is not responding. Pt was seeking guardianship, court date is 07/17/19. Notes show that pt may not leave the hospital.
--- NOTE | 2019-07-13 09:39 | PC.NURSE ---
0800 Patient rec a bed bath, turned to left side. Patient incont of urine, dark in color and foul order. Patient moaned out during changing but settled down after a few minutes. Patient temp 99. Called Patient's son and left a message of patient's current condition. Reported to Dr. Lainez of patient's current condition.
--- NOTE | 2019-07-13 12:15 | PC.NURSE ---
Paient tuned and rec angel luis care, suction to remove thick secretions.
--- NOTE | 2019-07-13 13:56 | P.PN_ITS ---
Subjective Subjective: Interval history: Overnight patient had febrile episodes, this morning patient is fairly nonresponsive, does grunt minimal intermittently, Medications: Reviewed: Yes Vitals/I&O/Wt Last Vital Signs Temp 102.3 F H 07/13/19 12:37 Pulse 144 H 07/13/19 12:37 Resp 28 H 07/13/19 12:48 BP 134/72 07/13/19 07:11 Pulse Ox 91 07/13/19 12:48 07/12/19 07/13/19 07/13/19 22:59 06:59 14:59 Intake Total 0 / 0 0 / 0 Balance 0 / 0 0 / 0 Physical Exam Narrative: EXAM NARRATIVE: Appears lethargic, nonresponsive, does not follow commands Const: GENERAL APPEARANCE: ill appearing Neck/C-Spine: COMMON NORMALS: no JVD Resp: EFFORT & INSPECTION: Yes tachypneic, Yes labored and Yes grunting AUSCULTATION: wheezes Cardio: COMMON NORMALS: no JVD, regular rate, regular rhythm, S1 normal heart sound and S2 normal heart sound RATE: regular rate and tachycardic RHYTHM: regular rhythm HEART SOUNDS: S1 normal and S2 normal GI: COMMON NORMALS: soft to palpation and no masses INSPECTION: Yes abdominal distension AUSCULTATION: Yes hypoactive bowel sounds PALPATION: Yes soft Extremity: COMMON NORMALS: normal capillary refill, no clubbing, cyanosis or edema, no calf tenderness and no pedal edema Neuro: SENSORIUM/ORIENTATION: Yes somnolent Psych: SPEECH: Yes incoherent Data : 07/10/19 16:44 07/10/19 16:44 A&P Assessment and plan (1) Postobstructive pneumonia: Currently on comfort care measures Status: Acute (2) Hemoptysis: Improved, this is secondary to adenocarcinoma of the lung Status: Acute (3) Lung cancer: With metastatic disease and brain metastases as well as liver metastases Discussion with ethics committee patient is DNR/DNI, on comfort care Status: Acute Qualifiers: Laterality: left Lung location: upper lobe of lung Qualified Code(s): C34.12 - Malignant neoplasm of upper lobe, left bronchus or lung (4) Protein calorie malnutrition: Status: Acute Qualifiers: Protein-calorie malnutrition severity: moderate Qualified Code(s): E44.0 - Moderate protein-calorie malnutrition (5) Cluster A personality disorder: Follow-up with psychiatry recommendations Status: Acute (6) Bipolar 1 disorder: On comfort care Status: Chronic (7) Ischemia, bowel: -Poor surgical candidate, DNR/DNI, on comfort care Status: Acute Additional A&P Information Patient has metastatic prostate cancer, postobstructive pneumonia, and bowel ischemia -Patient is DNR/DNI -After discussion with ethics committee, patient was made comfort care -Currently on comfort care orders Patient had acute onset of diffuse abdominal pain today with rigid abdomen, distention and hypoactive bowel sounds therefore sent down for stat CT scan. 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 This was discussed with general surgeon, Dr. Tang along with the radiologist. Patient was given treatment dose Lovenox. She had been refusing her heparin throughout her hospital stay and has metastatic cancer. Patient's son had come in today to meet with ethics committee as he previously did not wish to pursue guardianship and patient was awaiting guardianship to be appointed by the state. Patient had previously declined any type of treatment for her metastatic lung cancer. The decision by ethics committee was to make patient allow natural and to continue with comfort measures. With this acute event patient will likely not survive through the night and will be transitioned solely to comfort care measures. Morphine and Ativan ordered IV as needed for pain and air hunger, atropine ordered for airway congestion Attestations Medical Necessity Statement*: Patient requires hospitalization, on comfort care Coding Level of Care Code Acute Cardiovascular Sonographer for g Fwd Diagnoses Postobstructive pneumonia J18.9 Hemoptysis R04.2 Lung cancer C34.12 Laterality: left Lung location: upper lobe of lung Protein calorie malnutrition E44.0 Protein-calorie malnutrition severity: moderate Cluster A personality disorder F60.89 Bipolar 1 disorder F31.9 Ischemia, bowel K55.9
--- NOTE | 2019-07-14 13:09 | P.DES_ITS ---
Discharge Providers DDS Date of Admission: 06/14/19 19:43 Date Summary Completed: 07/14/19 Attending Provider at Admission: Carolyn Samuel MD Time of : 16:39 Attending Provider at Discharge: Luis Cummings MD Primary Care Provider: Krista Bush NP DS Diagnoses Hospital Diagnoses (1) Postobstructive pneumonia: (2) Hemoptysis: (3) Lung cancer: Qualifiers: Laterality: left Lung location: upper lobe of lung Qualified Code(s): C34.12 - Malignant neoplasm of upper lobe, left bronchus or lung (4) Protein calorie malnutrition: Qualifiers: Protein-calorie malnutrition severity: moderate Qualified Code(s): E44.0 - Moderate protein-calorie malnutrition (5) Cluster A personality disorder: (6) Bipolar 1 disorder: Problem details: Concern from brain mets. Associated with psychoses in the past. (7) Ischemia, bowel: Reason for Visit Reason for Visit: Reason For Visit: sob Summary Date and Time of : Date of : 07/13/19 Time of : 16:39 Summary: Summary: This is a 63-year-old female with a past medical history of invasive adenocarcinoma of the lung with brain metastasis, liver cirrhosis secondary hepatitis C currently not undergoing treatment, former smoker, currently undergoing radiation therapy, has refused chemotherapy and other interventions such as thoracocentesis, currently living in a hotel, has a complex psychiatric history, bipolar disorder, noncompliance who was seen at the radiation oncologist office, when she started developing hemoptysis, she was hypoxic, so she was brought over to [facility] for further evaluation. Patient was admitted to [facility] for for hypoxia and hemoptysis secondary to postobstructive pneumonia, she was placed on broad-spectrum antibiotics. 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 She was also found to have bilateral lower extremity venous stasis dermatitis. She was also found to have protein calorie malnutrition. Psychiatry was consulted, who advised patient likely has cluster a personality disorder, with components of bipolar disorder, schizoaffective disorder, she was placed on Haldol. Patient's condition slowly started to deteriorate, she had episodes of agitation, confusion. Patient wanted to go on to hospice, refused radiation therapy, refused chemotherapy, refused further interventions for her lung cancer. There was consideration for hospice on discharge. Patient eventually started to refuse blood work, had episodes of psychosis, refused to see physicians, was aggressive, agitated, quite verbal with staff and physician. After consultation with psychiatry, and [facility] ethics committee, it was deemed that patient does not have capacity to make decisions. Patients son did not want to pursue guardianship. Patient CODE STATUS was changed to DNR/DNI after discussion with patient's son Ray, and ethics committee. On 07/10/2019 patient was noted to have abdominal pain and abdominal distention, found to have superior mesenteric vein thrombosis and diffuse bowel ischemia on CT imaging, after discussion with ethics committee, it was deemed that patient would be a poor candidate for medical or surgical interventions, would proceed with inpatient comfort care measures. Inpatient comfort care measures were initiated, patient 07/13/2019 at 1639. Additional Data: Advance directives?: No Discharge Plan Discharge Patient Disposition: Home, Self-Care Condition: Stable Prescriptions: No Action ascorbic acid (vitamin C) 100 mg tablet 100 mg PO DAILY RF: 0 multivitamin [Daily Multi-Vitamin] Tablet 1 tab PO DAILY RF: 0 magnesium 200 mg tablet 200 mg PO DAILY RF: 0 polyethylene glycol 3350 [Miralax] 17 gram Powder In Packet 17 g PO DAILY Qty: 30 RF: 0 budesonide 0.5 mg/2 mL Suspension For Nebulization 0.5 mg inhalation BID.RESPIRATORY Qty: 120 RF: 0 ipratropium-albuterol 0.5 mg-3 mg(2.5 mg base)/3 mL solution for nebulization 3 ml INHALATION QID Qty: 180 RF: 0 divalproex 250 mg tablet,delayed release (DR/EC) 250 mg PO BEDTIME RF: 0 hydrocodone-acetaminophen 5-325 mg tablet 5 - 325 tab PO Q6H PRN (Reason: Pain) RF: 0 citalopram 20 mg tablet 20 mg PO DAILY RF: 0 dexamethasone 2 mg tablet 2 mg PO BID RF: 0 pantoprazole 40 mg tablet,delayed release (DR/EC) 40 mg PO DAILY RF: 0 Discharge Date/Time: 07/14/19 00:05 DS Attestations Time Spent in /Discharge Care*: less than 30 min Quality - AMI: AMI present?: No Quality - Stroke: CVA present?: No Symptom Onset Unknown: No Quality - VTE: VTE present?: No Deep Vein Thrombosis/Pulmonary Embolism Present on Admission: No Coding Level of Care Code Acute Protective [employer] for [employer] Fwd Diagnoses Postobstructive pneumonia J18.9 Hemoptysis R04.2 Lung cancer C34.12 Laterality: left Lung location: upper lobe of lung Protein calorie malnutrition E44.0 Protein-calorie malnutrition severity: moderate Cluster A personality disorder F60.89 Bipolar 1 disorder F31.9 Ischemia, bowel K55.9
== END 2019-07-14 00:05 | disposition expired | DRG 193 ==
LOC: ER 16:36 → ICU 20:15 → CSU 20:16 → MEDSURG 06-15 14:46
PROVIDERS: Family Medicine; Internal Medicine; Student in an Organized Health Care Education/Training Program; Admitting Provider Internal Medicine; Emergency Provider Family Medicine; PCP Nurse Practitioner Family; Visit Provider Family Medicine
DX: J18.9 Pneumonia, unspecified organism (principal); G93.6 Cerebral edema; K55.019 Acute (reversible) ischemia of small intestine, extent unspecified; C34.12 Malignant neoplasm of upper lobe, left bronchus or lung; R04.2 Hemoptysis; E44.0 Moderate protein-calorie malnutrition; E22.2 Syndrome of inappropriate secretion of antidiuretic hormone; C79.31 Secondary malignant neoplasm of brain; Z68.1 Body mass index [BMI] 19.9 or less, adult; Z66 Do not resuscitate; Z51.5 Encounter for palliative care; F60.89 Other specific personality disorders; M89.40 Other hypertrophic osteoarthropathy, unspecified site; F31.9 Bipolar disorder, unspecified; Z87.891 Personal history of nicotine dependence; Z79.899 Other long term (current) drug therapy; L30.8 Other specified dermatitis; F25.9 Schizoaffective disorder, unspecified; R09.02 Hypoxemia; Z91.14 Patient's other noncompliance with medication regimen; F41.9 Anxiety disorder, unspecified; B18.2 Chronic viral hepatitis C; D50.9 Iron deficiency anemia, unspecified; Z20.828 Contact with and (suspected) exposure to other viral communicable diseases; F06.30 Mood disorder due to known physiological condition, unspecified; K74.69 Other cirrhosis of liver; G89.3 Neoplasm related pain (acute) (chronic)
CPT/HCPCS: 12345; 36415; 71275; 74177; 76604; 80048; 80053; 80202; 82436; 82728; 83605; 83615; 83930; 83935; 84133; 84145; 84300; 85025; 85049; 85384; 85730; 86140; 86403; 87040; 87070; 87205; 87449; 87493; 87635; 87804; 94640; 96372; 96375; 99283; J1956; J2060; J2270; J2543; J3370; J7030; J7050; J7626; J8540; Q9967